=== PATIENT | female | born 1960 | race African-American/Black ===

== ENCOUNTER 2017-12-07 13:21 | Inpatient (IN) | payer MEDICARE, MEDICAID ==
[~2017-12-07] VITALS: Ht 165.1 cm; Wt 113.5 kg
--- NOTE | 2017-12-07 13:41 | PHYS DOC ---
Past History Past Medical History: CVA, Dementia, Hypertension, Schizophrenia Additional Past Medical Histor: dysphagia and aphasia Smoking: Non-smoker Alcohol Use: None Drug Use: None Adult General Chief Complaint Chief Complaint: PSYCH EVALUATION HPI HPI Patient is a pleasant 57-year-old female with known history of hypertension prior CVA with dysphagia and aphasia, advance dementia, diabetes and schizophrenia who presents with increased agitation and aggressive behavior while at the intermediate. She's been prescreened by psychiatric roaster supervisor's who sent her here for medical clearance before being admitted to the senior behavioral psych floor here at the hospital here patient on initial evaluation has no complaints although she is very difficult to understand she speaks in nonsensical words and only complains of tooth pain where her teeth are loose. She denies any chest pain, abdominal pain as far as I can understand patient is no complaint of fever or shortness of breath Review of Systems Review of Systems Patient is not a provide history other than basic this or no answers although she was very difficult to understand with her aphasia and dysphagia Most was provided as provided by intermediate notes and an oral history from nursing staff All other systems were reviewed and found to be within normal limits, except as documented in this note. Physical Exam Physical Exam Of the vital signs on the chart they are unremarkable and normal looking no evidence of hypoxia or fever Constitutional: Well developed, well nourished, she is obese no acute distress patient is somewhat dirty with grease in hair and considerable debris in her hair HENT: Normocephalic, atraumatic, bilateral external ears normal, oropharynx moist no erythema she has to teeth numbers 10 and 11 that are loose somewhat discolored although in place, no oral exudates, nose normal. [] Eyes: PERRLA, EOMI, conjunctiva normal, no discharge. [] Neck: Normal range of motion, no tenderness, supple, no stridor. No anterior lymphadenopathy [] Cardiovascular:Heart rate regular rhythm, no murmur [] Lungs & Thorax: Bilateral breath sounds clear to auscultation [] Abdomen: Bowel sounds normal, soft, no tenderness, Skin: Warm, dry, no erythema, no rash. [] Extremities: No tenderness, no clubbing or cyanosis noted no edema lower extremities noted Neurologic: Alert and oriented X 0, patient moves all limbs spontaneously she has nonsensical speech but is able to utter words that are understandable Psychologic: She is confused somewhat resistant being helped move she is not violent or aggressive at this time Current Patient Data Lab Results Laboratory Tests Test 12/07/17 13:56 12/07/17 15:00 White Blood Count 8.9 x10^3/uL (4.0-11.0) Red Blood Count 3.86 x10^6/uL (3.50-5.40) Hemoglobin 11.3 g/dL (12.0-15.5) L Hematocrit 33.3 % (36.0-47.0) L Mean Corpuscular Volume 86 fL (79-100) Mean Corpuscular Hemoglobin 29 pg (25-35) Mean Corpuscular Hemoglobin Concent 34 g/dL (31-37) Red Cell Distribution Width 13.2 % (11.5-14.5) Platelet Count 252 x10^3/uL (140-400) Neutrophils (%) (Auto) 65 % (31-73) Lymphocytes (%) (Auto) 23 % (24-48) L Monocytes (%) (Auto) 7 % (0-9) Eosinophils (%) (Auto) 5 % (0-3) H Basophils (%) (Auto) 0 % (0-3) Neutrophils # (Auto) 5.8 x10^3uL (1.8-7.7) Lymphocytes # (Auto) 2.0 x10^3/uL (1.0-4.8) Monocytes # (Auto) 0.6 x10^3/uL (0.0-1.1) Eosinophils # (Auto) 0.4 x10^3/uL (0.0-0.7) Basophils # (Auto) 0.0 x10^3/uL (0.0-0.2) Sodium Level 136 mmol/L (136-145) Potassium Level 4.1 mmol/L (3.5-5.1) Chloride Level 100 mmol/L (98-107) Carbon Dioxide Level 27 mmol/L (21-32) Anion Gap 9 (6-14) Blood Urea Nitrogen 22 mg/dL (7-20) H Creatinine 0.8 mg/dL (0.6-1.0) Estimated GFR (Cockcroft-Gault) 90.1 BUN/Creatinine Ratio 28 (6-20) H Glucose Level 110 mg/dL (70-99) H Calcium Level 9.0 mg/dL (8.5-10.1) Magnesium Level 1.7 mg/dL (1.8-2.4) L Total Bilirubin 0.1 mg/dL (0.2-1.0) L Aspartate Amino Transferase (AST) 13 U/L (15-37) L Alanine Aminotransferase (ALT) 19 U/L (14-59) Alkaline Phosphatase 75 U/L (46-116) Troponin I Quantitative < 0.017 ng/mL (0-0.055) Total Protein 7.8 g/dL (6.4-8.2) Albumin 3.4 g/dL (3.4-5.0) Albumin/Globulin Ratio 0.8 (1.0-1.7) L Salicylates Level 1.3 mg/dL (2.8-20.0) L Salicylate Last Dose Date Unk Salicylate Last Dose Time Unk Acetaminophen Level < 2.0 mcg/mL (10-30) L Acetaminophen Last Dose Date Unk Acetaminophen Last Dose Time Unk Ethyl Alcohol Level < 10 mg/dL (0-10) Urine Collection Type U cath Urine Color Straw Urine Clarity Clear Urine pH 6.0 Urine Specific [place] 1.015 Urine Protein Neg (NEG-TRACE) Urine Glucose (UA) Neg mg/dL (NEG) Urine Ketones (Stick) Neg mg/dL (NEG) Urine Blood Neg (NEG) Urine Nitrite Neg (NEG) Urine Bilirubin Neg (NEG) Urine Urobilinogen Dipstick 0.2 mg/dL (0.2 mg/dL) Urine Leukocyte Esterase Neg (NEG) Urine RBC 1-2 /HPF (0-2) Urine WBC 1-4 /HPF (0-4) Urine Squamous Epithelial Cells Mod /LPF Urine Bacteria 0 /HPF (0-FEW) Urine Mucus Slight /LPF Urine Opiates Screen Neg (NEG) Urine Methadone Screen Neg (NEG) Urine Barbiturates Neg (NEG) Urine Phencyclidine Screen Neg (NEG) Urine Amphetamine/Methamphetamine Neg (NEG) Urine Benzodiazepines Screen Neg (NEG) Urine Cocaine Screen Neg (NEG) Urine Cannabinoids Screen Neg (NEG) Urine Ethyl Alcohol Neg (NEG) EKG EKG [] Radiology/Procedures Radiology/Procedures [] Course & Med Decision Making Course & Med Decision Making Pertinent Labs and Imaging studies reviewed. (See chart for details) []She presents with worsening dementia and confusion as well as agitation intermediate. She is got a history of aphasia and dysphagia although she has no new signs or symptoms of a stroke today patient's urinalysis is unremarkable, CBC is unremarkable, CMP is unremarkable, her troponin and EKG unremarkable. Her urine drug screen is negative, alcohol, Tylenol, and salicylate levels are unremarkable she's been clear for the [facility] psych for Jorge Disclaimer Jorge Disclaimer This electronic medical record was generated, in whole or in part, using a voice recognition dictation system. Departure Departure: Impression: Primary Impression: Dementia Additional Impression: Confusion state Disposition: ADMITTED INPATIENT Admitting Physician: Other Condition: GUARDED Problem Qualifiers BLESSING GOLDEN MD Dec 07, 2017 13:41
[2017-12-07 14:13] LABS: BASO % 0 % (0-3); EOS # 0.4 x10^3/uL (0.0-0.7); EOS % 5 % (0-3); HEMATOCRIT 33.3 % (36.0-47.0); HEMOGLOBIN 11.3 g/dL (12.0-15.5); LYMPH % 23 % (24-48); MEAN CORPUSCULAR HEMOGLOBIN 29 pg (25-35); MEAN CORPUSCULAR HGB CONC 34 g/dL (31-37); MEAN CORPUSCULAR VOLUME 86 fL (79-100); MONO # 0.6 x10^3/uL (0.0-1.1); MONO % 7 % (0-9); NEUT # 5.8 x10^3uL (1.8-7.7); NEUT % 65 % (31-73); PLATELET COUNT 252 x10^3/uL (140-400); RED BLOOD COUNT 3.86 x10^6/uL (3.50-5.40); RED CELL DISTRIBUTION WIDTH 13.2 % (11.5-14.5); WHITE BLOOD COUNT 8.9 x10^3/uL (4.0-11.0)
[2017-12-07 14:26] LABS: ALBUMIN 3.4 g/dL (3.4-5.0); ALBUMIN/GLOBULIN RATIO 0.8 (1.0-1.7); CREATININE 0.8 mg/dL (0.6-1.0); GFR 90.1; MAGNESIUM 1.7 mg/dL (1.8-2.4); POTASSIUM 4.1 mmol/L (3.5-5.1); TOTAL BILIRUBIN 0.1 mg/dL (0.2-1.0); TOTAL PROTEIN 7.8 g/dL (6.4-8.2)
[2017-12-07 14:27] LABS: ACETAMIN < 2.0 mcg/mL (10-30); SALIC 1.3 mg/dL (2.8-20.0)
--- NOTE | 2017-12-07 14:40 | EKG ---
[address] [address] Test Date: 2017-12-07 Test Time: 13:43:29 Pat Name: JESSI MENDOZA Department: Room: Gender: F Logger All Round: HENRIETTA : 1960 Requested By: BLESSING GOLDEN Order Number: [id number] Reading MD: Kelvin Chen MD Measurements Intervals [place] Rate: 74 P: 29 [place]: 160 QRS: -12 QRSD: 92 T: 24 QT: 372 QTc: 413 Interpretive Statements SINUS RHYTHM Electronically Signed On 12-15-2017 9:22:46 [employer] TEACHER by Kelvin Chen MD
[2017-12-07 15:29] LABS: BARBITURATES NEG (NEG); BENZODIAZEPINES NEG (NEG); CANNABINOIDS NEG (NEG); COCAINE NEG (NEG); METHADONE NEG (NEG); OPIATES NEG (NEG); PHENCYCLIDINE NEG (NEG)
[2017-12-07 15:30] LABS: AMPHETAMINE/METHAMPHETAMINE NEG (NEG)
[2017-12-07 16:01] LABS: BACTERIA,URINE 0 /HPF (0-FEW); BILIRUBIN,URINE NEG (NEG); CLARITY,URINE CLEAR; COLOR,URINE STRAW; GLUCOSE,URINE NEG (NEG); NITRITE,URINE NEG (NEG); SQUAMOUS EPITHELIAL CELL,UR MOD /LPF; UROBILINOGEN,URINE 0.2 mg/dL (0.2 mg/dL)
[2017-12-07] MEDS ORDERED: MAG HYDROX/AL HYDROX/SIMETH 30 ML ORAL.SUSP PO PRN (17:00)
[2017-12-07] MEDS ORDERED: MAGNESIUM HYDROXIDE 2,400 MG/30 ML ORAL.SUSP. PO PRN (17:00)
[2017-12-07] MEDS ORDERED: METHYL SALICYLATE/MENTHOL TOPICAL OINTMENT 29GM TUBE. TP PRN (17:00)
[2017-12-07 17:36] VITALS: BP 121/71
[2017-12-07] MEDS ORDERED: MULT1TAB52 PO (18:05)
[2017-12-07] MEDS ORDERED: SENN-79 PO (18:05)
[2017-12-07] MEDS ORDERED: SPIR50TA2 PO (18:05)
[2017-12-07] MEDS ORDERED: LEVO75TA5 PO (18:05)
[2017-12-07] MEDS ORDERED: METF500T4 PO (18:05)
[2017-12-07] MEDS ORDERED: FURO-68 PO (18:05)
[2017-12-07] MEDS ORDERED: SIMV10TA3 PO (18:05)
[2017-12-07] MEDS ORDERED: LISI10TA2 PO (18:05)
[2017-12-07] MEDS ORDERED: ASPI-612 PO (18:05)
[2017-12-07] MEDS ORDERED: RISP0.5T3 PO (18:05)
[2017-12-07] MEDS ORDERED: MONT10TA9 PO (18:05)
[2017-12-07] MEDS ORDERED: ESCITALOPRAM OX10 MG PO (18:05)
[2017-12-07] MEDS ORDERED: LEVE100S18 PO (18:05)
[2017-12-07] MEDS: MULTIVITAMIN with MINERAL TABLET. PO SCH (20:11)
[2017-12-07] MEDS: SENNOSIDES 8.6 MG TABLET PO SCH (20:11)
[2017-12-07] MEDS: risperiDONE 0.5 MG TABLET. PO SCH (20:12)
[2017-12-07] MEDS: MONTELUKAST 10 MG TABLET. PO SCH (20:12)
[2017-12-08 06:03] VITALS: BP 128/79
[2017-12-08] MEDS: LISINOPRIL 10 MG TABLET PO SCH (08:25)
[2017-12-08] MEDS: risperiDONE 0.5 MG TABLET. PO SCH ×2 (08:25→20:52)
[2017-12-08] MEDS: SPIRONOLACTONE 25 MG TABLET PO SCH ×2 (08:26→17:33)
[2017-12-08] MEDS: metFORMIN 500 MG TABLET PO SCH ×2 (08:30→17:33)
[2017-12-08] MEDS: LEVOTHYROXINE 75 MCG TABLET PO SCH (08:30)
[2017-12-08] MEDS: ASPIRIN ENTERIC COATED 81 MG TABLET.DR. PO SCH (08:30)
[2017-12-08] MEDS: FUROSEMIDE 40 MG TABLET PO SCH (08:31)
[2017-12-08] MEDS ORDERED: CITALOPRAM 20 MG TABLET. PO SCH (09:00)
[2017-12-08 15:59] VITALS: BP 112/70
[2017-12-08] MEDS: SIMVASTATIN 10 MG TABLET PO SCH (17:35)
[2017-12-08 20:08] LABS: T3 TOTAL 90 ng/dL (71-180); THYROXINE 8.1 ug/dL (4.5-12.0)
[2017-12-08] MEDS: MONTELUKAST 10 MG TABLET. PO SCH (20:53)
[2017-12-08] MEDS: MULTIVITAMIN with MINERAL TABLET. PO SCH (20:53)
[2017-12-08] MEDS: SENNOSIDES 8.6 MG TABLET PO SCH (20:53)
[2017-12-08] MEDS: risperiDONE 2 MG TABLET. PO SCH (20:56)
[2017-12-08] MEDS: DIVALPROEX 125 MG CAP.SPRINK PO SCH (20:57)
[2017-12-09 03:20] LABS: HEMOGLOBIN A1C 5.7 % (4.8-5.6)
[2017-12-09 06:08] VITALS: BP 104/63
--- NOTE | 2017-12-09 06:09 | CONS ---
DATE OF CONSULTATION: 12/08/2017 REASON FOR CONSULTATION: Medical management. HISTORY OF PRESENT ILLNESS: The patient is a 57-year-old female patient, a resident at [facility], who was admitted to Senior Behavioral Unit on the account of refusing medication, combative with cares, agitated, hoarding behaviors, incontinent, uncooperative, resistive to care. All this in a background of bipolar disorder and schizophrenia. She is here for inpatient psychiatric stabilization. PAST MEDICAL HISTORY: Significant for type 2 diabetes mellitus, hypertension, hyperlipidemia, seizure disorder. She has left middle cerebral artery territory infarct with right-sided hemiplegia, aphasia. She is also known to have hypothyroidism and marked obesity. She has also marked lymphedema of her right lower extremity. PAST SURGICAL HISTORY: Significant for left foot surgery. FAMILY HISTORY: Unremarkable. SOCIAL HISTORY: She is a resident at a [facility] facility. She is a former smoker, does not drink alcohol or does any origin recreational drugs. ALLERGIES: She has no known drug allergies. MEDICATIONS: She is currently on following medications: Aspirin 81 mg once a day, escitalopram oxalate 10 mg once a day, furosemide 40 mg once a day, Keppra 800 mg twice a day, levothyroxine sodium 75 mcg once a day, lisinopril 10 mg once a day, metformin 500 mg twice a day with meals, Singulair 10 mg at bedtime, multivitamin 1 tablet once a day, risperidone 0.25 mg twice a day, senna 1 tablet at bedtime as needed for constipation, simvastatin 10 mg at bedtime and spironolactone 50 mg twice a day. REVIEW OF SYSTEMS: Difficult to obtain as the patient has aphasia, has difficulty finding words. PHYSICAL EXAMINATION: GENERAL: When I examined her, she was sitting comfortably in her wheelchair, in no apparent respiratory distress, slightly pale, but no jaundice, cyanosis, or thyromegaly. No jugular venous distension. No lower limb edema. VITAL SIGNS: Her heart rate was 71, blood pressure was 112/70, temperature was 97.6, respiratory rate was 18, and oxygen saturation 100% on room air. HEAD, EYES, EARS, NOSE, AND THROAT: Showed normocephalic, atraumatic. NECK: Supple. HEART: Showed normal first and second sounds. No gallop, rub or murmur. CHEST: Clear to auscultation. No crepitation or rhonchi. ABDOMEN: Distended, soft, nontender. No guarding or rigidity. No organomegaly. Hernial orifice intact. Bowel sounds normal. NEUROLOGIC: She was awake, alert. All her cranial nerves intact. She has right-sided hemiplegia and she has definitely nominal aphasia. She is very high fall risk and she is mostly wheelchair bound. LABORATORY DATA: Showed a white cell count of 8900, hemoglobin 11, hematocrit 33, MCV 86 and platelet count 252,000. Her chemistry showed a serum sodium 136, potassium 4.1, chloride 100, bicarbonate 27, anion gap of 9, BUN 22, creatinine 0.8, estimated GFR was 90 mL per minute. Her glucose was 110, calcium was 9, magnesium was 1.7. Total bilirubin, AST, ALT, alkaline phosphatase were normal. Her total protein was 7.8, albumin 3.4. Urinalysis showed the urine was straw colored, clear with a pH of 6, specific gravity of 1.015. The urine was negative for protein, glucose, ketones, blood, nitrite and leukocyte esterase. She has 1-2 rbc's, 1-4 wbc's, no bacteria and urine toxicology was essentially unremarkable. IMPRESSION: In summary, this is a 57-year-old female patient with a past medical history significant for schizophrenia and bipolar disorder, who was admitted to [facility] Unit as she has been refusing medication, combative with care, agitated, hoarding behavior, incontinent, uncooperative, resistive to care. She was started on risperidone and ineffective, was increased but still ineffective, had to increase her Lexapro without really much improvement and therefore she was admitted to this facility for inpatient psychiatric stabilization. The patient herself does not really offer any information. She was aphasic, for some reason extremely disinhibited. She has multiple medical problems including type 2 diabetes for which she is on metformin. She has hypertension. She has a seizure disorder for which she is on Keppra and hypothyroidism for which she is on levothyroxine. So far, all her vital signs seem to be stable. Her lab works generally seem to be within acceptable range. I will follow her closely and make any recommendation. Thank you, Dr. Beatty for allowing me to participate in the care of this patient. SARAH MARSHALL MD DR: AL/aggie JOB#: [id number] / [id number]
--- NOTE | 2017-12-09 07:27 | PSYEV ---
DATE OF SERVICE: 12/08/2017 REASON FOR ADMISSION: This 57-year-old single -[place] female who was admitted from [facility] where she has been a resident at least for the past 5 years. The patient also has a public zoning administrator as her guardian. The patient thinks she is still in [place]. The patient said "I am close to [place]. I am happy," and she is constantly talking about God, angels. Grandiose, laughing at times uncontrollably. HISTORY OF PRESENT ILLNESS: The patient apparently has seen by the primary care doctor and also a psychiatrist at the intermediate and lately, she has been exhibiting significant behavior problems, refusing meds, combative with care, increased agitation, holding behaviors. She is also incontinent. The patient also has history of CVA. The patient apparently has some problems with aphasia. The patient constantly laughing, somewhat intrusive and also she is grandiose, thinks Brody is with her. The patient also states she is a good rodriguez. She has been to a college and states the name of the college was [employer]. The patient was unable to give much information. She is disorganized with thinking, not able to concentrate. The patient did not show any evidence of poor impulse control, or low frustration tolerance. The patient is constantly talking. The patient was apparently unmanageable in that place. The patient also not responding to medications. PAST PSYCHIATRIC HISTORY: The patient has a diagnosis of bipolar disorder, but there is no information available. The patient is not able to give much information, but the patient apparently also has a diagnosis of schizophrenia and also patient has a court-appointed guardian, a public zoning administrator. Apparently, she must have been in treatment before. CURRENT MEDICATIONS: Include Celexa 20 mg daily, Risperdal 0.25 mg b.i.d., Keppra 800 mg b.i.d. The patient is also on Zocor 10 mg daily, Aldactone 50 mg b.i.d., lisinopril 10 mg daily, Lasix 40 mg daily, aspirin 81 mg daily, metformin 500 mg b.i.d., levothyroxine 75 mcg daily. She is on Singulair 10 mg daily. PAST MEDICAL HISTORY: History of respiratory failure, status post CVA, aphasia, asthma, diabetes insipidus, obesity, hypertension, hypothyroidism, hemiplegia, gait impairment, on wheelchair. ALLERGIES: None. PSYCHOSOCIAL HISTORY: The patient is not able to give any information. The patient denies of any alcohol or drug abuse. The patient claims she has been to college. The patient has considerable difficulty to respond to questions. The patient is talking continuously, but she is not able to answer to the questions, but her speech is clear, spontaneous with increased rate and rhythm. The patient states she had about 5 siblings. The patient apparently also has problems with swallowing. She is on mechanical soft diet. She is also on a special walker. MENTAL STATUS EXAMINATION: The patient appeared to be of her stated age, casually dressed, on wheelchair. She is able to make eye contact, increased psychomotor activity. The patient is constantly laughing, also intrusive, not able to respond to questions. She keeps talking continuously. The patient is delusional, grandiose, flight of ideas. The patient admits to auditory hallucinations, Brody talking to her. The patient also claims she is a rodriguez and she makes people happy. The patient is not able to identify her feelings and problems. The patient also has no awareness of her surroundings. She thinks she is still in [place]. The patient is oriented to surroundings, but not to date, time or year. Memory is impaired. The patient is able to name objects, but not able to recall, this mainly because of the patient's grandiosity, racing thoughts and delusional thinking and also from the CVA. The patient has not exhibited any combative behavior here. The patient's judgment is impaired. Insight limited. STRENGTHS: Fairly in good health. The patient is pleasant, able to hold a conversation but incoherent. DIAGNOSTIC IMPRESSION: AXIS I: 1. Disorganized schizophrenia. 2. Mood disorder, unspecified. AXIS II: None. AXIS III: Status post cerebrovascular accident, aphasia, asthma, diabetes insipidus, obesity, hypertension, hypothyroidism, hemiplegic, gait impairment. INITIAL TREATMENT PLAN: The patient will have a physical exam. The patient will have routine lab work including CBC, chem profile, urinalysis. The patient will be under close observation. The patient will continue on her home medications with the following changes, her Celexa to be decreased to 10 mg daily because the patient is exhibiting manic behaviors. The patient's Risperdal to be increased to 3 mg at night. The patient will be also started on Depakote 250 mg in the morning and 500 mg at night. The patient will be encouraged to attend activities. Length of stay, 7-10 days. GRANT DIETZ MD DR: DEB/aggie JOB#: [id number] / [id number]
[2017-12-09] MEDS: SPIRONOLACTONE 25 MG TABLET PO SCH ×2 (07:42→12:36)
[2017-12-09] MEDS: LISINOPRIL 10 MG TABLET PO SCH (07:42)
[2017-12-09] MEDS: risperiDONE 0.5 MG TABLET. PO SCH ×2 (07:43→19:25)
[2017-12-09] MEDS: metFORMIN 500 MG TABLET PO SCH ×2 (07:43→17:02)
[2017-12-09] MEDS: FUROSEMIDE 40 MG TABLET PO SCH (07:43)
[2017-12-09] MEDS: ASPIRIN ENTERIC COATED 81 MG TABLET.DR. PO SCH (07:43)
[2017-12-09] MEDS: LEVOTHYROXINE 75 MCG TABLET PO SCH (07:43)
[2017-12-09] MEDS: DIVALPROEX 125 MG CAP.SPRINK PO SCH ×2 (07:45→19:24)
[2017-12-09] MEDS: CITALOPRAM 10 MG TABLET. PO SCH (07:45)
[2017-12-09] MEDS: ACETAMINOPHEN 325 MG TABLET PO PRN (08:55)
[2017-12-09 15:24] VITALS: BP 103/66
[2017-12-09] MEDS: SIMVASTATIN 10 MG TABLET PO SCH (17:02)
[2017-12-09] MEDS: MULTIVITAMIN with MINERAL TABLET. PO SCH (19:24)
[2017-12-09] MEDS: MONTELUKAST 10 MG TABLET. PO SCH (19:25)
[2017-12-09] MEDS: risperiDONE 2 MG TABLET. PO SCH (19:26)
[2017-12-09] MEDS: SENNOSIDES 8.6 MG TABLET PO SCH (19:29)
[2017-12-09] MEDS: ENOXAPARIN 40 MG/0.4 ML DISP.SYRIN. SQ SCH (22:40)
[2017-12-10] MEDS: LEVOTHYROXINE 75 MCG TABLET PO SCH (06:00)
[2017-12-10 06:11] VITALS: BP 114/66
[2017-12-10] MEDS: ASPIRIN ENTERIC COATED 81 MG TABLET.DR. PO SCH (07:57)
[2017-12-10] MEDS: CITALOPRAM 10 MG TABLET. PO SCH (07:57)
[2017-12-10] MEDS: SPIRONOLACTONE 25 MG TABLET PO SCH ×2 (07:58→15:00)
[2017-12-10] MEDS: risperiDONE 0.5 MG TABLET. PO SCH ×2 (07:58→20:23)
[2017-12-10] MEDS: FUROSEMIDE 40 MG TABLET PO SCH (07:58)
[2017-12-10] MEDS: metFORMIN 500 MG TABLET PO SCH ×2 (07:58→18:26)
[2017-12-10] MEDS: LISINOPRIL 10 MG TABLET PO SCH (07:58)
[2017-12-10] MEDS: DIVALPROEX 125 MG CAP.SPRINK PO SCH ×2 (07:58→20:20)
[2017-12-10 11:14] LABS: VAL ACID 42 mcg/mL (50-100)
--- NOTE | 2017-12-10 12:22 | RAD ---
Ultrasound venous Doppler Indication:Edema to right leg Technique: Grayscale, color Doppler and spectral waveform ultrasound images of the right lower extremity deep veins. Comparison: None Findings: The interrogated lower extremity veins are compressible and demonstrate evidence of blood flow with normal respiratory variation and response to augmentation. Impression: Slight suboptimal exam due to soft tissue edema and patient demonstrating agitation. No apparent sonographic evidence of acute DVT of the interrogated right lower extremity deep veins.
--- NOTE | 2017-12-10 14:24 | PN ---
DATE: 12/09/2017 SUBJECTIVE: The patient was seen today. The patient apparently is resting. Staff did not see any major problems. Apparently, increase of medication helped her. She was less anxious, less agitated. The patient continues to have the delusional thinking, racing thoughts and hyperverbal. OBSERVATION: VITAL SIGNS: Temperature 97.2, blood pressure 104/63, pulse 79, respiration 18, O2 sat 99%. Slept about 7-1/2 hours last night. CURRENT MEDICATIONS: The patient's lab reviewed. Hemoglobin was 11.3, HCT 33.3, hemoglobin A1c was 5.7, BUN 22, glucose 110. The patient is not presenting with any side effects to the medications. The patient currently on Depakote 250 mg daily, citalopram 10 mg daily, Depakote 500 mg at night, Risperdal 3 mg at night, also 0.25 mg b.i.d. The patient will be encouraged to attend all the activities. ASSESSMENT: AXIS I: 1. Disorganized schizophrenia. 2. Mood disorder, unspecified. AXIS II: None. AXIS III: Status post cerebrovascular accident, aphasia, asthma, diabetes insipidus, obesity, hypertension, hypothyroidism, gait impairment. PLAN: To continue with the treatment. GRANT DIETZ MD DR: DEB/aggie JOB#: [id number] / [id number]
[2017-12-10 15:59] VITALS: BP 121/72
[2017-12-10] MEDS: MONTELUKAST 10 MG TABLET. PO SCH (20:20)
[2017-12-10] MEDS: SENNOSIDES 8.6 MG TABLET PO SCH (20:23)
[2017-12-10] MEDS: risperiDONE 2 MG TABLET. PO SCH (20:23)
[2017-12-10] MEDS: MULTIVITAMIN with MINERAL TABLET. PO SCH (20:23)
[2017-12-10] MEDS: SIMVASTATIN 10 MG TABLET PO SCH (20:27)
[2017-12-10] MEDS: ENOXAPARIN 40 MG/0.4 ML DISP.SYRIN. SQ SCH (20:28)
[2017-12-11] MEDS: LEVOTHYROXINE 75 MCG TABLET PO SCH (05:55)
[2017-12-11 06:09] VITALS: BP 93/50
[2017-12-11] MEDS: metFORMIN 500 MG TABLET PO SCH ×2 (07:44→18:03)
[2017-12-11] MEDS: SPIRONOLACTONE 25 MG TABLET PO SCH ×2 (07:44→13:44)
[2017-12-11] MEDS: CITALOPRAM 10 MG TABLET. PO SCH (07:44)
[2017-12-11] MEDS: ASPIRIN ENTERIC COATED 81 MG TABLET.DR. PO SCH (07:45)
[2017-12-11] MEDS: LISINOPRIL 10 MG TABLET PO SCH (07:46)
[2017-12-11] MEDS: risperiDONE 0.5 MG TABLET. PO SCH ×2 (07:46→20:28)
[2017-12-11] MEDS: DIVALPROEX 125 MG CAP.SPRINK PO SCH ×2 (07:46→20:26)
[2017-12-11] MEDS: FUROSEMIDE 40 MG TABLET PO SCH (07:46)
[2017-12-11] MEDS: ACETAMINOPHEN 325 MG TABLET PO PRN (13:45)
[2017-12-11 16:19] VITALS: BP 148/82
[2017-12-11] MEDS: CHOLECALCIFEROL (VITAMIN D3) 1,000 UNIT TABLET PO SCH (18:03)
--- NOTE | 2017-12-11 19:58 | PDOC ---
Exam Note: Alexey Note: Please also refer to the separate dictated note~for this date of service dictated separately.~Patient seen individually. Discussed the patient with Nursing staff reviewed the chart.~Reviewed interim history and current functioning. Reviewed vital signs,~Labs/ Radiology~and current medications noted below. Continue current treatment with the changes noted in the dictated addendum note Assessment: Vital Signs: Vital Signs Date Time Temp Pulse Resp B/P (MAP) Pulse Ox O2 Delivery O2 Flow Rate FiO2 12/11/17 16:19 97.9 79 20 148/82 (104) 98 12/11/17 06:09 Room Air I&O Intake and Output 12/11/17 07:00 Intake Total 980 ml Balance 980 ml Intake Oral 980 ml Current Medications: Meds: Current Medications Acetaminophen (Tylenol) 650 mg PRN Q6HRS PRN PO PAIN / TEMP Last administered on 12/11/17 13:45; Start 12/07/17 at 17:00 Multi-Ingredient Ointment (Analgesic [place]) 1 jevon PRN QID PRN TP MUSCLE PAIN; Start 12/07/17 at 17:00 Al Hydroxide/Mg Hydroxide (Mylanta Plus Xs) 15 ml PRN AFTMEALHC PRN PO DYSPEPSIA; Start 12/07/17 at 17:00 Magnesium Hydroxide (Milk Of Magnesia) 2,400 mg PRN QHS PRN PO CONSTIPATION; Start 12/07/17 at 17:00 Aspirin (Aspirin Enteric Coated) 81 mg DAILY PO Last administered on 12/11/17at 07:45; Start 12/08/17 at 09:00 Furosemide (Lasix) 40 mg DAILY PO Last administered on 12/11/17at 07:46; Start at 09:00 Levetiracetam (Keppra) 800 mg BID PO Last administered on 12/11/17 07:44; Start 12/07/17 at 21:00 Levothyroxine Sodium (Synthroid) 75 mcg DAILYAC PO Last administered on 07:43; Start 12/08/17 at 07:30; Stop 12/09/17 at 07:46; Status DC Lisinopril (Prinivil) 10 mg DAILY PO Last administered on 12/10/17at 07:58; Start 12/08/17 at 09:00 Metformin HCl (Glucophage) 500 mg BIDWMEALS PO Last administered on 12/11/17 18 :03; Start 12/08/17 at 08:00 Montelukast Sodium (Singulair) 10 mg HS PO Last administered on 12/10/17 20:20 ; Start 12/07/17 at 21:00 Risperidone (RisperDAL) 0.25 mg BID PO Last administered on 12/11/17 07:46; Start 12/07/17 at 21:00 Sennosides (Senna) 8.6 mg HS PO Last administered on 12/10/17 20:23; Start at 21:00 Simvastatin (Zocor) 10 mg DAILYWSUP PO Last administered on 12/09/17 17:02; Start 12/08/17 at 17:00; Stop 12/10/17 at 16:11; Status DC Citalopram Hydrobromide (CeleXA) 20 mg DAILY PO Last administered on 12/08/17 08:30; Start 12/08/17 at 09:00; Stop 12/08/17 at 18:24; Status DC Multivitamins/ Calcium (Thera-M Plus) 1 tab QHS PO Last administered on 20:23; Start 12/07/17 at 21:00 Spironolactone (Aldactone) 50 mg BID@0900,1500 PO Last administered on 13:44; Start 12/08/17 at 09:00 Citalopram Hydrobromide (CeleXA) 10 mg DAILY PO Last administered on 12/11/17 07:44; Start 12/09/17 at 09:00 Risperidone (RisperDAL) 3 mg HS PO Last administered on 12/10/17 20:23; Start 12/08/17 at 21:00 Divalproex Sodium (Depakote Sprinkles) 250 mg DAILY PO Last administered on 12/11 07:46; Start 12/09/17 at 09:00 Divalproex Sodium (Depakote Sprinkles) 500 mg HS PO Last administered on 20:20; Start 12/08/17 at 21:00 Levothyroxine Sodium (Synthroid) 75 mcg DAILY06 PO Last administered on 2/4/ 18at 05:55; Start 12/10/17 at 06:00 Enoxaparin Sodium (Lovenox) 40 mg Q24H SQ Last administered on 12/10/17at 20:28; Start 12/09/17 at 22:00 Simvastatin (Zocor) 10 mg HS PO Last administered on 12/10/17at 20:27; Start 12/10 at 21:00 Vitamin D (Vitamin D3) 2,000 unit DAILYBFRSUP PO Last administered on 12/11/17at 18:03; Start 12/11/17 at 17:00 Active Scripts Active Reported Levetiracetam 100 Mg/1 Ml Solution 8 Ml PO BID Spironolactone 50 Mg Tablet 50 Mg PO BID@0900,1500 Risperidone 0.5 Mg Tablet 0.25 Mg PO BID Escitalopram Oxalate 10 Mg Tablet 10 Mg PO QHS Senna (Sennosides) 8.6 Mg Tablet 8.6 Mg PO HS Multivitamins (Multivitamin) 1 Each Tablet 1 Tab PO QHS Metformin Hcl 500 Mg Tablet 500 Mg PO BIDWMEALS Montelukast Sodium Tablet (Montelukast Sodium) 10 Mg Tablet 10 Mg PO HS Levothyroxine Sodium 75 Mcg Tablet 75 Mcg PO DAILYAC Lasix (Furosemide) 40 Mg Tablet 40 Mg PO DAILY Lisinopril 10 Mg Tablet 10 Mg PO DAILY Aspirin Ec (Aspirin) 81 Mg Tablet. 81 Mg PO DAILY Simvastatin 10 Mg Tablet 10 Mg PO DAILYWSUP I have reviewed the current psychotropics carefully including drug interactions. Risk benefit ratio favors no change other than as noted in my dictated progress note. Diagnosis: Problems: (1) Confusion state (2) Dementia (3) DISORGANIZED SCHIZOPHRENIA (4) Schizophrenia, disorganized, subchronic with acute exacerbation (5) Mood disorder as late effect of cerebrovascular accident (CVA) MOE CLARK MD Dec 11, 2017 19:58
[2017-12-11] MEDS: MONTELUKAST 10 MG TABLET. PO SCH (20:26)
[2017-12-11] MEDS: MULTIVITAMIN with MINERAL TABLET. PO SCH (20:26)
[2017-12-11] MEDS: SIMVASTATIN 10 MG TABLET PO SCH (20:27)
[2017-12-11] MEDS: risperiDONE 2 MG TABLET. PO SCH (20:28)
[2017-12-11] MEDS: ENOXAPARIN 40 MG/0.4 ML DISP.SYRIN. SQ SCH (20:29)
[2017-12-11] MEDS: SENNOSIDES 8.6 MG TABLET PO SCH (20:29)
--- NOTE | 2017-12-11 23:57 | PN ---
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 She has been confined to a wheelchair because she has had right hemiparesis. Lower extremity ultrasound was performed today and revealed no evidence of acute deep venous thrombosis of the right lower extremity; however, Dr. Villagran has seen her and placed her on prophylactic of Lovenox. She denies any new medical complaints. OBJECTIVE: GENERAL: Obese female, not in acute distress. She is confined to a wheelchair, not in acute distress. VITAL SIGNS: Blood pressure 140/56, respiratory rate 18, pulse is 70, temperature 97.6, oxygen saturation 99% on room air. HEENT: Normocephalic, atraumatic, otherwise, unremarkable. NECK: Supple, negative for carotid bruit, lymphadenopathy or thyromegaly. LUNGS: Clear to A and P. CARDIOVASCULAR: Regular rate and rhythm, normal S1, S2. ABDOMEN: Soft. Bowel sounds positive. EXTREMITIES: Negative for cyanosis, clubbing or pitting edema. NEUROLOGIC: The patient is alert and oriented to herself. She is aphasic, affecting mainly comprehension, repetition, writing. She has right hemiparesis. Deep tendon reflexes were symmetric and hypoactive without pathologic responses. Gait not tested as the patient had right hemiparesis. IMPRESSION: 1. Multiple psychiatric problems include schizophrenia and bipolar disorder. There is severe depression. 2. Multiple medical problems include status post stroke with right hemiparesis, obesity, aphasia, hypertension, hypothyroidism and diabetes mellitus. RECOMMENDATIONS: Continue with current management initiated by Dr. Beatty. M Jenae GONZALEZ MD DR: SAMANTHA/aggie JOB#: [id number] / [id number]
[2017-12-12] MEDS: LEVOTHYROXINE 75 MCG TABLET PO SCH (05:56)
[2017-12-12 06:04] VITALS: BP 132/63
[2017-12-12] MEDS: FUROSEMIDE 40 MG TABLET PO SCH (08:08)
[2017-12-12] MEDS: risperiDONE 0.5 MG TABLET. PO SCH ×2 (08:08→20:17)
[2017-12-12] MEDS: ASPIRIN ENTERIC COATED 81 MG TABLET.DR. PO SCH (08:09)
[2017-12-12] MEDS: DIVALPROEX 125 MG CAP.SPRINK PO SCH ×2 (08:09→20:15)
[2017-12-12] MEDS: SPIRONOLACTONE 25 MG TABLET PO SCH ×2 (08:09→15:40)
[2017-12-12] MEDS: LISINOPRIL 10 MG TABLET PO SCH (08:09)
[2017-12-12] MEDS: metFORMIN 500 MG TABLET PO SCH ×2 (08:09→17:09)
[2017-12-12] MEDS: CITALOPRAM 10 MG TABLET. PO SCH (08:09)
[2017-12-12 09:38] LABS: BASO % 0 % (0-3); EOS # 0.3 x10^3/uL (0.0-0.7); EOS % 4 % (0-3); HEMATOCRIT 39.8 % (36.0-47.0); HEMOGLOBIN 12.6 g/dL (12.0-15.5); LYMPH # 1.9 x10^3/uL (1.0-4.8); LYMPH % 27 % (24-48); MEAN CORPUSCULAR HEMOGLOBIN 29 pg (25-35); MEAN CORPUSCULAR HGB CONC 32 g/dL (31-37); MEAN CORPUSCULAR VOLUME 93 fL (79-100); MONO # 0.4 x10^3/uL (0.0-1.1); MONO % 6 % (0-9); NEUT # 4.4 x10^3uL (1.8-7.7); NEUT % 63 % (31-73); PLATELET COUNT 254 x10^3/uL (140-400); RED BLOOD COUNT 4.29 x10^6/uL (3.50-5.40); RED CELL DISTRIBUTION WIDTH 14.3 % (11.5-14.5)
[2017-12-12 09:41] LABS: ALBUMIN 3.6 g/dL (3.4-5.0); ALBUMIN/GLOBULIN RATIO 0.7 (1.0-1.7); CALCIUM 9.5 mg/dL (8.5-10.1); CREATININE 0.9 mg/dL (0.6-1.0); GFR 78.7; MAGNESIUM 1.8 mg/dL (1.8-2.4); POTASSIUM 4.2 mmol/L (3.5-5.1); TOTAL BILIRUBIN 0.2 mg/dL (0.2-1.0); TOTAL PROTEIN 8.5 g/dL (6.4-8.2)
[2017-12-12 16:22] VITALS: BP 99/64
[2017-12-12] MEDS: CHOLECALCIFEROL (VITAMIN D3) 1,000 UNIT TABLET PO SCH (17:09)
[2017-12-12] MEDS: MONTELUKAST 10 MG TABLET. PO SCH (20:15)
[2017-12-12] MEDS: SIMVASTATIN 10 MG TABLET PO SCH (20:16)
[2017-12-12] MEDS: SENNOSIDES 8.6 MG TABLET PO SCH (20:16)
[2017-12-12] MEDS: MULTIVITAMIN with MINERAL TABLET. PO SCH (20:16)
[2017-12-12] MEDS: risperiDONE 2 MG TABLET. PO SCH (20:17)
[2017-12-12] MEDS: ENOXAPARIN 40 MG/0.4 ML DISP.SYRIN. SQ SCH (20:18)
--- NOTE | 2017-12-12 21:16 | PDOC ---
Exam Note: Alexey Note: Please also refer to the separate dictated note~for this date of service dictated separately.~Patient seen individually. Discussed the patient with Nursing staff reviewed the chart.~Reviewed interim history and current functioning. Reviewed vital signs,~Labs/ Radiology~and current medications noted below. Continue current treatment with the changes noted in the dictated addendum note Assessment: Vital Signs: Vital Signs Date Time Temp Pulse Resp B/P (MAP) Pulse Ox O2 Delivery O2 Flow Rate FiO2 12/12/17 16:22 97.4 85 16 99/64 (76) 100 12/11/17 06:09 Room Air I&O Intake and Output 12/12/17 07:00 Intake Total 1180 ml Balance 1180 ml Intake Oral 1180 ml # Voids 1 Labs: Laboratory Tests Test 12/12/17 09:15 White Blood Count 7.0 x10^3/uL (4.0-11.0) Red Blood Count 4.29 x10^6/uL (3.50-5.40) Hemoglobin 12.6 g/dL (12.0-15.5) Hematocrit 39.8 % (36.0-47.0) Mean Corpuscular Volume 93 fL (79-100) # Mean Corpuscular Hemoglobin 29 pg (25-35) Mean Corpuscular Hemoglobin Concent 32 g/dL (31-37) Red Cell Distribution Width 14.3 % (11.5-14.5) Platelet Count 254 x10^3/uL (140-400) Neutrophils (%) (Auto) 63 % (31-73) Lymphocytes (%) (Auto) 27 % (24-48) Monocytes (%) (Auto) 6 % (0-9) Eosinophils (%) (Auto) 4 % (0-3) H Basophils (%) (Auto) 0 % (0-3) Neutrophils # (Auto) 4.4 x10^3uL (1.8-7.7) Lymphocytes # (Auto) 1.9 x10^3/uL (1.0-4.8) Monocytes # (Auto) 0.4 x10^3/uL (0.0-1.1) Eosinophils # (Auto) 0.3 x10^3/uL (0.0-0.7) Basophils # (Auto) 0.0 x10^3/uL (0.0-0.2) Sodium Level 136 mmol/L (136-145) Potassium Level 4.2 mmol/L (3.5-5.1) Chloride Level 97 mmol/L (98-107) L Carbon Dioxide Level 29 mmol/L (21-32) Anion Gap 10 (6-14) Blood Urea Nitrogen 25 mg/dL (7-20) H Creatinine 0.9 mg/dL (0.6-1.0) Estimated GFR (Cockcroft-Gault) 78.7 BUN/Creatinine Ratio 28 (6-20) H Glucose Level 145 mg/dL (70-99) H Calcium Level 9.5 mg/dL (8.5-10.1) Magnesium Level 1.8 mg/dL (1.8-2.4) Total Bilirubin 0.2 mg/dL (0.2-1.0) Aspartate Amino Transferase (AST) 12 U/L (15-37) L Alanine Aminotransferase (ALT) 18 U/L (14-59) Alkaline Phosphatase 79 U/L (46-116) Total Protein 8.5 g/dL (6.4-8.2) H Albumin 3.6 g/dL (3.4-5.0) Albumin/Globulin Ratio 0.7 (1.0-1.7) L Current Medications: Meds: Current Medications Acetaminophen (Tylenol) 650 mg PRN Q6HRS PRN PO PAIN / TEMP Last administered on 12/11/17at 13:45; Start 12/07/17 at 17:00 Multi-Ingredient Ointment (Analgesic [place]) 1 jevon PRN QID PRN TP MUSCLE PAIN; Start 12/07/17 at 17:00 Al Hydroxide/Mg Hydroxide (Mylanta Plus Xs) 15 ml PRN AFTMEALHC PRN PO DYSPEPSIA; Start 12/07/17 at 17:00 Magnesium Hydroxide (Milk Of Magnesia) 2,400 mg PRN QHS PRN PO CONSTIPATION; Start 12/07/17 at 17:00 Aspirin (Aspirin Enteric Coated) 81 mg DAILY PO Last administered on 12/12/17at 08:09; Start 12/08/17 at 09:00 Furosemide (Lasix) 40 mg DAILY PO Last administered on 12/12/17at 08:08; Start at 09:00 Levetiracetam (Keppra) 800 mg BID PO Last administered on 12/12/17 20:23; Start 12/07/17 at 21:00 Levothyroxine Sodium (Synthroid) 75 mcg DAILYAC PO Last administered on 07:43; Start 12/08/17 at 07:30; Stop 12/09/17 at 07:46; Status DC Lisinopril (Prinivil) 10 mg DAILY PO Last administered on 12/12/17 08:09; Start 12/08/17 at 09:00 Metformin HCl (Glucophage) 500 mg BIDWMEALS PO Last administered on 12/12/17 17 :09; Start 12/08/17 at 08:00 Montelukast Sodium (Singulair) 10 mg HS PO Last administered on 12/12/17 20:15 ; Start 12/07/17 at 21:00 Risperidone (RisperDAL) 0.25 mg BID PO Last administered on 12/12/17 20:17; Start 12/07/17 at 21:00 Sennosides (Senna) 8.6 mg HS PO Last administered on 12/12/17 20:16; Start at 21:00 Simvastatin (Zocor) 10 mg DAILYWSUP PO Last administered on 12/09/17 17:02; Start 12/08/17 at 17:00; Stop 12/10/17 at 16:11; Status DC Citalopram Hydrobromide (CeleXA) 20 mg DAILY PO Last administered on 12/08/17at 08:30; Start 12/08/17 at 09:00; Stop 12/08/17 at 18:24; Status DC Multivitamins/ Calcium (Thera-M Plus) 1 tab QHS PO Last administered on 20:16; Start 12/07/17 at 21:00 Spironolactone (Aldactone) 50 mg BID@0900,1500 PO Last administered on at 15:40; Start 12/08/17 at 09:00 Citalopram Hydrobromide (CeleXA) 10 mg DAILY PO Last administered on 12/12/17 08:09; Start 12/09/17 at 09:00 Risperidone (RisperDAL) 3 mg HS PO Last administered on 12/12/17 20:17; Start 12/08/17 at 21:00 Divalproex Sodium (Depakote Sprinkles) 250 mg DAILY PO Last administered on 12/12 08:09; Start 12/09/17 at 09:00; Stop 12/12/17 at 18:41; Status DC Divalproex Sodium (Depakote Sprinkles) 500 mg HS PO Last administered on 20:26; Start 12/08/17 at 21:00; Stop 12/12/17 at 18:41; Status DC Levothyroxine Sodium (Synthroid) 75 mcg DAILY06 PO Last administered on 05:56; Start 12/10/17 at 06:00 Enoxaparin Sodium (Lovenox) 40 mg Q24H SQ Last administered on 12/12/17 20:18; Start 12/09/17 at 22:00 Simvastatin (Zocor) 10 mg HS PO Last administered on 12/12/17 20:16; Start 12/10 at 21:00 Vitamin D (Vitamin D3) 2,000 unit DAILYBFRSUP PO Last administered on 12/12/17 17:09; Start 12/11/17 at 17:00 Divalproex Sodium (Depakote Sprinkles) 500 mg BID PO Last administered on 20:15; Start 12/12/17 at 21:00 Active Scripts Active Reported Levetiracetam 100 Mg/1 Ml Solution 8 Ml PO BID Spironolactone 50 Mg Tablet 50 Mg PO BID@0900,1500 Risperidone 0.5 Mg Tablet 0.25 Mg PO BID Escitalopram Oxalate 10 Mg Tablet 10 Mg PO QHS Senna (Sennosides) 8.6 Mg Tablet 8.6 Mg PO HS Multivitamins (Multivitamin) 1 Each Tablet 1 Tab PO QHS Metformin Hcl 500 Mg Tablet 500 Mg PO BIDWMEALS Montelukast Sodium Tablet (Montelukast Sodium) 10 Mg Tablet 10 Mg PO HS Levothyroxine Sodium 75 Mcg Tablet 75 Mcg PO DAILYAC Lasix (Furosemide) 40 Mg Tablet 40 Mg PO DAILY Lisinopril 10 Mg Tablet 10 Mg PO DAILY Aspirin Ec (Aspirin) 81 Mg Tablet.dr 81 Mg PO DAILY Simvastatin 10 Mg Tablet 10 Mg PO DAILYWSUP I have reviewed the current psychotropics carefully including drug interactions. Risk benefit ratio favors no change other than as noted in my dictated progress note. 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
--- NOTE | 2017-12-12 23:37 | PN ---
DATE: 12/11/2017 This is a late entry for 12/11/2017 and covers elements not covered in my initial note of 12/11/2017. I met with the patient the evening of 12/11/2017. Reviewed records from Dr. Santiago. This is my first visit with the patient. Reviewed the admission history and admission by the [facility] legal guardian from [facility] on account of her worsening schizoaffective disorder symptoms, increasing agitation, hoarding behavior, combative with cares, refusing medications. Additionally, she appears to have some borderline intellectual functioning. She gets angry, aggressive when she does not get her way, urinates in the hallways and screams. REVIEW OF SYSTEMS: Ambulation impaired, in wheelchair. No CV, , pulmonary, eye system symptoms on review. MENTAL STATUS EXAM: Oriented to herself, situation at times. Speech rambling. Abstraction fair, computation impaired, language function intact, attention span short. Mood and affect remain somewhat labile. LABORATORY DATA: Reviewed. IMPRESSION: Schizoaffective disorder, bipolar type, mixed with psychotic features, borderline intellectual functioning. Rest unchanged. PLAN: Continue current psychotropics together with Risperdal, Depakote, Keppra, and Celexa. Adjust further as clinically indicated. MAN Alex CLARK MD DR: CADY/aggie JOB#: [id number] / [id number]
[2017-12-13] MEDS: LEVOTHYROXINE 75 MCG TABLET PO SCH (05:42)
[2017-12-13 05:50] VITALS: BP 111/61
[2017-12-13] MEDS: SPIRONOLACTONE 25 MG TABLET PO SCH ×2 (07:53→13:37)
[2017-12-13] MEDS: CITALOPRAM 10 MG TABLET. PO SCH ×2 (07:53→13:37)
[2017-12-13] MEDS: ASPIRIN ENTERIC COATED 81 MG TABLET.DR. PO SCH ×2 (07:53→09:00)
[2017-12-13] MEDS: CHOLECALCIFEROL (VITAMIN D3) 1,000 UNIT TABLET PO SCH ×2 (07:53→17:01)
[2017-12-13] MEDS: LISINOPRIL 10 MG TABLET PO SCH ×2 (07:53→09:00)
[2017-12-13] MEDS: FUROSEMIDE 40 MG TABLET PO SCH ×2 (07:54→09:00)
[2017-12-13] MEDS: risperiDONE 0.5 MG TABLET. PO SCH ×3 (07:54→19:40)
[2017-12-13] MEDS: DIVALPROEX 125 MG CAP.SPRINK PO SCH ×3 (07:54→19:38)
[2017-12-13] MEDS: metFORMIN 500 MG TABLET PO SCH ×3 (07:54→17:01)
[2017-12-13 15:50] VITALS: BP 116/68
[2017-12-13] MEDS: MONTELUKAST 10 MG TABLET. PO SCH (19:38)
[2017-12-13] MEDS: MULTIVITAMIN with MINERAL TABLET. PO SCH (19:38)
[2017-12-13] MEDS: SENNOSIDES 8.6 MG TABLET PO SCH (19:38)
[2017-12-13] MEDS: SIMVASTATIN 10 MG TABLET PO SCH (19:40)
[2017-12-13] MEDS: risperiDONE 2 MG TABLET. PO SCH (19:40)
[2017-12-13] MEDS: ENOXAPARIN 40 MG/0.4 ML DISP.SYRIN. SQ SCH (19:42)
--- NOTE | 2017-12-13 20:13 | PDOC ---
Exam Note: Alexey Note: Please also refer to the separate dictated note~for this date of service dictated separately.~Patient seen individually. Discussed the patient with Nursing staff reviewed the chart.~Reviewed interim history and current functioning. Reviewed vital signs,~Labs/ Radiology~and current medications noted below. Continue current treatment with the changes noted in the dictated addendum note Assessment: Vital Signs: Vital Signs Date Time Temp Pulse Resp B/P (MAP) Pulse Ox O2 Delivery O2 Flow Rate FiO2 12/13/17 15:50 97.6 72 18 116/68 (84) 100 12/11/17 06:09 Room Air I&O Intake and Output 12/13/17 07:00 Intake Total 1200 ml Balance 1200 ml Intake Oral 1200 ml # Voids 1 Current Medications: Meds: Current Medications Acetaminophen (Tylenol) 650 mg PRN Q6HRS PRN PO PAIN / TEMP Last administered on 12/11/17at 13:45; Start 12/07/17 at 17:00 Multi-Ingredient Ointment (Analgesic [place]) 1 jevon PRN QID PRN TP MUSCLE PAIN; Start 12/07/17 at 17:00 Al Hydroxide/Mg Hydroxide (Mylanta Plus Xs) 15 ml PRN AFTMEALHC PRN PO DYSPEPSIA; Start 12/07/17 at 17:00 Magnesium Hydroxide (Milk Of Magnesia) 2,400 mg PRN QHS PRN PO CONSTIPATION; Start 12/07/17 at 17:00 Aspirin (Aspirin Enteric Coated) 81 mg DAILY PO Last administered on 12/12/17at 08:09; Start 12/08/17 at 09:00 Furosemide (Lasix) 40 mg DAILY PO Last administered on 12/12/17at 08:08; Start at 09:00 Levetiracetam (Keppra) 800 mg BID PO Last administered on 12/13/17 13:36; Start 12/07/17 at 21:00 Levothyroxine Sodium (Synthroid) 75 mcg DAILYAC PO Last administered on 07:43; Start 12/08/17 at 07:30; Stop 12/09/17 at 07:46; Status DC Lisinopril (Prinivil) 10 mg DAILY PO Last administered on 12/12/17at 08:09; Start 12/08/17 at 09:00 Metformin HCl (Glucophage) 500 mg BIDWMEALS PO Last administered on 12/13/17 17 :01; Start 12/08/17 at 08:00 Montelukast Sodium (Singulair) 10 mg HS PO Last administered on 12/13/17 19:38 ; Start 12/07/17 at 21:00 Risperidone (RisperDAL) 0.25 mg BID PO Last administered on 12/13/17 19:40; Start 12/07/17 at 21:00 Sennosides (Senna) 8.6 mg HS PO Last administered on 12/13/17 19:38; Start at 21:00 Simvastatin (Zocor) 10 mg DAILYWSUP PO Last administered on 12/09/17 17:02; Start 12/08/17 at 17:00; Stop 12/10/17 at 16:11; Status DC Citalopram Hydrobromide (CeleXA) 20 mg DAILY PO Last administered on 12/08/17 08:30; Start 12/08/17 at 09:00; Stop 12/08/17 at 18:24; Status DC Multivitamins/ Calcium (Thera-M Plus) 1 tab QHS PO Last administered on 19:38; Start 12/07/17 at 21:00 Spironolactone (Aldactone) 50 mg BID@0900,1500 PO Last administered on 13:37; Start 12/08/17 at 09:00 Citalopram Hydrobromide (CeleXA) 10 mg DAILY PO Last administered on 12/13/17 13:37; Start 12/09/17 at 09:00 Risperidone (RisperDAL) 3 mg HS PO Last administered on 12/13/17 19:40; Start 12/08/17 at 21:00 Divalproex Sodium (Depakote Sprinkles) 250 mg DAILY PO Last administered on 12/12 08:09; Start 12/09/17 at 09:00; Stop 12/12/17 at 18:41; Status DC Divalproex Sodium (Depakote Sprinkles) 500 mg HS PO Last administered on 20:26; Start 12/08/17 at 21:00; Stop 12/12/17 at 18:41; Status DC Levothyroxine Sodium (Synthroid) 75 mcg DAILY06 PO Last administered on 05:42; Start 12/10/17 at 06:00 Enoxaparin Sodium (Lovenox) 40 mg Q24H SQ Last administered on 12/13/17 19:42; Start 12/09/17 at 22:00 Simvastatin (Zocor) 10 mg HS PO Last administered on 12/13/17 19:40; Start 12/10 at 21:00 Vitamin D (Vitamin D3) 2,000 unit DAILYBFRSUP PO Last administered on 12/13/17 17:01; Start 12/11/17 at 17:00 Divalproex Sodium (Depakote Sprinkles) 500 mg BID PO Last administered on 19:38; Start 12/12/17 at 21:00 Buspirone HCl (Buspar) 5 mg BID92 PO ; Start 12/14/17 at 09:00 Active Scripts Active Reported Levetiracetam 100 Mg/1 Ml Solution 8 Ml PO BID Spironolactone 50 Mg Tablet 50 Mg PO BID@0900,1500 Risperidone 0.5 Mg Tablet 0.25 Mg PO BID Escitalopram Oxalate 10 Mg Tablet 10 Mg PO QHS Senna (Sennosides) 8.6 Mg Tablet 8.6 Mg PO HS Multivitamins (Multivitamin) 1 Each Tablet 1 Tab PO QHS Metformin Hcl 500 Mg Tablet 500 Mg PO BIDWMEALS Montelukast Sodium Tablet (Montelukast Sodium) 10 Mg Tablet 10 Mg PO HS Levothyroxine Sodium 75 Mcg Tablet 75 Mcg PO DAILYAC Lasix (Furosemide) 40 Mg Tablet 40 Mg PO DAILY Lisinopril 10 Mg Tablet 10 Mg PO DAILY Aspirin Ec (Aspirin) 81 Mg Tablet. 81 Mg PO DAILY Simvastatin 10 Mg Tablet 10 Mg PO DAILYWSUP I have reviewed the current psychotropics carefully including drug interactions. Risk benefit ratio favors no change other than as noted in my dictated progress note. Diagnosis: Problems: (1) Confusion state (2) Dementia (3) DISORGANIZED SCHIZOPHRENIA (4) Schizophrenia, disorganized, subchronic with acute exacerbation (5) Mood disorder as late effect of cerebrovascular accident (CVA) MOE CLARK MD Dec 13, 2017 20:13
--- NOTE | 2017-12-13 22:23 | PN ---
DATE: 12/12/2017 This is a late entry for 12/12/2017 covers elements not covered in my initial note of 12/12/2017. SUBJECTIVE: I met with the patient in the evening of 12/12/2017. Per nursing report, the patient gets quite upset, angry, labile when she does not get her way. Speech is mumbling, difficult to understand. Facility reportedly wants her to use her walker, which she resists at times. REVIEW OF SYSTEMS: Ambulation impaired. No CV, , pulmonary, eye system symptoms on review. Reliability poor. MENTAL STATUS EXAM: Oriented to herself and situation. Speech is noted as mumbling. Abstraction fair, computation impaired, language function intact, attention span short. Mood and affect remains somewhat labile, anxious. LABORATORY DATA: Reviewed. Valproic acid level is 42. IMPRESSION: Schizoaffective disorder, bipolar type, mixed with psychotic features. PLAN: Increase Depakote from 250 mg a.m. and 500 mg at bedtime to 500 mg twice a day. Check CBC, CMP, valproic acid level in 3 days. Continue Keppra, Risperdal, Celexa at current dosage. MAN Alex CLARK MD DR: CADY/aggie JOB#: [id number] / [id number]
[2017-12-14] MEDS: LEVOTHYROXINE 75 MCG TABLET PO SCH (05:44)
[2017-12-14 06:10] VITALS: BP 106/69
[2017-12-14] MEDS: DIVALPROEX 125 MG CAP.SPRINK PO SCH ×2 (09:00→19:49)
[2017-12-14] MEDS: FUROSEMIDE 40 MG TABLET PO SCH (09:00)
[2017-12-14] MEDS: CITALOPRAM 10 MG TABLET. PO SCH (09:01)
[2017-12-14] MEDS: LISINOPRIL 10 MG TABLET PO SCH (09:01)
[2017-12-14] MEDS: SPIRONOLACTONE 25 MG TABLET PO SCH ×2 (09:01→14:34)
[2017-12-14] MEDS: ASPIRIN ENTERIC COATED 81 MG TABLET.DR. PO SCH (09:01)
[2017-12-14] MEDS: metFORMIN 500 MG TABLET PO SCH ×2 (09:01→17:51)
[2017-12-14] MEDS: risperiDONE 0.5 MG TABLET. PO SCH ×2 (09:01→19:49)
[2017-12-14] MEDS: busPIRone 5 MG TABLET. PO SCH ×2 (09:04→14:34)
[2017-12-14 16:10] VITALS: BP 103/67
[2017-12-14] MEDS: CHOLECALCIFEROL (VITAMIN D3) 1,000 UNIT TABLET PO SCH (17:51)
--- NOTE | 2017-12-14 19:12 | PDOC ---
Exam Note: Alexey Note: Please also refer to the separate dictated note~for this date of service dictated separately.~Patient seen individually. Discussed the patient with Nursing staff reviewed the chart.~Reviewed interim history and current functioning. Reviewed vital signs,~Labs/ Radiology~and current medications noted below. Continue current treatment with the changes noted in the dictated addendum note Assessment: Vital Signs: Vital Signs Date Time Temp Pulse Resp B/P (MAP) Pulse Ox O2 Delivery O2 Flow Rate FiO2 12/14/17 16:10 97.6 84 20 103/67 (79) 98 12/11/17 06:09 Room Air I&O Intake and Output 12/14/17 07:00 Intake Total 1680 ml Balance 1680 ml Intake Oral 1680 ml # Voids 1 Current Medications: Meds: Current Medications Acetaminophen (Tylenol) 650 mg PRN Q6HRS PRN PO PAIN / TEMP Last administered on 12/11/17at 13:45; Start 12/07/17 at 17:00 Multi-Ingredient Ointment (Analgesic [place]) 1 jevon PRN QID PRN TP MUSCLE PAIN; Start 12/07/17 at 17:00 Al Hydroxide/Mg Hydroxide (Mylanta Plus Xs) 15 ml PRN AFTMEALHC PRN PO DYSPEPSIA; Start 12/07/17 at 17:00 Magnesium Hydroxide (Milk Of Magnesia) 2,400 mg PRN QHS PRN PO CONSTIPATION; Start 12/07/17 at 17:00 Aspirin (Aspirin Enteric Coated) 81 mg DAILY PO Last administered on 12/14/17at 09:01; Start 12/08/17 at 09:00 Furosemide (Lasix) 40 mg DAILY PO Last administered on 12/14/17at 09:00; Start at 09:00 Levetiracetam (Keppra) 800 mg BID PO Last administered on 12/14/17 09:02; Start 12/07/17 at 21:00 Levothyroxine Sodium (Synthroid) 75 mcg DAILYAC PO Last administered on 07:43; Start 12/08/17 at 07:30; Stop 12/09/17 at 07:46; Status DC Lisinopril (Prinivil) 10 mg DAILY PO Last administered on 12/14/17at 09:01; Start 12/08/17 at 09:00 Metformin HCl (Glucophage) 500 mg BIDWMEALS PO Last administered on 12/14/17 17 :51; Start 12/08/17 at 08:00 Montelukast Sodium (Singulair) 10 mg HS PO Last administered on 12/13/17 19:38 ; Start 12/07/17 at 21:00 Risperidone (RisperDAL) 0.25 mg BID PO Last administered on 12/14/17 09:01; Start 12/07/17 at 21:00 Sennosides (Senna) 8.6 mg HS PO Last administered on 12/13/17 19:38; Start at 21:00 Simvastatin (Zocor) 10 mg DAILYWSUP PO Last administered on 12/09/17 17:02; Start 12/08/17 at 17:00; Stop 12/10/17 at 16:11; Status DC Citalopram Hydrobromide (CeleXA) 20 mg DAILY PO Last administered on 12/08/17 08:30; Start 12/08/17 at 09:00; Stop 12/08/17 at 18:24; Status DC Multivitamins/ Calcium (Thera-M Plus) 1 tab QHS PO Last administered on 19:38; Start 12/07/17 at 21:00 Spironolactone (Aldactone) 50 mg BID@0900,1500 PO Last administered on 14:34; Start 12/08/17 at 09:00 Citalopram Hydrobromide (CeleXA) 10 mg DAILY PO Last administered on 12/14/17 09:01; Start 12/09/17 at 09:00 Risperidone (RisperDAL) 3 mg HS PO Last administered on 12/13/17 19:40; Start 12/08/17 at 21:00 Divalproex Sodium (Depakote Sprinkles) 250 mg DAILY PO Last administered on 12/12 08:09; Start 12/09/17 at 09:00; Stop 12/12/17 at 18:41; Status DC Divalproex Sodium (Depakote Sprinkles) 500 mg HS PO Last administered on 20:26; Start 12/08/17 at 21:00; Stop 12/12/17 at 18:41; Status DC Levothyroxine Sodium (Synthroid) 75 mcg DAILY06 PO Last administered on at 05:44; Start 12/10/17 at 06:00 Enoxaparin Sodium (Lovenox) 40 mg Q24H SQ Last administered on 12/13/17at 19:42; Start 12/09/17 at 22:00 Simvastatin (Zocor) 10 mg HS PO Last administered on 12/13/17at 19:40; Start 12/10 at 21:00 Vitamin D (Vitamin D3) 2,000 unit DAILYBFRSUP PO Last administered on 12/14/17at 17:51; Start 12/11/17 at 17:00 Divalproex Sodium (Depakote Sprinkles) 500 mg BID PO Last administered on at 09:00; Start 12/12/17 at 21:00 Buspirone HCl (Buspar) 5 mg BID92 PO Last administered on 12/14/17at 14:34; Start 12/14/17 at 09:00 Active Scripts Active Reported Levetiracetam 100 Mg/1 Ml Solution 8 Ml PO BID Spironolactone 50 Mg Tablet 50 Mg PO BID@0900,1500 Risperidone 0.5 Mg Tablet 0.25 Mg PO BID Escitalopram Oxalate 10 Mg Tablet 10 Mg PO QHS Senna (Sennosides) 8.6 Mg Tablet 8.6 Mg PO HS Multivitamins (Multivitamin) 1 Each Tablet 1 Tab PO QHS Metformin Hcl 500 Mg Tablet 500 Mg PO BIDWMEALS Montelukast Sodium Tablet (Montelukast Sodium) 10 Mg Tablet 10 Mg PO HS Levothyroxine Sodium 75 Mcg Tablet 75 Mcg PO DAILYAC Lasix (Furosemide) 40 Mg Tablet 40 Mg PO DAILY Lisinopril 10 Mg Tablet 10 Mg PO DAILY Aspirin Ec (Aspirin) 81 Mg Tablet. 81 Mg PO DAILY Simvastatin 10 Mg Tablet 10 Mg PO DAILYWSUP I have reviewed the current psychotropics carefully including drug interactions. Risk benefit ratio favors no change other than as noted in my dictated progress note. Diagnosis: Problems: (1) Confusion state (2) Dementia (3) DISORGANIZED SCHIZOPHRENIA (4) Schizophrenia, disorganized, subchronic with acute exacerbation (5) Mood disorder as late effect of cerebrovascular accident (CVA) MOE CLARK MD Dec 14, 2017 19:12
[2017-12-14] MEDS: MULTIVITAMIN with MINERAL TABLET. PO SCH (19:48)
[2017-12-14] MEDS: risperiDONE 2 MG TABLET. PO SCH (19:48)
[2017-12-14] MEDS: SENNOSIDES 8.6 MG TABLET PO SCH (19:48)
[2017-12-14] MEDS: MONTELUKAST 10 MG TABLET. PO SCH (19:49)
[2017-12-14] MEDS: SIMVASTATIN 10 MG TABLET PO SCH (19:50)
[2017-12-14] MEDS: ENOXAPARIN 40 MG/0.4 ML DISP.SYRIN. SQ SCH (19:52)
--- NOTE | 2017-12-14 22:09 | PN ---
DATE: 12/13/2017 This is a late entry for 12/13/2017 and covers elements not covered in my initial note of 12/13/2017. I met with the patient the evening of 12/13/2017. The patient slept 8-1/2 hours previous evening, resistive to treatment, refused a.m. medications, took them later, remains anxious. REVIEW OF SYSTEMS: Ambulation impaired, in wheelchair, difficult to understand her. MENTAL STATUS EXAM: Speech low in rate and rhythm, low in volume. Abstraction fair, computation impaired, language function intact. Intellectual functioning borderline. No active suicidal or homicidal ideation. Somewhat paranoid. LABORATORY DATA: Reviewed. IMPRESSION: Schizoaffective disorder, bipolar type, mixed with psychotic features, in partial remission. PLAN: Repeat valproic acid level Tuesday morning. Start BuSpar 5 mg twice a day. Maintain rest of the psychotropics unchanged including Risperdal. MAN Alex CLARK MD DR: CADY/aggie JOB#: [id number] / [id number]
[2017-12-15 05:54] VITALS: BP 105/66
[2017-12-15] MEDS: LEVOTHYROXINE 75 MCG TABLET PO SCH (05:58)
[2017-12-15] MEDS: metFORMIN 500 MG TABLET PO SCH ×2 (08:00→17:30)
[2017-12-15] MEDS: ASPIRIN ENTERIC COATED 81 MG TABLET.DR. PO SCH (08:00)
[2017-12-15] MEDS: busPIRone 5 MG TABLET. PO SCH ×2 (08:00→14:19)
[2017-12-15] MEDS: CITALOPRAM 10 MG TABLET. PO SCH (08:00)
[2017-12-15] MEDS: risperiDONE 0.5 MG TABLET. PO SCH (08:01)
[2017-12-15] MEDS: SPIRONOLACTONE 25 MG TABLET PO SCH ×2 (08:02→15:01)
[2017-12-15] MEDS: FUROSEMIDE 40 MG TABLET PO SCH (08:03)
[2017-12-15] MEDS: LISINOPRIL 10 MG TABLET PO SCH (08:03)
[2017-12-15] MEDS: DIVALPROEX 125 MG CAP.SPRINK PO SCH ×2 (08:03→19:24)
[2017-12-15 14:59] VITALS: BP 106/55
[2017-12-15 15:20] VITALS: BP 106/55
[2017-12-15] MEDS: CHOLECALCIFEROL (VITAMIN D3) 1,000 UNIT TABLET PO SCH (17:29)
[2017-12-15] MEDS: MULTIVITAMIN with MINERAL TABLET. PO SCH (19:24)
[2017-12-15] MEDS: ENOXAPARIN 40 MG/0.4 ML DISP.SYRIN. SQ SCH (19:24)
[2017-12-15] MEDS: MONTELUKAST 10 MG TABLET. PO SCH (19:25)
[2017-12-15] MEDS: risperiDONE 2 MG TABLET. PO SCH (19:25)
[2017-12-15] MEDS: SIMVASTATIN 10 MG TABLET PO SCH (19:25)
[2017-12-15] MEDS: SENNOSIDES 8.6 MG TABLET PO SCH (19:25)
--- NOTE | 2017-12-15 20:14 | PDOC ---
Exam Note: Alexey Note: Please also refer to the separate dictated note~for this date of service dictated separately.~Patient seen individually. Discussed the patient with Nursing staff reviewed the chart.~Reviewed interim history and current functioning. Reviewed vital signs,~Labs/ Radiology~and current medications noted below. Continue current treatment with the changes noted in the dictated addendum note Assessment: Vital Signs: Vital Signs Date Time Temp Pulse Resp B/P (MAP) Pulse Ox O2 Delivery O2 Flow Rate FiO2 12/15/17 15:20 97.2 73 18 106/55 (72) 100 12/11/17 06:09 Room Air I&O Intake and Output 12/15/17 07:00 Intake Total 1200 ml Balance 1200 ml Intake Oral 1200 ml # Bowel Movements 1 Current Medications: Meds: Current Medications Acetaminophen (Tylenol) 650 mg PRN Q6HRS PRN PO PAIN / TEMP Last administered on 12/11/17at 13:45; Start 12/07/17 at 17:00 Multi-Ingredient Ointment (Analgesic [place]) 1 jevon PRN QID PRN TP MUSCLE PAIN; Start 12/07/17 at 17:00 Al Hydroxide/Mg Hydroxide (Mylanta Plus Xs) 15 ml PRN AFTMEALHC PRN PO DYSPEPSIA; Start 12/07/17 at 17:00 Magnesium Hydroxide (Milk Of Magnesia) 2,400 mg PRN QHS PRN PO CONSTIPATION; Start 12/07/17 at 17:00 Aspirin (Aspirin Enteric Coated) 81 mg DAILY PO Last administered on 12/15/17at 08:00; Start 12/08/17 at 09:00 Furosemide (Lasix) 40 mg DAILY PO Last administered on 12/15/17at 08:03; Start at 09:00 Levetiracetam (Keppra) 800 mg BID PO Last administered on 12/15/17 19:26; Start 12/07/17 at 21:00 Levothyroxine Sodium (Synthroid) 75 mcg DAILYAC PO Last administered on 07:43; Start 12/08/17 at 07:30; Stop 12/09/17 at 07:46; Status DC Lisinopril (Prinivil) 10 mg DAILY PO Last administered on 12/15/17at 08:03; Start 12/08/17 at 09:00 Metformin HCl (Glucophage) 500 mg BIDWMEALS PO Last administered on 12/15/17 17 :30; Start 12/08/17 at 08:00 Montelukast Sodium (Singulair) 10 mg HS PO Last administered on 12/15/17 19:25 ; Start 12/07/17 at 21:00 Risperidone (RisperDAL) 0.25 mg BID PO Last administered on 12/15/17 08:01; Start 12/07/17 at 21:00; Stop 12/15/17 at 11:52; Status DC Sennosides (Senna) 8.6 mg HS PO Last administered on 12/15/17 19:25; Start at 21:00 Simvastatin (Zocor) 10 mg DAILYWSUP PO Last administered on 12/09/17 17:02; Start 12/08/17 at 17:00; Stop 12/10/17 at 16:11; Status DC Citalopram Hydrobromide (CeleXA) 20 mg DAILY PO Last administered on 12/08/17 08:30; Start 12/08/17 at 09:00; Stop 12/08/17 at 18:24; Status DC Multivitamins/ Calcium (Thera-M Plus) 1 tab QHS PO Last administered on 19:24; Start 12/07/17 at 21:00 Spironolactone (Aldactone) 50 mg BID@0900,1500 PO Last administered on 15:01; Start 12/08/17 at 09:00 Citalopram Hydrobromide (CeleXA) 10 mg DAILY PO Last administered on 12/15/17 08:00; Start 12/09/17 at 09:00 Risperidone (RisperDAL) 3 mg HS PO Last administered on 12/15/17 19:25; Start 12/08/17 at 21:00; Stop 12/17/17 at 21:00 Divalproex Sodium (Depakote Sprinkles) 250 mg DAILY PO Last administered on 12/12 08:09; Start 12/09/17 at 09:00; Stop 12/12/17 at 18:41; Status DC Divalproex Sodium (Depakote Sprinkles) 500 mg HS PO Last administered on 20:26; Start 12/08/17 at 21:00; Stop 12/12/17 at 18:41; Status DC Levothyroxine Sodium (Synthroid) 75 mcg DAILY06 PO Last administered on 05:58; Start 12/10/17 at 06:00 Enoxaparin Sodium (Lovenox) 40 mg Q24H SQ Last administered on 12/15/17 19:24; Start 12/09/17 at 22:00 Simvastatin (Zocor) 10 mg HS PO Last administered on 12/15/17 19:25; Start 12/10 at 21:00 Vitamin D (Vitamin D3) 2,000 unit DAILYBFRSUP PO Last administered on 12/15/17 17:29; Start 12/11/17 at 17:00 Divalproex Sodium (Depakote Sprinkles) 500 mg BID PO Last administered on 19:24; Start 12/12/17 at 21:00 Buspirone HCl (Buspar) 5 mg BID92 PO Last administered on 12/15/17 14:19; Start 12/14/17 at 09:00 Risperidone (RisperDAL) 0.25 mg DAILY PO ; Start 12/16/17 at 09:00 Risperidone (RisperDAL) 2.75 mg HS PO ; Start 12/18/17 at 21:00; Stop 12/20/17 at 20:59 Risperidone (RisperDAL) 2.5 mg QHS PO ; Start 12/21/17 at 21:00; Stop 12/23/17 at 20:59 Risperidone (RisperDAL) 2.25 mg QHS PO ; Start 12/24/17 at 21:00; Stop 12/26/17 at 20:59 Risperidone (RisperDAL) 2 mg HS PO ; Start 12/27/17 at 21:00; Stop 12/29/17 at 20:59 Risperidone (RisperDAL) 1.75 mg HS PO ; Start 12/30/17 at 21:00 Active Scripts Active Reported Levetiracetam 100 Mg/1 Ml Solution 8 Ml PO BID Spironolactone 50 Mg Tablet 50 Mg PO BID@0900,1500 Risperidone 0.5 Mg Tablet 0.25 Mg PO BID Escitalopram Oxalate 10 Mg Tablet 10 Mg PO QHS Senna (Sennosides) 8.6 Mg Tablet 8.6 Mg PO HS Multivitamins (Multivitamin) 1 Each Tablet 1 Tab PO QHS Metformin Hcl 500 Mg Tablet 500 Mg PO BIDWMEALS Montelukast Sodium Tablet (Montelukast Sodium) 10 Mg Tablet 10 Mg PO HS Levothyroxine Sodium 75 Mcg Tablet 75 Mcg PO DAILYAC Lasix (Furosemide) 40 Mg Tablet 40 Mg PO DAILY Lisinopril 10 Mg Tablet 10 Mg PO DAILY Aspirin Ec (Aspirin) 81 Mg Tablet.dr 81 Mg PO DAILY Simvastatin 10 Mg Tablet 10 Mg PO DAILYWSUP I have reviewed the current psychotropics carefully including drug interactions. Risk benefit ratio favors no change other than as noted in my dictated progress note. Diagnosis: Problems: (1) Confusion state (2) Dementia (3) DISORGANIZED SCHIZOPHRENIA (4) Schizophrenia, disorganized, subchronic with acute exacerbation (5) Mood disorder as late effect of cerebrovascular accident (CVA) MOE CLARK MD Dec 15, 2017 20:14
[2017-12-16 05:50] VITALS: BP 130/58
[2017-12-16] MEDS: LEVOTHYROXINE 75 MCG TABLET PO SCH (06:02)
[2017-12-16] MEDS: metFORMIN 500 MG TABLET PO SCH ×2 (08:00→17:09)
[2017-12-16] MEDS: CITALOPRAM 10 MG TABLET. PO SCH (08:00)
[2017-12-16] MEDS: DIVALPROEX 125 MG CAP.SPRINK PO SCH ×2 (08:00→19:18)
[2017-12-16] MEDS: busPIRone 5 MG TABLET. PO SCH ×2 (08:00→14:38)
[2017-12-16] MEDS: FUROSEMIDE 40 MG TABLET PO SCH (08:00)
[2017-12-16] MEDS: ASPIRIN ENTERIC COATED 81 MG TABLET.DR. PO SCH (08:00)
[2017-12-16] MEDS: SPIRONOLACTONE 25 MG TABLET PO SCH (08:01)
[2017-12-16] MEDS: LISINOPRIL 10 MG TABLET PO SCH (08:01)
[2017-12-16] MEDS: risperiDONE 0.25 MG TABLET. PO SCH (08:02)
[2017-12-16 09:21] LABS: BASO % 0 % (0-3); EOS # 0.3 x10^3/uL (0.0-0.7); EOS % 4 % (0-3); HEMATOCRIT 33.6 % (36.0-47.0); HEMOGLOBIN 11.5 g/dL (12.0-15.5); LYMPH # 1.6 x10^3/uL (1.0-4.8); LYMPH % 21 % (24-48); MEAN CORPUSCULAR HEMOGLOBIN 30 pg (25-35); MEAN CORPUSCULAR HGB CONC 34 g/dL (31-37); MEAN CORPUSCULAR VOLUME 87 fL (79-100); MONO # 0.6 x10^3/uL (0.0-1.1); MONO % 7 % (0-9); NEUT # 5.3 x10^3uL (1.8-7.7); NEUT % 68 % (31-73); PLATELET COUNT 225 x10^3/uL (140-400); RED BLOOD COUNT 3.88 x10^6/uL (3.50-5.40); RED CELL DISTRIBUTION WIDTH 13.3 % (11.5-14.5); WHITE BLOOD COUNT 7.9 x10^3/uL (4.0-11.0)
[2017-12-16 09:44] LABS: ALBUMIN 3.4 g/dL (3.4-5.0); ALBUMIN/GLOBULIN RATIO 0.8 (1.0-1.7); ALK PHOS 71 U/L (46-116); ALT (SGPT) 22 U/L (14-59); ANION GAP 8 (6-14); AST (SGOT) 11 U/L (15-37); BLOOD UREA NITROGEN 31 mg/dL (7-20); BUN/CREATININE RATIO 26 (6-20); CALCIUM 9.1 mg/dL (8.5-10.1); CARBON DIOXIDE 28 mmol/L (21-32); CHLORIDE 94 mmol/L (98-107); CREATININE 1.2 mg/dL (0.6-1.0); GFR 56.4; GLUCOSE 121 mg/dL (70-99); POTASSIUM 5.2 mmol/L (3.5-5.1); SODIUM 130 mmol/L (136-145); TOTAL BILIRUBIN 0.2 mg/dL (0.2-1.0); TOTAL PROTEIN 7.9 g/dL (6.4-8.2)
[2017-12-16 09:52] LABS: VAL ACID 66 mcg/mL (50-100)
[2017-12-16 15:51] VITALS: BP 96/50
[2017-12-16] MEDS: CHOLECALCIFEROL (VITAMIN D3) 1,000 UNIT TABLET PO SCH (17:09)
[2017-12-16] MEDS: ENOXAPARIN 40 MG/0.4 ML DISP.SYRIN. SQ SCH (19:18)
[2017-12-16] MEDS: MULTIVITAMIN with MINERAL TABLET. PO SCH (19:18)
[2017-12-16] MEDS: MONTELUKAST 10 MG TABLET. PO SCH (19:18)
[2017-12-16] MEDS: SIMVASTATIN 10 MG TABLET PO SCH (19:18)
[2017-12-16] MEDS: SENNOSIDES 8.6 MG TABLET PO SCH (19:18)
[2017-12-16] MEDS: risperiDONE 2 MG TABLET. PO SCH (19:18)
--- NOTE | 2017-12-16 19:33 | PDOC ---
Exam Note: Alexey Note: Please also refer to the separate dictated note~for this date of service dictated separately.~Patient seen individually. Discussed the patient with Nursing staff reviewed the chart.~Reviewed interim history and current functioning. Reviewed vital signs,~Labs/ Radiology~and current medications noted below. Continue current treatment with the changes noted in the dictated addendum note Assessment: Vital Signs: Vital Signs Date Time Temp Pulse Resp B/P (MAP) Pulse Ox O2 Delivery O2 Flow Rate FiO2 12/16/17 15:51 97.4 69 20 96/50 (65) 100 12/11/17 06:09 Room Air I&O Intake and Output 12/16/17 07:00 Intake Total 1440 ml Balance 1440 ml Intake Oral 1440 ml Labs: Laboratory Tests Test 12/16/17 09:02 White Blood Count 7.9 x10^3/uL (4.0-11.0) Red Blood Count 3.88 x10^6/uL (3.50-5.40) Hemoglobin 11.5 g/dL (12.0-15.5) L Hematocrit 33.6 % (36.0-47.0) L Mean Corpuscular Volume 87 fL (79-100) # Mean Corpuscular Hemoglobin 30 pg (25-35) Mean Corpuscular Hemoglobin Concent 34 g/dL (31-37) Red Cell Distribution Width 13.3 % (11.5-14.5) Platelet Count 225 x10^3/uL (140-400) Neutrophils (%) (Auto) 68 % (31-73) Lymphocytes (%) (Auto) 21 % (24-48) L Monocytes (%) (Auto) 7 % (0-9) Eosinophils (%) (Auto) 4 % (0-3) H Basophils (%) (Auto) 0 % (0-3) Neutrophils # (Auto) 5.3 x10^3uL (1.8-7.7) Lymphocytes # (Auto) 1.6 x10^3/uL (1.0-4.8) Monocytes # (Auto) 0.6 x10^3/uL (0.0-1.1) Eosinophils # (Auto) 0.3 x10^3/uL (0.0-0.7) Basophils # (Auto) 0.0 x10^3/uL (0.0-0.2) Sodium Level 130 mmol/L (136-145) L Potassium Level 5.2 mmol/L (3.5-5.1) H Chloride Level 94 mmol/L (98-107) L Carbon Dioxide Level 28 mmol/L (21-32) Anion Gap 8 (6-14) Blood Urea Nitrogen 31 mg/dL (7-20) H Creatinine 1.2 mg/dL (0.6-1.0) H Estimated GFR (Cockcroft-Gault) 56.4 BUN/Creatinine Ratio 26 (6-20) H Glucose Level 121 mg/dL (70-99) H Calcium Level 9.1 mg/dL (8.5-10.1) Magnesium Level 2.0 mg/dL (1.8-2.4) Total Bilirubin 0.2 mg/dL (0.2-1.0) Aspartate Amino Transferase (AST) 11 U/L (15-37) L Alanine Aminotransferase (ALT) 22 U/L (14-59) Alkaline Phosphatase 71 U/L (46-116) Total Protein 7.9 g/dL (6.4-8.2) Albumin 3.4 g/dL (3.4-5.0) Albumin/Globulin Ratio 0.8 (1.0-1.7) L Valproic Acid Level 66 mcg/mL (50-100) Valproic Acid Last Dose Date 12/15/17 Valproic Acid Last Dose Time 2100 Current Medications: Meds: Current Medications Acetaminophen (Tylenol) 650 mg PRN Q6HRS PRN PO PAIN / TEMP Last administered on 12/11/17at 13:45; Start 12/07/17 at 17:00 Multi-Ingredient Ointment (Analgesic [place]) 1 jevon PRN QID PRN TP MUSCLE PAIN; Start 12/07/17 at 17:00 Al Hydroxide/Mg Hydroxide (Mylanta Plus Xs) 15 ml PRN AFTMEALHC PRN PO DYSPEPSIA; Start 12/07/17 at 17:00 Magnesium Hydroxide (Milk Of Magnesia) 2,400 mg PRN QHS PRN PO CONSTIPATION; Start 12/07/17 at 17:00 Aspirin (Aspirin Enteric Coated) 81 mg DAILY PO Last administered on 12/16/17at 08:00; Start 12/08/17 at 09:00 Furosemide (Lasix) 40 mg DAILY PO Last administered on 12/16/17 08:00; Start at 09:00; Stop 12/16/17 at 14:00; Status DC Levetiracetam (Keppra) 800 mg BID PO Last administered on 12/16/17 19:19; Start 12/07/17 at 21:00 Levothyroxine Sodium (Synthroid) 75 mcg DAILYAC PO Last administered on at 07:43; Start 12/08/17 at 07:30; Stop 12/09/17 at 07:46; Status DC Lisinopril (Prinivil) 10 mg DAILY PO Last administered on 12/16/17 08:01; Start 12/08/17 at 09:00; Stop 12/16/17 at 14:00; Status DC Metformin HCl (Glucophage) 500 mg BIDWMEALS PO Last administered on 12/16/17at 17 :09; Start 12/08/17 at 08:00 Montelukast Sodium (Singulair) 10 mg HS PO Last administered on 12/16/17 19:18 ; Start 12/07/17 at 21:00 Risperidone (RisperDAL) 0.25 mg BID PO Last administered on 12/15/17 08:01; Start 12/07/17 at 21:00; Stop 12/15/17 at 11:52; Status DC Sennosides (Senna) 8.6 mg HS PO Last administered on 12/16/17 19:18; Start at 21:00 Simvastatin (Zocor) 10 mg DAILYWSUP PO Last administered on 12/09/17at 17:02; Start 12/08/17 at 17:00; Stop 12/10/17 at 16:11; Status DC Citalopram Hydrobromide (CeleXA) 20 mg DAILY PO Last administered on 12/08/17at 08:30; Start 12/08/17 at 09:00; Stop 12/08/17 at 18:24; Status DC Multivitamins/ Calcium (Thera-M Plus) 1 tab QHS PO Last administered on 19:18; Start 12/07/17 at 21:00 Spironolactone (Aldactone) 50 mg BID@0900,1500 PO Last administered on 08:01; Start 12/08/17 at 09:00; Stop 12/16/17 at 14:00; Status DC Citalopram Hydrobromide (CeleXA) 10 mg DAILY PO Last administered on 12/16/17 08:00; Start 12/09/17 at 09:00 Risperidone (RisperDAL) 3 mg HS PO Last administered on 12/16/17 19:18; Start 12/08/17 at 21:00; Stop 12/17/17 at 21:00 Divalproex Sodium (Depakote Sprinkles) 250 mg DAILY PO Last administered on 12/12 08:09; Start 12/09/17 at 09:00; Stop 12/12/17 at 18:41; Status DC Divalproex Sodium (Depakote Sprinkles) 500 mg HS PO Last administered on 20:26; Start 12/08/17 at 21:00; Stop 12/12/17 at 18:41; Status DC Levothyroxine Sodium (Synthroid) 75 mcg DAILY06 PO Last administered on 06:02; Start 12/10/17 at 06:00 Enoxaparin Sodium (Lovenox) 40 mg Q24H SQ Last administered on 12/16/17 19:18; Start 12/09/17 at 22:00 Simvastatin (Zocor) 10 mg HS PO Last administered on 12/16/17 19:18; Start 12/10 at 21:00 Vitamin D (Vitamin D3) 2,000 unit DAILYBFRSUP PO Last administered on 12/16/17 17:09; Start 12/11/17 at 17:00 Divalproex Sodium (Depakote Sprinkles) 500 mg BID PO Last administered on 19:18; Start 12/12/17 at 21:00 Buspirone HCl (Buspar) 5 mg BID92 PO Last administered on 12/16/17 14:38; Start 12/14/17 at 09:00 Risperidone (RisperDAL) 0.25 mg DAILY PO Last administered on 12/16/17 08:02; Start 12/16/17 at 09:00 Risperidone (RisperDAL) 2.75 mg HS PO ; Start 12/18/17 at 21:00; Stop 12/20/17 at 20:59 Risperidone (RisperDAL) 2.5 mg QHS PO ; Start 12/21/17 at 21:00; Stop 12/23/17 at 20:59 Risperidone (RisperDAL) 2.25 mg QHS PO ; Start 12/24/17 at 21:00; Stop 12/26/17 at 20:59 Risperidone (RisperDAL) 2 mg HS PO ; Start 12/27/17 at 21:00; Stop 12/29/17 at 20:59 Risperidone (RisperDAL) 1.75 mg HS PO ; Start 12/30/17 at 21:00 Furosemide (Lasix) 20 mg DAILY PO ; Start 12/17/17 at 09:00 Lisinopril (Prinivil) 5 mg DAILY PO ; Start 12/17/17 at 09:00 Spironolactone (Aldactone) 50 mg DAILY08 PO ; Start 12/17/17 at 08:00 Active Scripts Active Reported Levetiracetam 100 Mg/1 Ml Solution 8 Ml PO BID Spironolactone 50 Mg Tablet 50 Mg PO BID@0900,1500 Risperidone 0.5 Mg Tablet 0.25 Mg PO BID Escitalopram Oxalate 10 Mg Tablet 10 Mg PO QHS Senna (Sennosides) 8.6 Mg Tablet 8.6 Mg PO HS Multivitamins (Multivitamin) 1 Each Tablet 1 Tab PO QHS Metformin Hcl 500 Mg Tablet 500 Mg PO BIDWMEALS Montelukast Sodium Tablet (Montelukast Sodium) 10 Mg Tablet 10 Mg PO HS Levothyroxine Sodium 75 Mcg Tablet 75 Mcg PO DAILYAC Lasix (Furosemide) 40 Mg Tablet 40 Mg PO DAILY Lisinopril 10 Mg Tablet 10 Mg PO DAILY Aspirin Ec (Aspirin) 81 Mg Tablet. 81 Mg PO DAILY Simvastatin 10 Mg Tablet 10 Mg PO DAILYWSUP I have reviewed the current psychotropics carefully including drug interactions. Risk benefit ratio favors no change other than as noted in my dictated progress note. Diagnosis: Problems: (1) Confusion state (2) Dementia (3) DISORGANIZED SCHIZOPHRENIA (4) Schizophrenia, disorganized, subchronic with acute exacerbation (5) Mood disorder as late effect of cerebrovascular accident (CVA) MOE CLARK MD Dec 16, 2017 19:33
--- NOTE | 2017-12-17 00:24 | PN ---
DATE: 12/14/2017 This is a late entry for 12/14/2017 covers elements not covered in my initial note of 12/14/2017. SUBJECTIVE: I met with the patient in the evening of 12/14/2017. Overall, behaviorally, the patient is doing better, incontinent at times. meds have to be crushed. She was started on BuSpar, labs due on Tuesday. REVIEW OF SYSTEMS: Ambulation impaired. No CV, , pulmonary, eye system symptoms on review. Ambulates with a walker. MENTAL STATUS EXAM: Oriented to herself and situation. Speech, often responses monosyllabic. Abstraction fair, computation impaired, language function intact, attention span short. Mood and affect somewhat withdrawn, less labile. LABORATORY DATA: Reviewed. IMPRESSION: Schizoaffective disorder, bipolar type, mixed with psychotic features, in partial remission. PLAN: Continue current psychotropics. Adjust further as clinically indicated. We may consider reducing the Risperdal given history of CVA. MAN Alex CLARK MD DR: CADY/aggie JOB#: [id number] / [id number]
--- NOTE | 2017-12-17 04:03 | PN ---
DATE: 12/15/2017 This is a late entry of 12/15/2017 covers elements not covered in my initial note of 12/15/2017. I met with the patient in the evening of 12/15/2017 and staffed at a treatment team meeting with the entire team morning of 12/15/2017. The patient slept 8-3/4 hours previous evening, has been holding things incontinent at times, uses the walker to ambulate. Refused her medications x 1. Reviewed her history at length. She was functioning very well, both in her marriage and educationally and with her jobs and then she got involved with the [employer] and then got into abusing alcohol, was psychotic. Her then suddenly secondary to an RI. She seemed to decompensate from then on. She gained a significant amount of weight and was psychotic. One of her sons joined the and then she ultimately suffered a CVA. REVIEW OF SYSTEMS: Ambulation impaired with walker. No CV, , pulmonary, eye system symptoms on review. MENTAL STATUS EXAM: Oriented to herself and situation. Speech, low in volume, coherent, abstraction fair, computation impaired, language function intact, attention span short. Mood and affect somewhat labile at times. LABORATORY DATA: Reviewed. IMPRESSION: Schizoaffective disorder, bipolar type, mixed with psychotic features. Rest diagnosis unchanged. PLAN: The patient is on 3.5 mg of Risperdal. No clear psychotic symptoms are noted, we will gradually taper it by 0.25 mg every 2 days until we reached 2 mg a day. Continue Celexa, Keppra, BuSpar, and Depakote at current dosage. Valproic acid level is 42. Depakote has been increased and we will repeat labs on 12/16/2017 and adjust to reach a therapeutic level. MAN Alex CLARK MD DR: CADY/aggie JOB#: [id number] / [id number]
[2017-12-17 05:47] VITALS: BP 111/45
[2017-12-17] MEDS: LEVOTHYROXINE 75 MCG TABLET PO SCH (05:53)
[2017-12-17] MEDS: risperiDONE 0.25 MG TABLET. PO SCH (07:49)
[2017-12-17] MEDS: metFORMIN 500 MG TABLET PO SCH ×2 (07:49→16:50)
[2017-12-17] MEDS: CITALOPRAM 10 MG TABLET. PO SCH (07:49)
[2017-12-17] MEDS: DIVALPROEX 125 MG CAP.SPRINK PO SCH ×2 (07:49→19:33)
[2017-12-17] MEDS: ASPIRIN ENTERIC COATED 81 MG TABLET.DR. PO SCH (07:49)
[2017-12-17] MEDS: busPIRone 5 MG TABLET. PO SCH ×2 (07:49→14:00)
[2017-12-17] MEDS: SPIRONOLACTONE 25 MG TABLET PO SCH (07:52)
[2017-12-17] MEDS: LISINOPRIL 5 MG TABLET. PO SCH (07:52)
[2017-12-17] MEDS: FUROSEMIDE 20 MG TABLET PO SCH (07:52)
[2017-12-17 16:15] VITALS: BP 108/64
[2017-12-17] MEDS: CHOLECALCIFEROL (VITAMIN D3) 1,000 UNIT TABLET PO SCH (16:50)
[2017-12-17] MEDS: SENNOSIDES 8.6 MG TABLET PO SCH (19:33)
[2017-12-17] MEDS: risperiDONE 2 MG TABLET. PO SCH (19:33)
[2017-12-17] MEDS: MONTELUKAST 10 MG TABLET. PO SCH (19:33)
[2017-12-17] MEDS: MULTIVITAMIN with MINERAL TABLET. PO SCH (19:33)
[2017-12-17] MEDS: SIMVASTATIN 10 MG TABLET PO SCH (19:33)
[2017-12-17] MEDS: ENOXAPARIN 40 MG/0.4 ML DISP.SYRIN. SQ SCH (19:35)
--- NOTE | 2017-12-17 21:25 | PDOC ---
Exam Note: Alexey Note: Please also refer to the separate dictated note~for this date of service dictated separately.~Patient seen individually. Discussed the patient with Nursing staff reviewed the chart.~Reviewed interim history and current functioning. Reviewed vital signs,~Labs/ Radiology~and current medications noted below. Continue current treatment with the changes noted in the dictated addendum note Assessment: Vital Signs: Vital Signs Date Time Temp Pulse Resp B/P (MAP) Pulse Ox O2 Delivery O2 Flow Rate FiO2 12/17/17 16:15 97.2 68 16 108/64 (79) 100 Room Air I&O Intake and Output 12/17/17 07:00 Intake Total 1440 ml Balance 1440 ml Intake Oral 1440 ml # Bowel Movements 1 Current Medications: Meds: Current Medications Acetaminophen (Tylenol) 650 mg PRN Q6HRS PRN PO PAIN / TEMP Last administered on 12/11/17at 13:45; Start 12/07/17 at 17:00 Multi-Ingredient Ointment (Analgesic [place]) 1 jevon PRN QID PRN TP MUSCLE PAIN; Start 12/07/17 at 17:00 Al Hydroxide/Mg Hydroxide (Mylanta Plus Xs) 15 ml PRN AFTMEALHC PRN PO DYSPEPSIA; Start 12/07/17 at 17:00 Magnesium Hydroxide (Milk Of Magnesia) 2,400 mg PRN QHS PRN PO CONSTIPATION; Start 12/07/17 at 17:00 Aspirin (Aspirin Enteric Coated) 81 mg DAILY PO Last administered on 12/17/17at 07:49; Start 12/08/17 at 09:00 Furosemide (Lasix) 40 mg DAILY PO Last administered on 12/16/17at 08:00; Start at 09:00; Stop 12/16/17 at 14:00; Status DC Levetiracetam (Keppra) 800 mg BID PO Last administered on 12/17/17 19:37; Start 12/07/17 at 21:00 Levothyroxine Sodium (Synthroid) 75 mcg DAILYAC PO Last administered on 07:43; Start 12/08/17 at 07:30; Stop 12/09/17 at 07:46; Status DC Lisinopril (Prinivil) 10 mg DAILY PO Last administered on 12/16/17at 08:01; Start 12/08/17 at 09:00; Stop 12/16/17 at 14:00; Status DC Metformin HCl (Glucophage) 500 mg BIDWMEALS PO Last administered on 12/17/17 16:50; Start 12/08/17 at 08:00 Montelukast Sodium (Singulair) 10 mg HS PO Last administered on 12/17/17 19:33 ; Start 12/07/17 at 21:00 Risperidone (RisperDAL) 0.25 mg BID PO Last administered on 12/15/17 08:01; Start 12/07/17 at 21:00; Stop 12/15/17 at 11:52; Status DC Sennosides (Senna) 8.6 mg HS PO Last administered on 12/17/17 19:33; Start at 21:00 Simvastatin (Zocor) 10 mg DAILYWSUP PO Last administered on 12/09/17 17:02; Start 12/08/17 at 17:00; Stop 12/10/17 at 16:11; Status DC Citalopram Hydrobromide (CeleXA) 20 mg DAILY PO Last administered on 12/08/17 08:30; Start 12/08/17 at 09:00; Stop 12/08/17 at 18:24; Status DC Multivitamins/ Calcium (Thera-M Plus) 1 tab QHS PO Last administered on 19:33; Start 12/07/17 at 21:00 Spironolactone (Aldactone) 50 mg BID@0900,1500 PO Last administered on 08:01; Start 12/08/17 at 09:00; Stop 12/16/17 at 14:00; Status DC Citalopram Hydrobromide (CeleXA) 10 mg DAILY PO Last administered on 12/17/17 07:49; Start 12/09/17 at 09:00 Risperidone (RisperDAL) 3 mg HS PO Last administered on 12/17/17 19:33; Start 12/08/17 at 21:00; Stop 12/17/17 at 21:00; Status DC Divalproex Sodium (Depakote Sprinkles) 250 mg DAILY PO Last administered on 12/12 08:09; Start 12/09/17 at 09:00; Stop 12/12/17 at 18:41; Status DC Divalproex Sodium (Depakote Sprinkles) 500 mg HS PO Last administered on at 20:26; Start 12/08/17 at 21:00; Stop 12/12/17 at 18:41; Status DC Levothyroxine Sodium (Synthroid) 75 mcg DAILY06 PO Last administered on 05:53; Start 12/10/17 at 06:00 Enoxaparin Sodium (Lovenox) 40 mg Q24H SQ Last administered on 12/17/17 19:35 ; Start 12/09/17 at 22:00 Simvastatin (Zocor) 10 mg HS PO Last administered on 12/17/17 19:33; Start 12/10/17 at 21:00 Vitamin D (Vitamin D3) 2,000 unit DAILYBFRSUP PO Last administered on 16:50; Start 12/11/17 at 17:00 Divalproex Sodium (Depakote Sprinkles) 500 mg BID PO Last administered on 19:33; Start 12/12/17 at 21:00 Buspirone HCl (Buspar) 5 mg BID92 PO Last administered on 12/17/17 07:49; Start 12/14/17 at 09:00 Risperidone (RisperDAL) 0.25 mg DAILY PO Last administered on 12/17/17 07:49; Start 12/16/17 at 09:00 Risperidone (RisperDAL) 2.75 mg HS PO ; Start 12/18/17 at 21:00; Stop 12/20/17 at 20:59 Risperidone (RisperDAL) 2.5 mg QHS PO ; Start 12/21/17 at 21:00; Stop 12/23/17 at 20:59 Risperidone (RisperDAL) 2.25 mg QHS PO ; Start 12/24/17 at 21:00; Stop 12/26/17 at 20:59 Risperidone (RisperDAL) 2 mg HS PO ; Start 12/27/17 at 21:00; Stop 12/29/17 at 20:59 Risperidone (RisperDAL) 1.75 mg HS PO ; Start 2/23/18 at 21:00 Furosemide (Lasix) 20 mg DAILY PO Last administered on 12/17/17at 07:52; Start 12/17/17 at 09:00 Lisinopril (Prinivil) 5 mg DAILY PO ; Start 12/17/17 at 09:00 Spironolactone (Aldactone) 50 mg DAILY08 PO Last administered on 12/17/17at 07: 52; Start 12/17/17 at 08:00 Active Scripts Active Reported Levetiracetam 100 Mg/1 Ml Solution 8 Ml PO BID Spironolactone 50 Mg Tablet 50 Mg PO BID@0900,1500 Risperidone 0.5 Mg Tablet 0.25 Mg PO BID Escitalopram Oxalate 10 Mg Tablet 10 Mg PO QHS Senna (Sennosides) 8.6 Mg Tablet 8.6 Mg PO HS Multivitamins (Multivitamin) 1 Each Tablet 1 Tab PO QHS Metformin Hcl 500 Mg Tablet 500 Mg PO BIDWMEALS Montelukast Sodium Tablet (Montelukast Sodium) 10 Mg Tablet 10 Mg PO HS Levothyroxine Sodium 75 Mcg Tablet 75 Mcg PO DAILYAC Lasix (Furosemide) 40 Mg Tablet 40 Mg PO DAILY Lisinopril 10 Mg Tablet 10 Mg PO DAILY Aspirin Ec (Aspirin) 81 Mg Tablet. 81 Mg PO DAILY Simvastatin 10 Mg Tablet 10 Mg PO DAILYWSUP I have reviewed the current psychotropics carefully including drug interactions. Risk benefit ratio favors no change other than as noted in my dictated progress note. Diagnosis: Problems: (1) Confusion state (2) Dementia (3) DISORGANIZED SCHIZOPHRENIA (4) Schizophrenia, disorganized, subchronic with acute exacerbation (5) Mood disorder as late effect of cerebrovascular accident (CVA) MOE CLARK MD Dec 17, 2017 21:25
[2017-12-18 05:43] VITALS: BP 114/53
[2017-12-18] MEDS: LEVOTHYROXINE 75 MCG TABLET PO SCH (05:59)
[2017-12-18] MEDS: LISINOPRIL 5 MG TABLET. PO SCH (07:48)
[2017-12-18] MEDS: DIVALPROEX 125 MG CAP.SPRINK PO SCH ×2 (07:48→19:39)
[2017-12-18] MEDS: risperiDONE 0.25 MG TABLET. PO SCH (07:48)
[2017-12-18] MEDS: CITALOPRAM 10 MG TABLET. PO SCH (07:48)
[2017-12-18] MEDS: SPIRONOLACTONE 25 MG TABLET PO SCH (07:48)
[2017-12-18] MEDS: busPIRone 5 MG TABLET. PO SCH ×2 (07:48→14:02)
[2017-12-18] MEDS: metFORMIN 500 MG TABLET PO SCH ×2 (07:48→17:38)
[2017-12-18] MEDS: ASPIRIN ENTERIC COATED 81 MG TABLET.DR. PO SCH (07:48)
[2017-12-18] MEDS: FUROSEMIDE 20 MG TABLET PO SCH (07:49)
[2017-12-18 16:02] VITALS: BP 125/58
[2017-12-18] MEDS: CHOLECALCIFEROL (VITAMIN D3) 1,000 UNIT TABLET PO SCH (17:38)
[2017-12-18] MEDS: MULTIVITAMIN with MINERAL TABLET. PO SCH (19:39)
[2017-12-18] MEDS: SIMVASTATIN 10 MG TABLET PO SCH (19:39)
[2017-12-18] MEDS: MONTELUKAST 10 MG TABLET. PO SCH (19:39)
[2017-12-18] MEDS: SENNOSIDES 8.6 MG TABLET PO SCH (19:39)
[2017-12-18] MEDS: ENOXAPARIN 40 MG/0.4 ML DISP.SYRIN. SQ SCH (19:41)
[2017-12-18] MEDS: risperiDONE 1 MG TABLET. PO SCH (19:42)
--- NOTE | 2017-12-18 20:34 | PDOC ---
Exam Note: Alexey Note: Please also refer to the separate dictated note~for this date of service dictated separately.~Patient seen individually. Discussed the patient with Nursing staff reviewed the chart.~Reviewed interim history and current functioning. Reviewed vital signs,~Labs/ Radiology~and current medications noted below. Continue current treatment with the changes noted in the dictated addendum note Assessment: Vital Signs: Vital Signs Date Time Temp Pulse Resp B/P (MAP) Pulse Ox O2 Delivery O2 Flow Rate FiO2 12/18/17 16:02 97.9 74 20 125/58 (80) 97 12/17/17 16:15 Room Air I&O Intake and Output 12/18/17 07:00 Intake Total 1320 ml Balance 1320 ml Intake Oral 1320 ml Current Medications: Meds: Current Medications Acetaminophen (Tylenol) 650 mg PRN Q6HRS PRN PO PAIN / TEMP Last administered on 12/11/17at 13:45; Start 12/07/17 at 17:00 Multi-Ingredient Ointment (Analgesic [place]) 1 jevon PRN QID PRN TP MUSCLE PAIN; Start 12/07/17 at 17:00 Al Hydroxide/Mg Hydroxide (Mylanta Plus Xs) 15 ml PRN AFTMEALHC PRN PO DYSPEPSIA; Start 12/07/17 at 17:00 Magnesium Hydroxide (Milk Of Magnesia) 2,400 mg PRN QHS PRN PO CONSTIPATION; Start 12/07/17 at 17:00 Aspirin (Aspirin Enteric Coated) 81 mg DAILY PO Last administered on 12/18/17at 07:48; Start 12/08/17 at 09:00 Furosemide (Lasix) 40 mg DAILY PO Last administered on 12/16/17 08:00; Start at 09:00; Stop 12/16/17 at 14:00; Status DC Levetiracetam (Keppra) 800 mg BID PO Last administered on 12/18/17 19:40; Start 12/07/17 at 21:00 Levothyroxine Sodium (Synthroid) 75 mcg DAILYAC PO Last administered on 07:43; Start 12/08/17 at 07:30; Stop 12/09/17 at 07:46; Status DC Lisinopril (Prinivil) 10 mg DAILY PO Last administered on 12/16/17at 08:01; Start 12/08/17 at 09:00; Stop 12/16/17 at 14:00; Status DC Metformin HCl (Glucophage) 500 mg BIDWMEALS PO Last administered on 12/18/17 17:38; Start 12/08/17 at 08:00 Montelukast Sodium (Singulair) 10 mg HS PO Last administered on 12/18/17 19:39 ; Start 12/07/17 at 21:00 Risperidone (RisperDAL) 0.25 mg BID PO Last administered on 12/15/17 08:01; Start 12/07/17 at 21:00; Stop 12/15/17 at 11:52; Status DC Sennosides (Senna) 8.6 mg HS PO Last administered on 12/18/17 19:39; Start at 21:00 Simvastatin (Zocor) 10 mg DAILYWSUP PO Last administered on 12/09/17 17:02; Start 12/08/17 at 17:00; Stop 12/10/17 at 16:11; Status DC Citalopram Hydrobromide (CeleXA) 20 mg DAILY PO Last administered on 12/08/17 08:30; Start 12/08/17 at 09:00; Stop 12/08/17 at 18:24; Status DC Multivitamins/ Calcium (Thera-M Plus) 1 tab QHS PO Last administered on 19:39; Start 12/07/17 at 21:00 Spironolactone (Aldactone) 50 mg BID@0900,1500 PO Last administered on 08:01; Start 12/08/17 at 09:00; Stop 12/16/17 at 14:00; Status DC Citalopram Hydrobromide (CeleXA) 10 mg DAILY PO Last administered on 12/18/17 07:48; Start 12/09/17 at 09:00 Risperidone (RisperDAL) 3 mg HS PO Last administered on 12/17/17 19:33; Start 12/08/17 at 21:00; Stop 12/17/17 at 21:00; Status DC Divalproex Sodium (Depakote Sprinkles) 250 mg DAILY PO Last administered on 2/5 /18at 08:09; Start 12/09/17 at 09:00; Stop 12/12/17 at 18:41; Status DC Divalproex Sodium (Depakote Sprinkles) 500 mg HS PO Last administered on 20:26; Start 12/08/17 at 21:00; Stop 12/12/17 at 18:41; Status DC Levothyroxine Sodium (Synthroid) 75 mcg DAILY06 PO Last administered on 05:59; Start 12/10/17 at 06:00 Enoxaparin Sodium (Lovenox) 40 mg Q24H SQ Last administered on 12/18/17 19:41 ; Start 12/09/17 at 22:00 Simvastatin (Zocor) 10 mg HS PO Last administered on 12/18/17 19:39; Start 12/10/17 at 21:00 Vitamin D (Vitamin D3) 2,000 unit DAILYBFRSUP PO Last administered on 17:38; Start 12/11/17 at 17:00 Divalproex Sodium (Depakote Sprinkles) 500 mg BID PO Last administered on 19:39; Start 12/12/17 at 21:00 Buspirone HCl (Buspar) 5 mg BID92 PO Last administered on 12/18/17 14:02; Start 12/14/17 at 09:00 Risperidone (RisperDAL) 0.25 mg DAILY PO Last administered on 12/18/17 07:48; Start 12/16/17 at 09:00 Risperidone (RisperDAL) 2.75 mg HS PO Last administered on 12/18/17 19:42; Start 12/18/17 at 21:00; Stop 12/20/17 at 20:59 Risperidone (RisperDAL) 2.5 mg QHS PO ; Start 12/21/17 at 21:00; Stop 12/23/17 at 20:59 Risperidone (RisperDAL) 2.25 mg QHS PO ; Start 12/24/17 at 21:00; Stop 12/26/17 at 20:59 Risperidone (RisperDAL) 2 mg HS PO ; Start 12/27/17 at 21:00; Stop 12/29/17 at 20:59 Risperidone (RisperDAL) 1.75 mg HS PO ; Start 12/30/17 at 21:00 Furosemide (Lasix) 20 mg DAILY PO Last administered on 12/18/17at 07:49; Start 12/17/17 at 09:00 Lisinopril (Prinivil) 5 mg DAILY PO ; Start 12/17/17 at 09:00 Spironolactone (Aldactone) 50 mg DAILY08 PO Last administered on 12/18/17at 07: 48; Start 12/17/17 at 08:00 Active Scripts Active Reported Levetiracetam 100 Mg/1 Ml Solution 8 Ml PO BID Spironolactone 50 Mg Tablet 50 Mg PO BID@0900,1500 Risperidone 0.5 Mg Tablet 0.25 Mg PO BID Escitalopram Oxalate 10 Mg Tablet 10 Mg PO QHS Senna (Sennosides) 8.6 Mg Tablet 8.6 Mg PO HS Multivitamins (Multivitamin) 1 Each Tablet 1 Tab PO QHS Metformin Hcl 500 Mg Tablet 500 Mg PO BIDWMEALS Montelukast Sodium Tablet (Montelukast Sodium) 10 Mg Tablet 10 Mg PO HS Levothyroxine Sodium 75 Mcg Tablet 75 Mcg PO DAILYAC Lasix (Furosemide) 40 Mg Tablet 40 Mg PO DAILY Lisinopril 10 Mg Tablet 10 Mg PO DAILY Aspirin Ec (Aspirin) 81 Mg Tablet. 81 Mg PO DAILY Simvastatin 10 Mg Tablet 10 Mg PO DAILYWSUP I have reviewed the current psychotropics carefully including drug interactions. Risk benefit ratio favors no change other than as noted in my dictated progress note. Diagnosis: Problems: (1) Confusion state (2) Dementia (3) DISORGANIZED SCHIZOPHRENIA (4) Schizophrenia, disorganized, subchronic with acute exacerbation (5) Mood disorder as late effect of cerebrovascular accident (CVA) MOE CLARK MD Dec 18, 2017 20:34
--- NOTE | 2017-12-19 00:27 | PN ---
DATE: 12/16/2017 PSYCHIATRIC PROGRESS NOTE This is a late entry for 12/16/2017, covers elements not covered in my initial note of 12/16/2017. SUBJECTIVE: I met with the patient in evening of 12/16/2017. The patient has been cooperative, compliant with medications, slept 7-3/4 hours previous evening, done better previous evening, and the day of 12/16/2017. REVIEW OF SYSTEMS: Ambulation impaired, in walker. No CV, , pulmonary, eye system symptoms on review. MENTAL STATUS EXAM: Oriented to herself and situation. Speech moderate latency, low in volume. Abstraction fair, computation impaired. She is pleasant, smiling, still somewhat suspicious, but tolerating the reduction of Risperdal. LABORATORY DATA: Reviewed. IMPRESSION: Schizoaffective disorder, bipolar type, with psychotic features, in partial remission. Rest unchanged. PLAN: We will gradually taper the Risperdal. She has no overt psychotic symptoms noted and valproic acid level is therapeutic and reassess depending on how she does. Especially given the history of CVA, Risperdal should be minimized. MAN Alex CLARK MD DR: CADY/aggie JOB#: [id number] / [id number]
--- NOTE | 2017-12-19 00:33 | PN ---
DATE: 12/17/2017 This late entry, date of visit 12/17/2017, covers elements not covered in my initial note of 12/17/2017. SUBJECTIVE: Per nursing report, the patient's mood has been better, but she gets agitated if she is not given what she wants, rambling in her speech, at times quiet. REVIEW OF SYSTEMS: Ambulation impaired with walker. No CV, , pulmonary, eye system symptoms on review. MENTAL STATUS EXAM: Oriented to herself and situation. Speech is low in volume, coherent, abstraction fair, computation impaired, language function intact, attention span short. Mood and affect, lability is improved. LABORATORY DATA: Reviewed. IMPRESSION: Schizoaffective disorder, bipolar type, mixed with psychotic features. Rest unchanged. PLAN: Continue to taper the Risperdal. Maintain Keppra, Celexa, Depakote, and BuSpar at current dosage. Valproic acid level therapeutic at 66. MOE CLARK MD DR: CADY/aggie JOB#: [id number] / [id number]
[2017-12-19 05:56] VITALS: BP 103/41
[2017-12-19] MEDS: LEVOTHYROXINE 75 MCG TABLET PO SCH (06:10)
[2017-12-19 08:04] VITALS: BP 112/59
[2017-12-19] MEDS: DIVALPROEX 125 MG CAP.SPRINK PO SCH ×2 (08:22→20:21)
[2017-12-19] MEDS: FUROSEMIDE 20 MG TABLET PO SCH (08:22)
[2017-12-19] MEDS: SPIRONOLACTONE 25 MG TABLET PO SCH (08:22)
[2017-12-19] MEDS: busPIRone 5 MG TABLET. PO SCH ×2 (08:22→13:19)
[2017-12-19] MEDS: risperiDONE 0.25 MG TABLET. PO SCH (08:22)
[2017-12-19] MEDS: CITALOPRAM 10 MG TABLET. PO SCH (08:23)
[2017-12-19] MEDS: LISINOPRIL 5 MG TABLET. PO SCH (08:23)
[2017-12-19] MEDS: metFORMIN 500 MG TABLET PO SCH ×2 (08:23→16:43)
[2017-12-19] MEDS: ASPIRIN ENTERIC COATED 81 MG TABLET.DR. PO SCH (08:23)
[2017-12-19] MEDS: CHOLECALCIFEROL (VITAMIN D3) 1,000 UNIT TABLET PO SCH (08:24)
[2017-12-19 09:44] LABS: BASO % 1 % (0-3); EOS # 0.3 x10^3/uL (0.0-0.7); EOS % 5 % (0-3); HEMATOCRIT 33.4 % (36.0-47.0); HEMOGLOBIN 11.3 g/dL (12.0-15.5); LYMPH # 1.4 x10^3/uL (1.0-4.8); LYMPH % 20 % (24-48); MEAN CORPUSCULAR HEMOGLOBIN 29 pg (25-35); MEAN CORPUSCULAR HGB CONC 34 g/dL (31-37); MEAN CORPUSCULAR VOLUME 86 fL (79-100); MONO # 0.6 x10^3/uL (0.0-1.1); MONO % 8 % (0-9); NEUT # 4.6 x10^3uL (1.8-7.7); NEUT % 67 % (31-73); PLATELET COUNT 218 x10^3/uL (140-400); RED BLOOD COUNT 3.87 x10^6/uL (3.50-5.40); RED CELL DISTRIBUTION WIDTH 13.2 % (11.5-14.5); WHITE BLOOD COUNT 6.9 x10^3/uL (4.0-11.0)
[2017-12-19 09:57] LABS: ALBUMIN 3.4 g/dL (3.4-5.0); ALBUMIN/GLOBULIN RATIO 0.7 (1.0-1.7); CALCIUM 9.4 mg/dL (8.5-10.1); CREATININE 0.8 mg/dL (0.6-1.0); GFR 90.1; MAGNESIUM 1.8 mg/dL (1.8-2.4); POTASSIUM 4.5 mmol/L (3.5-5.1); TOTAL BILIRUBIN 0.2 mg/dL (0.2-1.0); TOTAL PROTEIN 8.1 g/dL (6.4-8.2)
[2017-12-19 16:27] VITALS: BP 122/64
[2017-12-19] MEDS: MONTELUKAST 10 MG TABLET. PO SCH (20:19)
[2017-12-19] MEDS: SIMVASTATIN 10 MG TABLET PO SCH (20:19)
[2017-12-19] MEDS: MULTIVITAMIN with MINERAL TABLET. PO SCH (20:19)
[2017-12-19] MEDS: risperiDONE 1 MG TABLET. PO SCH (20:20)
[2017-12-19] MEDS: SENNOSIDES 8.6 MG TABLET PO SCH (20:20)
[2017-12-19] MEDS: ENOXAPARIN 40 MG/0.4 ML DISP.SYRIN. SQ SCH (20:26)
--- NOTE | 2017-12-19 22:23 | PDOC ---
Exam Note: Alexey Note: Please also refer to the separate dictated note~for this date of service dictated separately.~Patient seen individually. Discussed the patient with Nursing staff reviewed the chart.~Reviewed interim history and current functioning. Reviewed vital signs,~Labs/ Radiology~and current medications noted below. Continue current treatment with the changes noted in the dictated addendum note Assessment: Vital Signs: Vital Signs Date Time Temp Pulse Resp B/P (MAP) Pulse Ox O2 Delivery O2 Flow Rate FiO2 12/19/17 16:27 98.4 81 18 122/64 (83) 99 12/17/17 16:15 Room Air I&O Intake and Output 12/19/17 07:00 Intake Total 965 ml Output Total 300 ml Balance 665 ml Intake Oral 965 ml Output Urine Total 300 ml Labs: Laboratory Tests Test 12/19/17 09:29 White Blood Count 6.9 x10^3/uL (4.0-11.0) Red Blood Count 3.87 x10^6/uL (3.50-5.40) Hemoglobin 11.3 g/dL (12.0-15.5) L Hematocrit 33.4 % (36.0-47.0) L Mean Corpuscular Volume 86 fL (79-100) Mean Corpuscular Hemoglobin 29 pg (25-35) Mean Corpuscular Hemoglobin Concent 34 g/dL (31-37) Red Cell Distribution Width 13.2 % (11.5-14.5) Platelet Count 218 x10^3/uL (140-400) Neutrophils (%) (Auto) 67 % (31-73) Lymphocytes (%) (Auto) 20 % (24-48) L Monocytes (%) (Auto) 8 % (0-9) Eosinophils (%) (Auto) 5 % (0-3) H Basophils (%) (Auto) 1 % (0-3) Neutrophils # (Auto) 4.6 x10^3uL (1.8-7.7) Lymphocytes # (Auto) 1.4 x10^3/uL (1.0-4.8) Monocytes # (Auto) 0.6 x10^3/uL (0.0-1.1) Eosinophils # (Auto) 0.3 x10^3/uL (0.0-0.7) Basophils # (Auto) 0.0 x10^3/uL (0.0-0.2) Sodium Level 133 mmol/L (136-145) L Potassium Level 4.5 mmol/L (3.5-5.1) Chloride Level 96 mmol/L (98-107) L Carbon Dioxide Level 28 mmol/L (21-32) Anion Gap 9 (6-14) Blood Urea Nitrogen 21 mg/dL (7-20) H Creatinine 0.8 mg/dL (0.6-1.0) Estimated GFR (Cockcroft-Gault) 90.1 BUN/Creatinine Ratio 26 (6-20) H Glucose Level 98 mg/dL (70-99) Calcium Level 9.4 mg/dL (8.5-10.1) Magnesium Level 1.8 mg/dL (1.8-2.4) Total Bilirubin 0.2 mg/dL (0.2-1.0) Aspartate Amino Transferase (AST) 14 U/L (15-37) L Alanine Aminotransferase (ALT) 21 U/L (14-59) Alkaline Phosphatase 73 U/L (46-116) Total Protein 8.1 g/dL (6.4-8.2) Albumin 3.4 g/dL (3.4-5.0) Albumin/Globulin Ratio 0.7 (1.0-1.7) L Current Medications: Meds: Current Medications Acetaminophen (Tylenol) 650 mg PRN Q6HRS PRN PO PAIN / TEMP Last administered on 12/11/17at 13:45; Start 12/07/17 at 17:00 Multi-Ingredient Ointment (Analgesic [place]) 1 jevon PRN QID PRN TP MUSCLE PAIN Last administered on 12/19/17at 13:34; Start 12/07/17 at 17:00 Al Hydroxide/Mg Hydroxide (Mylanta Plus Xs) 15 ml PRN AFTMEALHC PRN PO DYSPEPSIA; Start 12/07/17 at 17:00 Magnesium Hydroxide (Milk Of Magnesia) 2,400 mg PRN QHS PRN PO CONSTIPATION; Start 12/07/17 at 17:00 Aspirin (Aspirin Enteric Coated) 81 mg DAILY PO Last administered on 12/19/17at 08:23; Start 12/08/17 at 09:00 Furosemide (Lasix) 40 mg DAILY PO Last administered on 12/16/17at 08:00; Start at 09:00; Stop 12/16/17 at 14:00; Status DC Levetiracetam (Keppra) 800 mg BID PO Last administered on 12/19/17at 20:24; Start 12/07/17 at 21:00 Levothyroxine Sodium (Synthroid) 75 mcg DAILYAC PO Last administered on 07:43; Start 12/08/17 at 07:30; Stop 12/09/17 at 07:46; Status DC Lisinopril (Prinivil) 10 mg DAILY PO Last administered on 12/16/17 08:01; Start 12/08/17 at 09:00; Stop 12/16/17 at 14:00; Status DC Metformin HCl (Glucophage) 500 mg BIDWMEALS PO Last administered on 12/19/17 16:43; Start 12/08/17 at 08:00 Montelukast Sodium (Singulair) 10 mg HS PO Last administered on 12/19/17 20:19 ; Start 12/07/17 at 21:00 Risperidone (RisperDAL) 0.25 mg BID PO Last administered on 12/15/17 08:01; Start 12/07/17 at 21:00; Stop 12/15/17 at 11:52; Status DC Sennosides (Senna) 8.6 mg HS PO Last administered on 12/19/17 20:20; Start at 21:00 Simvastatin (Zocor) 10 mg DAILYWSUP PO Last administered on 12/09/17 17:02; Start 12/08/17 at 17:00; Stop 12/10/17 at 16:11; Status DC Citalopram Hydrobromide (CeleXA) 20 mg DAILY PO Last administered on 12/08/17at 08:30; Start 12/08/17 at 09:00; Stop 12/08/17 at 18:24; Status DC Multivitamins/ Calcium (Thera-M Plus) 1 tab QHS PO Last administered on 20:19; Start 12/07/17 at 21:00 Spironolactone (Aldactone) 50 mg BID@0900,1500 PO Last administered on at 08:01; Start 12/08/17 at 09:00; Stop 12/16/17 at 14:00; Status DC Citalopram Hydrobromide (CeleXA) 10 mg DAILY PO Last administered on 12/19/17 08:23; Start 12/09/17 at 09:00 Risperidone (RisperDAL) 3 mg HS PO Last administered on 12/17/17 19:33; Start 12/08/17 at 21:00; Stop 12/17/17 at 21:00; Status DC Divalproex Sodium (Depakote Sprinkles) 250 mg DAILY PO Last administered on 12/12 08:09; Start 12/09/17 at 09:00; Stop 12/12/17 at 18:41; Status DC Divalproex Sodium (Depakote Sprinkles) 500 mg HS PO Last administered on 20:26; Start 12/08/17 at 21:00; Stop 12/12/17 at 18:41; Status DC Levothyroxine Sodium (Synthroid) 75 mcg DAILY06 PO Last administered on 06:10; Start 12/10/17 at 06:00 Enoxaparin Sodium (Lovenox) 40 mg Q24H SQ Last administered on 12/19/17 20:26 ; Start 12/09/17 at 22:00 Simvastatin (Zocor) 10 mg HS PO Last administered on 12/19/17 20:19; Start 12/10/17 at 21:00 Vitamin D (Vitamin D3) 2,000 unit DAILYBFRSUP PO Last administered on 08:24; Start 12/11/17 at 17:00 Divalproex Sodium (Depakote Sprinkles) 500 mg BID PO Last administered on 20:21; Start 12/12/17 at 21:00 Buspirone HCl (Buspar) 5 mg BID92 PO Last administered on 12/19/17 13:19; Start 12/14/17 at 09:00 Risperidone (RisperDAL) 0.25 mg DAILY PO Last administered on 12/19/17 08:22; Start 12/16/17 at 09:00 Risperidone (RisperDAL) 2.75 mg HS PO Last administered on 2/12/18at 20:20; Start 12/18/17 at 21:00; Stop 12/20/17 at 20:59 Risperidone (RisperDAL) 2.5 mg QHS PO ; Start 12/21/17 at 21:00; Stop 12/23/17 at 20:59 Risperidone (RisperDAL) 2.25 mg QHS PO ; Start 12/24/17 at 21:00; Stop 12/26/17 at 20:59 Risperidone (RisperDAL) 2 mg HS PO ; Start 12/27/17 at 21:00; Stop 12/29/17 at 20:59 Risperidone (RisperDAL) 1.75 mg HS PO ; Start 12/30/17 at 21:00 Furosemide (Lasix) 20 mg DAILY PO Last administered on 12/19/17at 08:22; Start 12/17/17 at 09:00 Lisinopril (Prinivil) 5 mg DAILY PO ; Start 12/17/17 at 09:00 Spironolactone (Aldactone) 50 mg DAILY08 PO Last administered on 12/19/17at 08: 22; Start 12/17/17 at 08:00 Active Scripts Active Reported Levetiracetam 100 Mg/1 Ml Solution 8 Ml PO BID Spironolactone 50 Mg Tablet 50 Mg PO BID@0900,1500 Risperidone 0.5 Mg Tablet 0.25 Mg PO BID Escitalopram Oxalate 10 Mg Tablet 10 Mg PO QHS Senna (Sennosides) 8.6 Mg Tablet 8.6 Mg PO HS Multivitamins (Multivitamin) 1 Each Tablet 1 Tab PO QHS Metformin Hcl 500 Mg Tablet 500 Mg PO BIDWMEALS Montelukast Sodium Tablet (Montelukast Sodium) 10 Mg Tablet 10 Mg PO HS Levothyroxine Sodium 75 Mcg Tablet 75 Mcg PO DAILYAC Lasix (Furosemide) 40 Mg Tablet 40 Mg PO DAILY Lisinopril 10 Mg Tablet 10 Mg PO DAILY Aspirin Ec (Aspirin) 81 Mg Tablet.dr 81 Mg PO DAILY Simvastatin 10 Mg Tablet 10 Mg PO DAILYWSUP I have reviewed the current psychotropics carefully including drug interactions. Risk benefit ratio favors no change other than as noted in my dictated progress note. Diagnosis: Problems: (1) Confusion state (2) Dementia (3) DISORGANIZED SCHIZOPHRENIA (4) Schizophrenia, disorganized, subchronic with acute exacerbation (5) Mood disorder as late effect of cerebrovascular accident (CVA) EDUARDO,MAN M MD Dec 19, 2017 22:23
--- NOTE | 2017-12-20 05:04 | PN ---
DATE: 12/18/2017 This is a late entry 12/18/2017 covers elements not covered in my initial note of 12/18/2017. I met with the patient in the evening of 12/18/2017. Overall, the patient had a good day, remains somewhat withdrawn, speaks in whispers, but no aggression. REVIEW OF SYSTEMS: Ambulation impaired. No CV, , pulmonary, eye system symptoms on review. Reliability varies. MENTAL STATUS EXAM: Oriented to herself and situation. Speech coherent. As noted above, low in volume, rapid this spring. Abstraction fair, computation impaired, language function intact. Mood and affect, improved lability. LABORATORY DATA: Reviewed. IMPRESSION: Schizoaffective disorder, bipolar type, mixed with psychotic features. PLAN: Gradually reduce the Risperdal. Continue rest of the psychotropics including Depakote level is therapeutic at 66. MAN Alex CLARK MD DR: CADY/aggie JOB#: [id number] / [id number]
[2017-12-20] MEDS: LEVOTHYROXINE 75 MCG TABLET PO SCH (06:19)
[2017-12-20 06:20] VITALS: BP 98/61
[2017-12-20 07:46] VITALS: BP 111/55
[2017-12-20] MEDS: busPIRone 5 MG TABLET. PO SCH ×2 (08:35→13:30)
[2017-12-20] MEDS: DIVALPROEX 125 MG CAP.SPRINK PO SCH ×2 (08:35→19:39)
[2017-12-20] MEDS: CITALOPRAM 10 MG TABLET. PO SCH (08:35)
[2017-12-20] MEDS: risperiDONE 0.25 MG TABLET. PO SCH (08:35)
[2017-12-20] MEDS: ASPIRIN ENTERIC COATED 81 MG TABLET.DR. PO SCH (08:35)
[2017-12-20] MEDS: SPIRONOLACTONE 25 MG TABLET PO SCH (08:35)
[2017-12-20] MEDS: metFORMIN 500 MG TABLET PO SCH ×2 (08:35→16:54)
[2017-12-20] MEDS: LISINOPRIL 5 MG TABLET. PO SCH (08:36)
[2017-12-20] MEDS: FUROSEMIDE 20 MG TABLET PO SCH (08:36)
[2017-12-20 15:58] VITALS: BP 107/68
[2017-12-20] MEDS: CHOLECALCIFEROL (VITAMIN D3) 1,000 UNIT TABLET PO SCH (16:54)
[2017-12-20] MEDS: SENNOSIDES 8.6 MG TABLET PO SCH (19:39)
[2017-12-20] MEDS: SIMVASTATIN 10 MG TABLET PO SCH (19:39)
[2017-12-20] MEDS: MONTELUKAST 10 MG TABLET. PO SCH (19:40)
[2017-12-20] MEDS: risperiDONE 1 MG TABLET. PO SCH (19:40)
[2017-12-20] MEDS: MULTIVITAMIN with MINERAL TABLET. PO SCH (19:40)
--- NOTE | 2017-12-20 20:00 | PDOC ---
Exam Note: Alexey Note: Please also refer to the separate dictated note~for this date of service dictated separately.~Patient seen individually. Discussed the patient with Nursing staff reviewed the chart.~Reviewed interim history and current functioning. Reviewed vital signs,~Labs/ Radiology~and current medications noted below. Continue current treatment with the changes noted in the dictated addendum note Assessment: Vital Signs: Vital Signs Date Time Temp Pulse Resp B/P (MAP) Pulse Ox O2 Delivery O2 Flow Rate FiO2 12/20/17 15:58 99.0 86 18 107/68 (81) 96 12/17/17 16:15 Room Air I&O Intake and Output 12/20/17 07:00 Intake Total 1320 ml Balance 1320 ml Intake Oral 1320 ml # Bowel Movements 1 Current Medications: Meds: Current Medications Acetaminophen (Tylenol) 650 mg PRN Q6HRS PRN PO PAIN / TEMP Last administered on 12/11/17at 13:45; Start 12/07/17 at 17:00 Multi-Ingredient Ointment (Analgesic [place]) 1 jevon PRN QID PRN TP MUSCLE PAIN Last administered on 12/19/17at 13:34; Start 12/07/17 at 17:00 Al Hydroxide/Mg Hydroxide (Mylanta Plus Xs) 15 ml PRN AFTMEALHC PRN PO DYSPEPSIA; Start 12/07/17 at 17:00 Magnesium Hydroxide (Milk Of Magnesia) 2,400 mg PRN QHS PRN PO CONSTIPATION; Start 12/07/17 at 17:00 Aspirin (Aspirin Enteric Coated) 81 mg DAILY PO Last administered on 12/20/17at 08:35; Start 12/08/17 at 09:00 Furosemide (Lasix) 40 mg DAILY PO Last administered on 12/16/17at 08:00; Start at 09:00; Stop 12/16/17 at 14:00; Status DC Levetiracetam (Keppra) 800 mg BID PO Last administered on 12/20/17at 19:41; Start 12/07/17 at 21:00 Levothyroxine Sodium (Synthroid) 75 mcg DAILYAC PO Last administered on at 07:43; Start 12/08/17 at 07:30; Stop 12/09/17 at 07:46; Status DC Lisinopril (Prinivil) 10 mg DAILY PO Last administered on 12/16/17 08:01; Start 12/08/17 at 09:00; Stop 12/16/17 at 14:00; Status DC Metformin HCl (Glucophage) 500 mg BIDWMEALS PO Last administered on 12/20/17 16:54; Start 12/08/17 at 08:00 Montelukast Sodium (Singulair) 10 mg HS PO Last administered on 12/20/17 19:40 ; Start 12/07/17 at 21:00 Risperidone (RisperDAL) 0.25 mg BID PO Last administered on 12/15/17 08:01; Start 12/07/17 at 21:00; Stop 12/15/17 at 11:52; Status DC Sennosides (Senna) 8.6 mg HS PO Last administered on 12/20/17 19:39; Start at 21:00 Simvastatin (Zocor) 10 mg DAILYWSUP PO Last administered on 12/09/17 17:02; Start 12/08/17 at 17:00; Stop 12/10/17 at 16:11; Status DC Citalopram Hydrobromide (CeleXA) 20 mg DAILY PO Last administered on 12/08/17 08:30; Start 12/08/17 at 09:00; Stop 12/08/17 at 18:24; Status DC Multivitamins/ Calcium (Thera-M Plus) 1 tab QHS PO Last administered on 19:40; Start 12/07/17 at 21:00 Spironolactone (Aldactone) 50 mg BID@0900,1500 PO Last administered on 08:01; Start 12/08/17 at 09:00; Stop 12/16/17 at 14:00; Status DC Citalopram Hydrobromide (CeleXA) 10 mg DAILY PO Last administered on 12/20/17 08:35; Start 12/09/17 at 09:00 Risperidone (RisperDAL) 3 mg HS PO Last administered on 12/17/17 19:33; Start 12/08/17 at 21:00; Stop 12/17/17 at 21:00; Status DC Divalproex Sodium (Depakote Sprinkles) 250 mg DAILY PO Last administered on 12/12 08:09; Start 12/09/17 at 09:00; Stop 12/12/17 at 18:41; Status DC Divalproex Sodium (Depakote Sprinkles) 500 mg HS PO Last administered on 20:26; Start 12/08/17 at 21:00; Stop 12/12/17 at 18:41; Status DC Levothyroxine Sodium (Synthroid) 75 mcg DAILY06 PO Last administered on 06:19; Start 12/10/17 at 06:00 Enoxaparin Sodium (Lovenox) 40 mg Q24H SQ Last administered on 12/19/17 20:26 ; Start 12/09/17 at 22:00 Simvastatin (Zocor) 10 mg HS PO Last administered on 12/20/17 19:39; Start 12/10/17 at 21:00 Vitamin D (Vitamin D3) 2,000 unit DAILYBFRSUP PO Last administered on 16:54; Start 12/11/17 at 17:00 Divalproex Sodium (Depakote Sprinkles) 500 mg BID PO Last administered on 19:39; Start 12/12/17 at 21:00 Buspirone HCl (Buspar) 5 mg BID92 PO Last administered on 12/20/17 13:30; Start 12/14/17 at 09:00 Risperidone (RisperDAL) 0.25 mg DAILY PO Last administered on 12/20/17 08:35; Start 12/16/17 at 09:00 Risperidone (RisperDAL) 2.75 mg HS PO Last administered on 12/20/17 19:40; Start 12/18/17 at 21:00; Stop 12/20/17 at 20:59 Risperidone (RisperDAL) 2.5 mg QHS PO ; Start 12/21/17 at 21:00; Stop 12/23/17 at 20:59 Risperidone (RisperDAL) 2.25 mg QHS PO ; Start 12/24/17 at 21:00; Stop 12/26/17 at 20:59 Risperidone (RisperDAL) 2 mg HS PO ; Start 12/27/17 at 21:00; Stop 12/29/17 at 20:59 Risperidone (RisperDAL) 1.75 mg HS PO ; Start 12/30/17 at 21:00 Furosemide (Lasix) 20 mg DAILY PO Last administered on 12/20/17at 08:36; Start 12/17/17 at 09:00 Lisinopril (Prinivil) 5 mg DAILY PO Last administered on 12/20/17at 08:36; Start 12/17/17 at 09:00 Spironolactone (Aldactone) 50 mg DAILY08 PO Last administered on 12/20/17at 08: 35; Start 12/17/17 at 08:00 Active Scripts Active Reported Levetiracetam 100 Mg/1 Ml Solution 8 Ml PO BID Spironolactone 50 Mg Tablet 50 Mg PO BID@0900,1500 Risperidone 0.5 Mg Tablet 0.25 Mg PO BID Escitalopram Oxalate 10 Mg Tablet 10 Mg PO QHS Senna (Sennosides) 8.6 Mg Tablet 8.6 Mg PO HS Multivitamins (Multivitamin) 1 Each Tablet 1 Tab PO QHS Metformin Hcl 500 Mg Tablet 500 Mg PO BIDWMEALS Montelukast Sodium Tablet (Montelukast Sodium) 10 Mg Tablet 10 Mg PO HS Levothyroxine Sodium 75 Mcg Tablet 75 Mcg PO DAILYAC Lasix (Furosemide) 40 Mg Tablet 40 Mg PO DAILY Lisinopril 10 Mg Tablet 10 Mg PO DAILY Aspirin Ec (Aspirin) 81 Mg Tablet. 81 Mg PO DAILY Simvastatin 10 Mg Tablet 10 Mg PO DAILYWSUP I have reviewed the current psychotropics carefully including drug interactions. Risk benefit ratio favors no change other than as noted in my dictated progress note. Diagnosis: Problems: (1) Confusion state (2) Dementia (3) DISORGANIZED SCHIZOPHRENIA (4) Schizophrenia, disorganized, subchronic with acute exacerbation (5) Mood disorder as late effect of cerebrovascular accident (CVA) MOE CLARK MD Dec 20, 2017 20:00
[2017-12-20] MEDS: ENOXAPARIN 40 MG/0.4 ML DISP.SYRIN. SQ SCH (20:48)
--- NOTE | 2017-12-20 22:41 | PN ---
DATE: 12/19/2017 This is a late entry, 12/19/2017, covers the elements not covered in my initial note of 12/19/2017. SUBJECTIVE: I met with the patient in the evening of 12/19/2017. The patient slept 7 hours previous evening, had a good day, took morning meds crushed and had some drooling, but nursing staff have noted this is not any different from before. REVIEW OF SYSTEMS: Ambulation impaired. No CV, , pulmonary, eye system symptoms on review. MENTAL STATUS EXAM: Oriented to herself, at times, situation. Speech, low in volume, coherent, difficult to understand at other times, smiling, somewhat paranoid, suspicious, difficult to understand and train of thoughts at times. No active suicidal or homicidal ideation. LABORATORY DATA: Reviewed. IMPRESSION: Schizoaffective disorder, bipolar type, mixed with psychotic features. PLAN: Risperdal is being tapered. Continue Keppra, Celexa, and Depakote. Valproic acid level therapeutic at 66. Maintain BuSpar, may need to increase this. MAN Alex CLARK MD DR: CADY/aggie JOB#: [id number] / [id number]
[2017-12-21] MEDS: LEVOTHYROXINE 75 MCG TABLET PO SCH (06:04)
[2017-12-21 06:20] VITALS: BP 124/58
[2017-12-21] MEDS: CITALOPRAM 10 MG TABLET. PO SCH (08:59)
[2017-12-21] MEDS: LISINOPRIL 5 MG TABLET. PO SCH (08:59)
[2017-12-21] MEDS: SPIRONOLACTONE 25 MG TABLET PO SCH (08:59)
[2017-12-21] MEDS: busPIRone 5 MG TABLET. PO SCH ×2 (08:59→13:55)
[2017-12-21] MEDS: ASPIRIN ENTERIC COATED 81 MG TABLET.DR. PO SCH (09:00)
[2017-12-21] MEDS: FUROSEMIDE 20 MG TABLET PO SCH (09:00)
[2017-12-21] MEDS: metFORMIN 500 MG TABLET PO SCH ×2 (09:00→17:34)
[2017-12-21] MEDS: risperiDONE 0.25 MG TABLET. PO SCH (09:00)
[2017-12-21] MEDS: DIVALPROEX 125 MG CAP.SPRINK PO SCH ×2 (09:00→19:15)
--- NOTE | 2017-12-21 13:13 | OP ---
DATE OF SURGERY: 12/20/2017 PSYCHIATRIC PROGRESS NOTE This is a late entry 12/20/2017, covers elements not covered in my initial note of 12/20/2017. SUBJECTIVE: I met with the patient the evening of 12/20/2017. The patient slept 6-1/2 hours previous evening, did well previous night and more compliant, less labile during the day on 12/20/2017. REVIEW OF SYSTEMS: Ambulation impaired, with walker. No CV, , pulmonary, eye system symptoms on review, still had some drooling. MENTAL STATUS EXAM: Oriented to herself, situation. Speech, low in volume, somewhat whispering at times, slightly suspicious, but smiling, pleasant as I met with her. Insight fair. Judgment marginal, language function intact, attention span short. Memory is impaired. LABORATORY DATA: Reviewed. IMPRESSION: Schizoaffective disorder, bipolar type, cognitive disorder, unspecified versus major neurocognitive disorder, early vascular with delusions. PLAN: Valproic acid level is therapeutic at 66. Continue Depakote 500 b.i.d., taper the Risperdal. Continue Keppra, Celexa, and BuSpar. The latter may need to be increased for anxiety symptoms. MOE CLARK MD DR: CADY/aggie JOB#: [id number] / [id number]
[2017-12-21 16:43] VITALS: BP 99/57
[2017-12-21] MEDS: CHOLECALCIFEROL (VITAMIN D3) 1,000 UNIT TABLET PO SCH (17:34)
--- NOTE | 2017-12-21 19:04 | PDOC ---
Exam Note: Alexey Note: Please also refer to the separate dictated note~for this date of service dictated separately.~Patient seen individually. Discussed the patient with Nursing staff reviewed the chart.~Reviewed interim history and current functioning. Reviewed vital signs,~Labs/ Radiology~and current medications noted below. Continue current treatment with the changes noted in the dictated addendum note Assessment: Vital Signs: Vital Signs Date Time Temp Pulse Resp B/P (MAP) Pulse Ox O2 Delivery O2 Flow Rate FiO2 12/21/17 16:43 97.1 82 16 99/57 (71) 96 12/21/17 06:20 Room Air I&O Intake and Output 12/21/17 07:00 Intake Total 1560 ml Balance 1560 ml Intake Oral 1560 ml Current Medications: Meds: Current Medications Acetaminophen (Tylenol) 650 mg PRN Q6HRS PRN PO PAIN / TEMP Last administered on 12/11/17at 13:45; Start 12/07/17 at 17:00 Multi-Ingredient Ointment (Analgesic [place]) 1 jevon PRN QID PRN TP MUSCLE PAIN Last administered on 12/19/17at 13:34; Start 12/07/17 at 17:00 Al Hydroxide/Mg Hydroxide (Mylanta Plus Xs) 15 ml PRN AFTMEALHC PRN PO DYSPEPSIA; Start 12/07/17 at 17:00 Magnesium Hydroxide (Milk Of Magnesia) 2,400 mg PRN QHS PRN PO CONSTIPATION; Start 12/07/17 at 17:00 Aspirin (Aspirin Enteric Coated) 81 mg DAILY PO Last administered on 12/21/17at 09:00; Start 12/08/17 at 09:00 Furosemide (Lasix) 40 mg DAILY PO Last administered on 12/16/17at 08:00; Start at 09:00; Stop 12/16/17 at 14:00; Status DC Levetiracetam (Keppra) 800 mg BID PO Last administered on 12/21/17at 09:05; Start 12/07/17 at 21:00 Levothyroxine Sodium (Synthroid) 75 mcg DAILYAC PO Last administered on at 07:43; Start 12/08/17 at 07:30; Stop 12/09/17 at 07:46; Status DC Lisinopril (Prinivil) 10 mg DAILY PO Last administered on 12/16/17 08:01; Start 12/08/17 at 09:00; Stop 12/16/17 at 14:00; Status DC Metformin HCl (Glucophage) 500 mg BIDWMEALS PO Last administered on 12/21/17at 17:34; Start 12/08/17 at 08:00 Montelukast Sodium (Singulair) 10 mg HS PO Last administered on 12/20/17 19:40 ; Start 12/07/17 at 21:00 Risperidone (RisperDAL) 0.25 mg BID PO Last administered on 12/15/17 08:01; Start 12/07/17 at 21:00; Stop 12/15/17 at 11:52; Status DC Sennosides (Senna) 8.6 mg HS PO Last administered on 12/20/17 19:39; Start at 21:00 Simvastatin (Zocor) 10 mg DAILYWSUP PO Last administered on 12/09/17 17:02; Start 12/08/17 at 17:00; Stop 12/10/17 at 16:11; Status DC Citalopram Hydrobromide (CeleXA) 20 mg DAILY PO Last administered on 12/08/17 08:30; Start 12/08/17 at 09:00; Stop 12/08/17 at 18:24; Status DC Multivitamins/ Calcium (Thera-M Plus) 1 tab QHS PO Last administered on 19:40; Start 12/07/17 at 21:00 Spironolactone (Aldactone) 50 mg BID@0900,1500 PO Last administered on at 08:01; Start 12/08/17 at 09:00; Stop 12/16/17 at 14:00; Status DC Citalopram Hydrobromide (CeleXA) 10 mg DAILY PO Last administered on 12/21/17at 08:59; Start 12/09/17 at 09:00 Risperidone (RisperDAL) 3 mg HS PO Last administered on 12/17/17at 19:33; Start 12/08/17 at 21:00; Stop 12/17/17 at 21:00; Status DC Divalproex Sodium (Depakote Sprinkles) 250 mg DAILY PO Last administered on 12/12 08:09; Start 12/09/17 at 09:00; Stop 12/12/17 at 18:41; Status DC Divalproex Sodium (Depakote Sprinkles) 500 mg HS PO Last administered on 20:26; Start 12/08/17 at 21:00; Stop 12/12/17 at 18:41; Status DC Levothyroxine Sodium (Synthroid) 75 mcg DAILY06 PO Last administered on 06:04; Start 12/10/17 at 06:00 Enoxaparin Sodium (Lovenox) 40 mg Q24H SQ Last administered on 12/20/17 20:48 ; Start 12/09/17 at 22:00 Simvastatin (Zocor) 10 mg HS PO Last administered on 12/20/17 19:39; Start 12/10/17 at 21:00 Vitamin D (Vitamin D3) 2,000 unit DAILYBFRSUP PO Last administered on at 17:34; Start 12/11/17 at 17:00 Divalproex Sodium (Depakote Sprinkles) 500 mg BID PO Last administered on 09:00; Start 12/12/17 at 21:00 Buspirone HCl (Buspar) 5 mg BID92 PO Last administered on 12/21/17at 13:55; Start 12/14/17 at 09:00 Risperidone (RisperDAL) 0.25 mg DAILY PO Last administered on 12/21/17 09:00; Start 12/16/17 at 09:00 Risperidone (RisperDAL) 2.75 mg HS PO Last administered on 12/20/17at 19:40; Start 12/18/17 at 21:00; Stop 12/20/17 at 20:59; Status DC Risperidone (RisperDAL) 2.5 mg QHS PO ; Start 12/21/17 at 21:00; Stop 12/23/17 at 20:59 Risperidone (RisperDAL) 2.25 mg QHS PO ; Start 12/24/17 at 21:00; Stop 12/26/17 at 20:59 Risperidone (RisperDAL) 2 mg HS PO ; Start 12/27/17 at 21:00; Stop 12/29/17 at 20:59 Risperidone (RisperDAL) 1.75 mg HS PO ; Start 12/30/17 at 21:00 Furosemide (Lasix) 20 mg DAILY PO Last administered on 12/21/17at 09:00; Start 12/17/17 at 09:00 Lisinopril (Prinivil) 5 mg DAILY PO Last administered on 12/21/17at 08:59; Start 12/17/17 at 09:00 Spironolactone (Aldactone) 50 mg DAILY08 PO Last administered on 12/21/17at 08: 59; Start 12/17/17 at 08:00 Active Scripts Active Reported Levetiracetam 100 Mg/1 Ml Solution 8 Ml PO BID Spironolactone 50 Mg Tablet 50 Mg PO BID@0900,1500 Risperidone 0.5 Mg Tablet 0.25 Mg PO BID Escitalopram Oxalate 10 Mg Tablet 10 Mg PO QHS Senna (Sennosides) 8.6 Mg Tablet 8.6 Mg PO HS Multivitamins (Multivitamin) 1 Each Tablet 1 Tab PO QHS Metformin Hcl 500 Mg Tablet 500 Mg PO BIDWMEALS Montelukast Sodium Tablet (Montelukast Sodium) 10 Mg Tablet 10 Mg PO HS Levothyroxine Sodium 75 Mcg Tablet 75 Mcg PO DAILYAC Lasix (Furosemide) 40 Mg Tablet 40 Mg PO DAILY Lisinopril 10 Mg Tablet 10 Mg PO DAILY Aspirin Ec (Aspirin) 81 Mg Tablet. 81 Mg PO DAILY Simvastatin 10 Mg Tablet 10 Mg PO DAILYWSUP I have reviewed the current psychotropics carefully including drug interactions. Risk benefit ratio favors no change other than as noted in my dictated progress note. 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
[2017-12-21] MEDS: MONTELUKAST 10 MG TABLET. PO SCH (19:15)
[2017-12-21] MEDS: MULTIVITAMIN with MINERAL TABLET. PO SCH (19:15)
[2017-12-21] MEDS: SENNOSIDES 8.6 MG TABLET PO SCH (19:15)
[2017-12-21] MEDS: SIMVASTATIN 10 MG TABLET PO SCH (19:15)
[2017-12-21] MEDS: risperiDONE 1 MG TABLET. PO SCH (19:43)
[2017-12-21] MEDS: ENOXAPARIN 40 MG/0.4 ML DISP.SYRIN. SQ SCH (19:44)
[2017-12-22] MEDS: LEVOTHYROXINE 75 MCG TABLET PO SCH (05:54)
[2017-12-22 06:00] VITALS: BP 91/47
[2017-12-22] MEDS: SPIRONOLACTONE 25 MG TABLET PO SCH (08:00)
[2017-12-22] MEDS: LISINOPRIL 5 MG TABLET. PO SCH (09:00)
[2017-12-22] MEDS: FUROSEMIDE 20 MG TABLET PO SCH (09:00)
[2017-12-22 09:55] VITALS: BP 98/62
[2017-12-22] MEDS: busPIRone 5 MG TABLET. PO SCH ×2 (09:56→14:31)
[2017-12-22] MEDS: CITALOPRAM 10 MG TABLET. PO SCH (09:56)
[2017-12-22] MEDS: risperiDONE 0.25 MG TABLET. PO SCH (09:56)
[2017-12-22] MEDS: ASPIRIN ENTERIC COATED 81 MG TABLET.DR. PO SCH (09:57)
[2017-12-22] MEDS: DIVALPROEX 125 MG CAP.SPRINK PO SCH ×2 (09:57→19:51)
[2017-12-22] MEDS: metFORMIN 500 MG TABLET PO SCH ×2 (09:57→17:21)
[2017-12-22 15:35] VITALS: BP 112/45
[2017-12-22] MEDS: CHOLECALCIFEROL (VITAMIN D3) 1,000 UNIT TABLET PO SCH (17:21)
--- NOTE | 2017-12-22 19:30 | PDOC ---
Exam Note: Alexey Note: Please also refer to the separate dictated note~for this date of service dictated separately.~Patient seen individually. Discussed the patient with Nursing staff reviewed the chart.~Reviewed interim history and current functioning. Reviewed vital signs,~Labs/ Radiology~and current medications noted below. Continue current treatment with the changes noted in the dictated addendum note Assessment: Vital Signs: Vital Signs Date Time Temp Pulse Resp B/P (MAP) Pulse Ox O2 Delivery O2 Flow Rate FiO2 12/22/17 15:35 98.5 82 14 112/45 (67) 99 12/21/17 06:20 Room Air I&O Intake and Output 12/22/17 07:00 Intake Total 1550 ml Balance 1550 ml Intake Oral 1550 ml Current Medications: Meds: Current Medications Acetaminophen (Tylenol) 650 mg PRN Q6HRS PRN PO PAIN / TEMP Last administered on 12/11/17at 13:45; Start 12/07/17 at 17:00 Multi-Ingredient Ointment (Analgesic [place]) 1 jevon PRN QID PRN TP MUSCLE PAIN Last administered on 12/19/17at 13:34; Start 12/07/17 at 17:00 Al Hydroxide/Mg Hydroxide (Mylanta Plus Xs) 15 ml PRN AFTMEALHC PRN PO DYSPEPSIA; Start 12/07/17 at 17:00 Magnesium Hydroxide (Milk Of Magnesia) 2,400 mg PRN QHS PRN PO CONSTIPATION; Start 12/07/17 at 17:00 Aspirin (Aspirin Enteric Coated) 81 mg DAILY PO Last administered on 12/22/17at 09:57; Start 12/08/17 at 09:00 Furosemide (Lasix) 40 mg DAILY PO Last administered on 12/16/17at 08:00; Start at 09:00; Stop 12/16/17 at 14:00; Status DC Levetiracetam (Keppra) 800 mg BID PO Last administered on 12/22/17at 09:57; Start 12/07/17 at 21:00 Levothyroxine Sodium (Synthroid) 75 mcg DAILYAC PO Last administered on at 07:43; Start 12/08/17 at 07:30; Stop 12/09/17 at 07:46; Status DC Lisinopril (Prinivil) 10 mg DAILY PO Last administered on 12/16/17 08:01; Start 12/08/17 at 09:00; Stop 12/16/17 at 14:00; Status DC Metformin HCl (Glucophage) 500 mg BIDWMEALS PO Last administered on 12/22/17at 17:21; Start 12/08/17 at 08:00 Montelukast Sodium (Singulair) 10 mg HS PO Last administered on 12/21/17 19:15 ; Start 12/07/17 at 21:00 Risperidone (RisperDAL) 0.25 mg BID PO Last administered on 12/15/17 08:01; Start 12/07/17 at 21:00; Stop 12/15/17 at 11:52; Status DC Sennosides (Senna) 8.6 mg HS PO Last administered on 12/21/17 19:15; Start at 21:00 Simvastatin (Zocor) 10 mg DAILYWSUP PO Last administered on 12/09/17 17:02; Start 12/08/17 at 17:00; Stop 12/10/17 at 16:11; Status DC Citalopram Hydrobromide (CeleXA) 20 mg DAILY PO Last administered on 12/08/17 08:30; Start 12/08/17 at 09:00; Stop 12/08/17 at 18:24; Status DC Multivitamins/ Calcium (Thera-M Plus) 1 tab QHS PO Last administered on 19:15; Start 12/07/17 at 21:00 Spironolactone (Aldactone) 50 mg BID@0900,1500 PO Last administered on at 08:01; Start 12/08/17 at 09:00; Stop 12/16/17 at 14:00; Status DC Citalopram Hydrobromide (CeleXA) 10 mg DAILY PO Last administered on 12/22/17at 09:56; Start 12/09/17 at 09:00 Risperidone (RisperDAL) 3 mg HS PO Last administered on 12/17/17at 19:33; Start 12/08/17 at 21:00; Stop 12/17/17 at 21:00; Status DC Divalproex Sodium (Depakote Sprinkles) 250 mg DAILY PO Last administered on 12/12 08:09; Start 12/09/17 at 09:00; Stop 12/12/17 at 18:41; Status DC Divalproex Sodium (Depakote Sprinkles) 500 mg HS PO Last administered on 20:26; Start 12/08/17 at 21:00; Stop 12/12/17 at 18:41; Status DC Levothyroxine Sodium (Synthroid) 75 mcg DAILY06 PO Last administered on 05:54; Start 12/10/17 at 06:00 Enoxaparin Sodium (Lovenox) 40 mg Q24H SQ Last administered on 12/21/17 19:44 ; Start 12/09/17 at 22:00 Simvastatin (Zocor) 10 mg HS PO Last administered on 12/21/17 19:15; Start 12/10/17 at 21:00 Vitamin D (Vitamin D3) 2,000 unit DAILYBFRSUP PO Last administered on 17:21; Start 12/11/17 at 17:00 Divalproex Sodium (Depakote Sprinkles) 500 mg BID PO Last administered on 09:57; Start 12/12/17 at 21:00 Buspirone HCl (Buspar) 5 mg BID92 PO Last administered on 12/22/17 14:31; Start 12/14/17 at 09:00 Risperidone (RisperDAL) 0.25 mg DAILY PO Last administered on 12/22/17 09:56; Start 12/16/17 at 09:00 Risperidone (RisperDAL) 2.75 mg HS PO Last administered on 12/20/17 19:40; Start 12/18/17 at 21:00; Stop 12/20/17 at 20:59; Status DC Risperidone (RisperDAL) 2.5 mg QHS PO Last administered on 12/21/17 19:43; Start 12/21/17 at 21:00; Stop 12/23/17 at 20:59 Risperidone (RisperDAL) 2.25 mg QHS PO ; Start 12/24/17 at 21:00; Stop 12/26/17 at 20:59 Risperidone (RisperDAL) 2 mg HS PO ; Start 12/27/17 at 21:00; Stop 12/29/17 at 20:59 Risperidone (RisperDAL) 1.75 mg HS PO ; Start 12/30/17 at 21:00 Furosemide (Lasix) 20 mg DAILY PO Last administered on 12/21/17at 09:00; Start 12/17/17 at 09:00 Lisinopril (Prinivil) 5 mg DAILY PO Last administered on 12/21/17at 08:59; Start 12/17/17 at 09:00 Spironolactone (Aldactone) 50 mg DAILY08 PO Last administered on 12/21/17at 08: 59; Start 12/17/17 at 08:00 Active Scripts Active Reported Levetiracetam 100 Mg/1 Ml Solution 8 Ml PO BID Spironolactone 50 Mg Tablet 50 Mg PO BID@0900,1500 Risperidone 0.5 Mg Tablet 0.25 Mg PO BID Escitalopram Oxalate 10 Mg Tablet 10 Mg PO QHS Senna (Sennosides) 8.6 Mg Tablet 8.6 Mg PO HS Multivitamins (Multivitamin) 1 Each Tablet 1 Tab PO QHS Metformin Hcl 500 Mg Tablet 500 Mg PO BIDWMEALS Montelukast Sodium Tablet (Montelukast Sodium) 10 Mg Tablet 10 Mg PO HS Levothyroxine Sodium 75 Mcg Tablet 75 Mcg PO DAILYAC Lasix (Furosemide) 40 Mg Tablet 40 Mg PO DAILY Lisinopril 10 Mg Tablet 10 Mg PO DAILY Aspirin Ec (Aspirin) 81 Mg Tablet. 81 Mg PO DAILY Simvastatin 10 Mg Tablet 10 Mg PO DAILYWSUP I have reviewed the current psychotropics carefully including drug interactions. Risk benefit ratio favors no change other than as noted in my dictated progress note. Diagnosis: Problems: (1) Confusion state (2) Dementia (3) DISORGANIZED SCHIZOPHRENIA (4) Schizophrenia, disorganized, subchronic with acute exacerbation (5) Mood disorder as late effect of cerebrovascular accident (CVA) MOE CLARK MD Dec 22, 2017 19:30
[2017-12-22] MEDS: SENNOSIDES 8.6 MG TABLET PO SCH (19:52)
[2017-12-22] MEDS: risperiDONE 1 MG TABLET. PO SCH (19:52)
[2017-12-22] MEDS: MONTELUKAST 10 MG TABLET. PO SCH (19:53)
[2017-12-22] MEDS: MULTIVITAMIN with MINERAL TABLET. PO SCH (19:53)
[2017-12-22] MEDS: SIMVASTATIN 10 MG TABLET PO SCH (19:53)
[2017-12-22] MEDS: ENOXAPARIN 40 MG/0.4 ML DISP.SYRIN. SQ SCH (19:54)
[2017-12-23] MEDS: LEVOTHYROXINE 75 MCG TABLET PO SCH (05:47)
[2017-12-23 05:58] VITALS: BP 108/52
[2017-12-23] MEDS: ASPIRIN ENTERIC COATED 81 MG TABLET.DR. PO SCH (07:40)
[2017-12-23] MEDS: busPIRone 5 MG TABLET. PO SCH ×2 (07:41→12:44)
[2017-12-23] MEDS: FUROSEMIDE 20 MG TABLET PO SCH (07:41)
[2017-12-23] MEDS: risperiDONE 0.25 MG TABLET. PO SCH (07:41)
[2017-12-23] MEDS: metFORMIN 500 MG TABLET PO SCH ×2 (07:41→17:50)
[2017-12-23] MEDS: CITALOPRAM 10 MG TABLET. PO SCH (07:41)
[2017-12-23] MEDS: SPIRONOLACTONE 25 MG TABLET PO SCH (07:41)
[2017-12-23] MEDS: DIVALPROEX 125 MG CAP.SPRINK PO SCH ×2 (07:42→19:32)
[2017-12-23] MEDS: LISINOPRIL 5 MG TABLET. PO SCH (07:42)
[2017-12-23] MEDS: CHOLECALCIFEROL (VITAMIN D3) 1,000 UNIT TABLET PO SCH (07:44)
[2017-12-23 16:05] VITALS: BP 150/61
[2017-12-23] MEDS: MONTELUKAST 10 MG TABLET. PO SCH (19:32)
[2017-12-23] MEDS: MULTIVITAMIN with MINERAL TABLET. PO SCH (19:33)
[2017-12-23] MEDS: SIMVASTATIN 10 MG TABLET PO SCH (19:33)
[2017-12-23] MEDS: SENNOSIDES 8.6 MG TABLET PO SCH (19:33)
[2017-12-23] MEDS: ENOXAPARIN 40 MG/0.4 ML DISP.SYRIN. SQ SCH (19:34)
--- NOTE | 2017-12-23 19:40 | PDOC ---
Exam Note: Alexey Note: Please also refer to the separate dictated note~for this date of service dictated separately.~Patient seen individually. Discussed the patient with Nursing staff reviewed the chart.~Reviewed interim history and current functioning. Reviewed vital signs,~Labs/ Radiology~and current medications noted below. Continue current treatment with the changes noted in the dictated addendum note Assessment: Vital Signs: Vital Signs Date Time Temp Pulse Resp B/P (MAP) Pulse Ox O2 Delivery O2 Flow Rate FiO2 12/23/17 16:05 97.6 85 18 150/61 (90) 96 12/21/17 06:20 Room Air I&O Intake and Output 12/23/17 07:00 Intake Total 1560 ml Balance 1560 ml Intake Oral 1560 ml # Bowel Movements 1 Current Medications: Meds: Current Medications Acetaminophen (Tylenol) 650 mg PRN Q6HRS PRN PO PAIN / TEMP Last administered on 12/11/17at 13:45; Start 12/07/17 at 17:00 Multi-Ingredient Ointment (Analgesic [place]) 1 jevon PRN QID PRN TP MUSCLE PAIN Last administered on 12/19/17at 13:34; Start 12/07/17 at 17:00 Al Hydroxide/Mg Hydroxide (Mylanta Plus Xs) 15 ml PRN AFTMEALHC PRN PO DYSPEPSIA; Start 12/07/17 at 17:00 Magnesium Hydroxide (Milk Of Magnesia) 2,400 mg PRN QHS PRN PO CONSTIPATION; Start 12/07/17 at 17:00 Aspirin (Aspirin Enteric Coated) 81 mg DAILY PO Last administered on 12/23/17at 07:40; Start 12/08/17 at 09:00 Furosemide (Lasix) 40 mg DAILY PO Last administered on 12/16/17at 08:00; Start at 09:00; Stop 12/16/17 at 14:00; Status DC Levetiracetam (Keppra) 800 mg BID PO Last administered on 12/23/17at 19:33; Start 12/07/17 at 21:00 Levothyroxine Sodium (Synthroid) 75 mcg DAILYAC PO Last administered on at 07:43; Start 12/08/17 at 07:30; Stop 12/09/17 at 07:46; Status DC Lisinopril (Prinivil) 10 mg DAILY PO Last administered on 12/16/17 08:01; Start 12/08/17 at 09:00; Stop 12/16/17 at 14:00; Status DC Metformin HCl (Glucophage) 500 mg BIDWMEALS PO Last administered on 12/23/17at 17:50; Start 12/08/17 at 08:00 Montelukast Sodium (Singulair) 10 mg HS PO Last administered on 12/23/17 19:32 ; Start 12/07/17 at 21:00 Risperidone (RisperDAL) 0.25 mg BID PO Last administered on 12/15/17 08:01; Start 12/07/17 at 21:00; Stop 12/15/17 at 11:52; Status DC Sennosides (Senna) 8.6 mg HS PO Last administered on 12/23/17 19:33; Start at 21:00 Simvastatin (Zocor) 10 mg DAILYWSUP PO Last administered on 12/09/17 17:02; Start 12/08/17 at 17:00; Stop 12/10/17 at 16:11; Status DC Citalopram Hydrobromide (CeleXA) 20 mg DAILY PO Last administered on 12/08/17 08:30; Start 12/08/17 at 09:00; Stop 12/08/17 at 18:24; Status DC Multivitamins/ Calcium (Thera-M Plus) 1 tab QHS PO Last administered on 19:33; Start 12/07/17 at 21:00 Spironolactone (Aldactone) 50 mg BID@0900,1500 PO Last administered on 08:01; Start 12/08/17 at 09:00; Stop 12/16/17 at 14:00; Status DC Citalopram Hydrobromide (CeleXA) 10 mg DAILY PO Last administered on 12/23/17at 07:41; Start 12/09/17 at 09:00 Risperidone (RisperDAL) 3 mg HS PO Last administered on 12/17/17at 19:33; Start 12/08/17 at 21:00; Stop 12/17/17 at 21:00; Status DC Divalproex Sodium (Depakote Sprinkles) 250 mg DAILY PO Last administered on 12/12 08:09; Start 12/09/17 at 09:00; Stop 12/12/17 at 18:41; Status DC Divalproex Sodium (Depakote Sprinkles) 500 mg HS PO Last administered on 20:26; Start 12/08/17 at 21:00; Stop 12/12/17 at 18:41; Status DC Levothyroxine Sodium (Synthroid) 75 mcg DAILY06 PO Last administered on 05:47; Start 12/10/17 at 06:00 Enoxaparin Sodium (Lovenox) 40 mg Q24H SQ Last administered on 12/23/17 19:34 ; Start 12/09/17 at 22:00 Simvastatin (Zocor) 10 mg HS PO Last administered on 12/23/17 19:33; Start 12/10/17 at 21:00 Vitamin D (Vitamin D3) 2,000 unit DAILYBFRSUP PO Last administered on 07:44; Start 12/11/17 at 17:00 Divalproex Sodium (Depakote Sprinkles) 500 mg BID PO Last administered on 19:32; Start 12/12/17 at 21:00 Buspirone HCl (Buspar) 5 mg BID92 PO Last administered on 12/23/17 12:44; Start 12/14/17 at 09:00 Risperidone (RisperDAL) 0.25 mg DAILY PO Last administered on 12/23/17 07:41; Start 12/16/17 at 09:00 Risperidone (RisperDAL) 2.75 mg HS PO Last administered on 12/20/17 19:40; Start 12/18/17 at 21:00; Stop 12/20/17 at 20:59; Status DC Risperidone (RisperDAL) 2.5 mg QHS PO Last administered on 12/22/17 19:52; Start 12/21/17 at 21:00; Stop 12/23/17 at 20:59 Risperidone (RisperDAL) 2.25 mg QHS PO ; Start 12/24/17 at 21:00; Stop 12/26/17 at 20:59 Risperidone (RisperDAL) 2 mg HS PO ; Start 12/27/17 at 21:00; Stop 12/29/17 at 20:59 Risperidone (RisperDAL) 1.75 mg HS PO ; Start 12/30/17 at 21:00 Furosemide (Lasix) 20 mg DAILY PO Last administered on 12/23/17at 07:41; Start 12/17/17 at 09:00 Lisinopril (Prinivil) 5 mg DAILY PO Last administered on 12/21/17at 08:59; Start 12/17/17 at 09:00 Spironolactone (Aldactone) 50 mg DAILY08 PO Last administered on 12/23/17at 07: 41; Start 12/17/17 at 08:00 Active Scripts Active Reported Levetiracetam 100 Mg/1 Ml Solution 8 Ml PO BID Spironolactone 50 Mg Tablet 50 Mg PO BID@0900,1500 Risperidone 0.5 Mg Tablet 0.25 Mg PO BID Escitalopram Oxalate 10 Mg Tablet 10 Mg PO QHS Senna (Sennosides) 8.6 Mg Tablet 8.6 Mg PO HS Multivitamins (Multivitamin) 1 Each Tablet 1 Tab PO QHS Metformin Hcl 500 Mg Tablet 500 Mg PO BIDWMEALS Montelukast Sodium Tablet (Montelukast Sodium) 10 Mg Tablet 10 Mg PO HS Levothyroxine Sodium 75 Mcg Tablet 75 Mcg PO DAILYAC Lasix (Furosemide) 40 Mg Tablet 40 Mg PO DAILY Lisinopril 10 Mg Tablet 10 Mg PO DAILY Aspirin Ec (Aspirin) 81 Mg Tablet. 81 Mg PO DAILY Simvastatin 10 Mg Tablet 10 Mg PO DAILYWSUP I have reviewed the current psychotropics carefully including drug interactions. Risk benefit ratio favors no change other than as noted in my dictated progress note. Diagnosis: Problems: (1) Confusion state (2) Dementia (3) DISORGANIZED SCHIZOPHRENIA (4) Schizophrenia, disorganized, subchronic with acute exacerbation (5) Mood disorder as late effect of cerebrovascular accident (CVA) MOE CLARK MD Dec 23, 2017 19:40
[2017-12-24] MEDS: LEVOTHYROXINE 75 MCG TABLET PO SCH (06:19)
[2017-12-24 06:36] VITALS: BP 102/63
[2017-12-24] MEDS: FUROSEMIDE 20 MG TABLET PO SCH (07:53)
[2017-12-24] MEDS: busPIRone 5 MG TABLET. PO SCH ×2 (07:54→13:08)
[2017-12-24] MEDS: SPIRONOLACTONE 25 MG TABLET PO SCH (07:54)
[2017-12-24] MEDS: ASPIRIN ENTERIC COATED 81 MG TABLET.DR. PO SCH (07:54)
[2017-12-24] MEDS: CITALOPRAM 10 MG TABLET. PO SCH (07:54)
[2017-12-24] MEDS: DIVALPROEX 125 MG CAP.SPRINK PO SCH ×2 (07:54→20:12)
[2017-12-24] MEDS: risperiDONE 0.25 MG TABLET. PO SCH (07:54)
[2017-12-24] MEDS: metFORMIN 500 MG TABLET PO SCH ×2 (07:54→18:24)
--- NOTE | 2017-12-24 07:54 | PN ---
DATE: 12/21/2017 PSYCHIATRIC PROGRESS NOTE This is a late entry 12/21/2017 covers elements not covered in my initial note of 12/21/2017. Met with the patient in the evening of 12/21/2017. Overall, the patient's speech is little better, still somewhat anxious, disorganized. Slept 6 hours. REVIEW OF SYSTEMS: Ambulation impaired with walker. No CV, , pulmonary, eye system symptoms on review. MENTAL STATUS EXAM: Oriented to self, pleasant, difficult to understand. Abstraction fair, computation impaired, language function intact. Memory is impaired. No active suicidal or homicidal ideation. IMPRESSION: Schizoaffective disorder, bipolar type, mixed anxiety disorder, unspecified; cognitive disorder, unspecified. PLAN: Continue current psychotropics. Risperdal is being tapered. Depakote is being adjusted to reach a therapeutic level for her schizoaffective disorder. MAN Alex CLARK MD DR: CADY/aggie JOB#: [id number] / [id number]
[2017-12-24] MEDS: LISINOPRIL 5 MG TABLET. PO SCH (07:57)
[2017-12-24 08:21] LABS: BASO % 0 % (0-3); EOS # 0.4 x10^3/uL (0.0-0.7); EOS % 6 % (0-3); HEMATOCRIT 33.1 % (36.0-47.0); HEMOGLOBIN 11.2 g/dL (12.0-15.5); LYMPH # 1.7 x10^3/uL (1.0-4.8); LYMPH % 23 % (24-48); MEAN CORPUSCULAR HEMOGLOBIN 30 pg (25-35); MEAN CORPUSCULAR HGB CONC 34 g/dL (31-37); MEAN CORPUSCULAR VOLUME 87 fL (79-100); MONO # 0.7 x10^3/uL (0.0-1.1); MONO % 9 % (0-9); NEUT # 4.7 x10^3uL (1.8-7.7); NEUT % 63 % (31-73); PLATELET COUNT 237 x10^3/uL (140-400); RED CELL DISTRIBUTION WIDTH 13.2 % (11.5-14.5); WHITE BLOOD COUNT 7.5 x10^3/uL (4.0-11.0)
--- NOTE | 2017-12-24 08:29 | PN ---
DATE: 12/22/2017 This late entry 12/22/2017 covers elements not covered in my initial note 12/22/2017. Met with the patient evening of 12/22/2017. The patient was also staffed at a treatment team meeting with the entire team morning of 12/22/2017. Sleeping about 6-1/2 to 7 hours at night. Appetite 100%. Rambling in her speech, somewhat quiet, still paranoid, but calmer. REVIEW OF SYSTEMS: Ambulation impaired with walker. No CV, , pulmonary, eye system symptoms on review. MENTAL STATUS EXAM: Oriented to herself and situation. Speech moderate latency, low in volume, somewhat whispering at times. Abstraction fair, computation impaired, language function intact. He is somewhat paranoid. LABORATORY DATA: Reviewed. IMPRESSION: Schizoaffective disorder, bipolar type, mixed with psychotic features; cognitive disorder, unspecified. PLAN: Taper the Risperdal as we are doing, maintain, rest unchanged. Follow labs on the Depakote to ensure it is therapeutic. Continue Shruthi Guerrero BuSpar for now. MAN Alex CLARK MD DR: CADY/aggie JOB#: [id number] / [id number]
[2017-12-24 08:49] LABS: ALBUMIN 3.2 g/dL (3.4-5.0); ALBUMIN/GLOBULIN RATIO 0.7 (1.0-1.7); CALCIUM 9.4 mg/dL (8.5-10.1); CREATININE 0.7 mg/dL (0.6-1.0); GFR 105.1; POTASSIUM 4.8 mmol/L (3.5-5.1); TOTAL BILIRUBIN 0.1 mg/dL (0.2-1.0); TOTAL PROTEIN 7.8 g/dL (6.4-8.2)
[2017-12-24 10:00] LABS: VAL ACID 56 mcg/mL (50-100)
[2017-12-24 17:54] VITALS: BP 106/59
[2017-12-24] MEDS: CHOLECALCIFEROL (VITAMIN D3) 1,000 UNIT TABLET PO SCH (18:24)
[2017-12-24] MEDS: SENNOSIDES 8.6 MG TABLET PO SCH (20:12)
[2017-12-24] MEDS: SIMVASTATIN 10 MG TABLET PO SCH (20:12)
[2017-12-24] MEDS: MULTIVITAMIN with MINERAL TABLET. PO SCH (20:12)
[2017-12-24] MEDS: MONTELUKAST 10 MG TABLET. PO SCH (20:12)
[2017-12-24] MEDS: ENOXAPARIN 40 MG/0.4 ML DISP.SYRIN. SQ SCH (20:12)
[2017-12-24] MEDS: risperiDONE 1 MG TABLET. PO SCH (20:16)
--- NOTE | 2017-12-24 22:20 | PDOC ---
Exam Note: Alexey Note: Please also refer to the separate dictated note~for this date of service dictated separately.~Patient seen individually. Discussed the patient with Nursing staff reviewed the chart.~Reviewed interim history and current functioning. Reviewed vital signs,~Labs/ Radiology~and current medications noted below. Continue current treatment with the changes noted in the dictated addendum note Assessment: Vital Signs: Vital Signs Date Time Temp Pulse Resp B/P (MAP) Pulse Ox O2 Delivery O2 Flow Rate FiO2 12/24/17 17:54 97.8 69 20 106/59 (75) 99 12/21/17 06:20 Room Air I&O Intake and Output 12/24/17 07:00 Intake Total 840 ml Balance 840 ml Intake Oral 840 ml Labs: Laboratory Tests Test 12/24/17 07:48 White Blood Count 7.5 x10^3/uL (4.0-11.0) Red Blood Count 3.80 x10^6/uL (3.50-5.40) Hemoglobin 11.2 g/dL (12.0-15.5) L Hematocrit 33.1 % (36.0-47.0) L Mean Corpuscular Volume 87 fL (79-100) Mean Corpuscular Hemoglobin 30 pg (25-35) Mean Corpuscular Hemoglobin Concent 34 g/dL (31-37) Red Cell Distribution Width 13.2 % (11.5-14.5) Platelet Count 237 x10^3/uL (140-400) Neutrophils (%) (Auto) 63 % (31-73) Lymphocytes (%) (Auto) 23 % (24-48) L Monocytes (%) (Auto) 9 % (0-9) Eosinophils (%) (Auto) 6 % (0-3) H Basophils (%) (Auto) 0 % (0-3) Neutrophils # (Auto) 4.7 x10^3uL (1.8-7.7) Lymphocytes # (Auto) 1.7 x10^3/uL (1.0-4.8) Monocytes # (Auto) 0.7 x10^3/uL (0.0-1.1) Eosinophils # (Auto) 0.4 x10^3/uL (0.0-0.7) Basophils # (Auto) 0.0 x10^3/uL (0.0-0.2) Sodium Level 134 mmol/L (136-145) L Potassium Level 4.8 mmol/L (3.5-5.1) Chloride Level 98 mmol/L (98-107) Carbon Dioxide Level 27 mmol/L (21-32) Anion Gap 9 (6-14) Blood Urea Nitrogen 17 mg/dL (7-20) Creatinine 0.7 mg/dL (0.6-1.0) Estimated GFR (Cockcroft-Gault) 105.1 BUN/Creatinine Ratio 24 (6-20) H Glucose Level 92 mg/dL (70-99) Calcium Level 9.4 mg/dL (8.5-10.1) Total Bilirubin 0.1 mg/dL (0.2-1.0) L Aspartate Amino Transferase (AST) 14 U/L (15-37) L Alanine Aminotransferase (ALT) 18 U/L (14-59) Alkaline Phosphatase 62 U/L (46-116) Total Protein 7.8 g/dL (6.4-8.2) Albumin 3.2 g/dL (3.4-5.0) L Albumin/Globulin Ratio 0.7 (1.0-1.7) L Valproic Acid Level 56 mcg/mL (50-100) Valproic Acid Last Dose Date 12/23/17 Valproic Acid Last Dose Time 2100 Current Medications: Meds: Current Medications Acetaminophen (Tylenol) 650 mg PRN Q6HRS PRN PO PAIN / TEMP Last administered on 12/11/17at 13:45; Start 12/07/17 at 17:00 Multi-Ingredient Ointment (Analgesic [place]) 1 jevon PRN QID PRN TP MUSCLE PAIN Last administered on 12/19/17at 13:34; Start 12/07/17 at 17:00 Al Hydroxide/Mg Hydroxide (Mylanta Plus Xs) 15 ml PRN AFTMEALHC PRN PO DYSPEPSIA Last administered on 12/24/17at 09:31; Start 12/07/17 at 17:00 Magnesium Hydroxide (Milk Of Magnesia) 2,400 mg PRN QHS PRN PO CONSTIPATION; Start 12/07/17 at 17:00 Aspirin (Aspirin Enteric Coated) 81 mg DAILY PO Last administered on 12/24/17at 07:54; Start 12/08/17 at 09:00 Furosemide (Lasix) 40 mg DAILY PO Last administered on 12/16/17 08:00; Start at 09:00; Stop 12/16/17 at 14:00; Status DC Levetiracetam (Keppra) 800 mg BID PO Last administered on 12/24/17at 20:16; Start 12/07/17 at 21:00 Levothyroxine Sodium (Synthroid) 75 mcg DAILYAC PO Last administered on at 07:43; Start 12/08/17 at 07:30; Stop 12/09/17 at 07:46; Status DC Lisinopril (Prinivil) 10 mg DAILY PO Last administered on 12/16/17at 08:01; Start 12/08/17 at 09:00; Stop 12/16/17 at 14:00; Status DC Metformin HCl (Glucophage) 500 mg BIDWMEALS PO Last administered on 12/24/17at 18:24; Start 12/08/17 at 08:00 Montelukast Sodium (Singulair) 10 mg HS PO Last administered on 12/24/17at 20:12 ; Start 12/07/17 at 21:00 Risperidone (RisperDAL) 0.25 mg BID PO Last administered on 12/15/17at 08:01; Start 12/07/17 at 21:00; Stop 12/15/17 at 11:52; Status DC Sennosides (Senna) 8.6 mg HS PO Last administered on 12/24/17at 20:12; Start at 21:00 Simvastatin (Zocor) 10 mg DAILYWSUP PO Last administered on 12/09/17at 17:02; Start 12/08/17 at 17:00; Stop 12/10/17 at 16:11; Status DC Citalopram Hydrobromide (CeleXA) 20 mg DAILY PO Last administered on 12/08/17at 08:30; Start 12/08/17 at 09:00; Stop 12/08/17 at 18:24; Status DC Multivitamins/ Calcium (Thera-M Plus) 1 tab QHS PO Last administered on at 20:12; Start 12/07/17 at 21:00 Spironolactone (Aldactone) 50 mg BID@0900,1500 PO Last administered on at 08:01; Start 12/08/17 at 09:00; Stop 12/16/17 at 14:00; Status DC Citalopram Hydrobromide (CeleXA) 10 mg DAILY PO Last administered on 12/24/17at 07:54; Start 12/09/17 at 09:00 Risperidone (RisperDAL) 3 mg HS PO Last administered on 12/17/17at 19:33; Start 12/08/17 at 21:00; Stop 12/17/17 at 21:00; Status DC Divalproex Sodium (Depakote Sprinkles) 250 mg DAILY PO Last administered on 12/12 08:09; Start 12/09/17 at 09:00; Stop 12/12/17 at 18:41; Status DC Divalproex Sodium (Depakote Sprinkles) 500 mg HS PO Last administered on at 20:26; Start 12/08/17 at 21:00; Stop 12/12/17 at 18:41; Status DC Levothyroxine Sodium (Synthroid) 75 mcg DAILY06 PO Last administered on 06:19; Start 12/10/17 at 06:00 Enoxaparin Sodium (Lovenox) 40 mg Q24H SQ Last administered on 12/24/17at 20:12 ; Start 12/09/17 at 22:00 Simvastatin (Zocor) 10 mg HS PO Last administered on 12/24/17at 20:12; Start 12/10/17 at 21:00 Vitamin D (Vitamin D3) 2,000 unit DAILYBFRSUP PO Last administered on at 18:24; Start 12/11/17 at 17:00 Divalproex Sodium (Depakote Sprinkles) 500 mg BID PO Last administered on at 20:12; Start 12/12/17 at 21:00 Buspirone HCl (Buspar) 5 mg BID92 PO Last administered on 12/24/17at 13:08; Start 12/14/17 at 09:00 Risperidone (RisperDAL) 0.25 mg DAILY PO Last administered on 12/24/17at 07:54; Start 12/16/17 at 09:00 Risperidone (RisperDAL) 2.75 mg HS PO Last administered on 12/20/17at 19:40; Start 12/18/17 at 21:00; Stop 12/20/17 at 20:59; Status DC Risperidone (RisperDAL) 2.5 mg QHS PO Last administered on 12/22/17at 19:52; Start 12/21/17 at 21:00; Stop 12/23/17 at 20:59; Status DC Risperidone (RisperDAL) 2.25 mg QHS PO Last administered on 12/24/17at 20:16; Start 12/24/17 at 21:00; Stop 12/26/17 at 20:59 Risperidone (RisperDAL) 2 mg HS PO ; Start 12/27/17 at 21:00; Stop 12/29/17 at 20:59 Risperidone (RisperDAL) 1.75 mg HS PO ; Start 12/30/17 at 21:00 Furosemide (Lasix) 20 mg DAILY PO Last administered on 12/24/17at 07:53; Start 12/17/17 at 09:00 Lisinopril (Prinivil) 5 mg DAILY PO Last administered on 12/21/17at 08:59; Start 12/17/17 at 09:00 Spironolactone (Aldactone) 50 mg DAILY08 PO Last administered on 12/24/17at 07: 54; Start 12/17/17 at 08:00 Active Scripts Active Reported Levetiracetam 100 Mg/1 Ml Solution 8 Ml PO BID Spironolactone 50 Mg Tablet 50 Mg PO BID@0900,1500 Risperidone 0.5 Mg Tablet 0.25 Mg PO BID Escitalopram Oxalate 10 Mg Tablet 10 Mg PO QHS Senna (Sennosides) 8.6 Mg Tablet 8.6 Mg PO HS Multivitamins (Multivitamin) 1 Each Tablet 1 Tab PO QHS Metformin Hcl 500 Mg Tablet 500 Mg PO BIDWMEALS Montelukast Sodium Tablet (Montelukast Sodium) 10 Mg Tablet 10 Mg PO HS Levothyroxine Sodium 75 Mcg Tablet 75 Mcg PO DAILYAC Lasix (Furosemide) 40 Mg Tablet 40 Mg PO DAILY Lisinopril 10 Mg Tablet 10 Mg PO DAILY Aspirin Ec (Aspirin) 81 Mg Tablet. 81 Mg PO DAILY Simvastatin 10 Mg Tablet 10 Mg PO DAILYWSUP I have reviewed the current psychotropics carefully including drug interactions. Risk benefit ratio favors no change other than as noted in my dictated progress note. Diagnosis: Problems: (1) Confusion state (2) Dementia (3) DISORGANIZED SCHIZOPHRENIA (4) Schizophrenia, disorganized, subchronic with acute exacerbation (5) Mood disorder as late effect of cerebrovascular accident (CVA) MOE CLARK MD Dec 24, 2017 22:20
[2017-12-25] MEDS: LEVOTHYROXINE 75 MCG TABLET PO SCH (05:55)
[2017-12-25 06:25] VITALS: BP 116/68
[2017-12-25] MEDS: metFORMIN 500 MG TABLET PO SCH ×2 (07:37→18:32)
[2017-12-25] MEDS: SPIRONOLACTONE 25 MG TABLET PO SCH (07:37)
[2017-12-25] MEDS: risperiDONE 0.25 MG TABLET. PO SCH (07:37)
[2017-12-25] MEDS: busPIRone 5 MG TABLET. PO SCH ×2 (07:37→13:29)
[2017-12-25] MEDS: LISINOPRIL 5 MG TABLET. PO SCH (07:37)
[2017-12-25] MEDS: CITALOPRAM 10 MG TABLET. PO SCH (07:37)
[2017-12-25] MEDS: FUROSEMIDE 20 MG TABLET PO SCH (07:38)
[2017-12-25] MEDS: ASPIRIN ENTERIC COATED 81 MG TABLET.DR. PO SCH (07:38)
[2017-12-25] MEDS: DIVALPROEX 125 MG CAP.SPRINK PO SCH ×2 (07:38→20:12)
--- NOTE | 2017-12-25 15:01 | PN ---
DATE: 12/23/2017 This late entry 12/23/2017 covers elements not covered in my initial note 12/23/2017. SUBJECTIVE: I met with the patient in the evening of 12/23/2017. The patient has been somewhat drowsy at times, but not aggressive. She is still a little labile in her mood, irritable. Valproic acid level at last check was 66. REVIEW OF SYSTEMS: Ambulation impaired with walker. No CV, , pulmonary, eye, ENT system symptoms on review. MENTAL STATUS EXAM: Oriented to herself and situation. Speech moderate latency, often responses monosyllabic. Abstraction fair, computation impaired, language function intact. Mood and affect at times somewhat labile. LABORATORY DATA: Reviewed. IMPRESSION: Schizoaffective disorder, bipolar type, with psychotic features. Rest unchanged. PLAN: Continue to taper Risperdal. Continue rest unchanged. MAN Alex CLARK MD DR: CADY/aggie JOB#: [id number] / [id number]
[2017-12-25 15:54] VITALS: BP 98/66
[2017-12-25] MEDS: CHOLECALCIFEROL (VITAMIN D3) 1,000 UNIT TABLET PO SCH (18:33)
--- NOTE | 2017-12-25 19:56 | PDOC ---
Exam Note: Alexey Note: Please also refer to the separate dictated note~for this date of service dictated separately.~Patient seen individually. Discussed the patient with Nursing staff reviewed the chart.~Reviewed interim history and current functioning. Reviewed vital signs,~Labs/ Radiology~and current medications noted below. Continue current treatment with the changes noted in the dictated addendum note Assessment: Vital Signs: Vital Signs Date Time Temp Pulse Resp B/P (MAP) Pulse Ox O2 Delivery O2 Flow Rate FiO2 12/25/17 15:54 97.3 71 20 98/66 (77) 96 12/21/17 06:20 Room Air I&O Intake and Output 12/25/17 07:00 Intake Total 1320 ml Balance 1320 ml Intake Oral 1320 ml # Bowel Movements 1 Current Medications: Meds: Current Medications Acetaminophen (Tylenol) 650 mg PRN Q6HRS PRN PO PAIN / TEMP Last administered on 12/11/17 13:45; Start 12/07/17 at 17:00 Multi-Ingredient Ointment (Analgesic [place]) 1 jevon PRN QID PRN TP MUSCLE PAIN Last administered on 12/19/17at 13:34; Start 12/07/17 at 17:00 Al Hydroxide/Mg Hydroxide (Mylanta Plus Xs) 15 ml PRN AFTMEALHC PRN PO DYSPEPSIA Last administered on 12/24/17at 09:31; Start 12/07/17 at 17:00 Magnesium Hydroxide (Milk Of Magnesia) 2,400 mg PRN QHS PRN PO CONSTIPATION; Start 12/07/17 at 17:00 Aspirin (Aspirin Enteric Coated) 81 mg DAILY PO Last administered on 12/25/17at 07:38; Start 12/08/17 at 09:00 Furosemide (Lasix) 40 mg DAILY PO Last administered on 12/16/17at 08:00; Start at 09:00; Stop 12/16/17 at 14:00; Status DC Levetiracetam (Keppra) 800 mg BID PO Last administered on 12/25/17at 07:38; Start 12/07/17 at 21:00 Levothyroxine Sodium (Synthroid) 75 mcg DAILYAC PO Last administered on 07:43; Start 12/08/17 at 07:30; Stop 12/09/17 at 07:46; Status DC Lisinopril (Prinivil) 10 mg DAILY PO Last administered on 12/16/17at 08:01; Start 12/08/17 at 09:00; Stop 12/16/17 at 14:00; Status DC Metformin HCl (Glucophage) 500 mg BIDWMEALS PO Last administered on 12/25/17at 18:32; Start 12/08/17 at 08:00 Montelukast Sodium (Singulair) 10 mg HS PO Last administered on 12/24/17at 20:12 ; Start 12/07/17 at 21:00 Risperidone (RisperDAL) 0.25 mg BID PO Last administered on 12/15/17at 08:01; Start 12/07/17 at 21:00; Stop 12/15/17 at 11:52; Status DC Sennosides (Senna) 8.6 mg HS PO Last administered on 12/24/17at 20:12; Start at 21:00 Simvastatin (Zocor) 10 mg DAILYWSUP PO Last administered on 12/09/17at 17:02; Start 12/08/17 at 17:00; Stop 12/10/17 at 16:11; Status DC Citalopram Hydrobromide (CeleXA) 20 mg DAILY PO Last administered on 12/08/17at 08:30; Start 12/08/17 at 09:00; Stop 12/08/17 at 18:24; Status DC Multivitamins/ Calcium (Thera-M Plus) 1 tab QHS PO Last administered on at 20:12; Start 12/07/17 at 21:00 Spironolactone (Aldactone) 50 mg BID@0900,1500 PO Last administered on at 08:01; Start 12/08/17 at 09:00; Stop 12/16/17 at 14:00; Status DC Citalopram Hydrobromide (CeleXA) 10 mg DAILY PO Last administered on 12/25/17at 07:37; Start 12/09/17 at 09:00 Risperidone (RisperDAL) 3 mg HS PO Last administered on 12/17/17at 19:33; Start 12/08/17 at 21:00; Stop 12/17/17 at 21:00; Status DC Divalproex Sodium (Depakote Sprinkles) 250 mg DAILY PO Last administered on 12/12 08:09; Start 12/09/17 at 09:00; Stop 12/12/17 at 18:41; Status DC Divalproex Sodium (Depakote Sprinkles) 500 mg HS PO Last administered on 20:26; Start 12/08/17 at 21:00; Stop 12/12/17 at 18:41; Status DC Levothyroxine Sodium (Synthroid) 75 mcg DAILY06 PO Last administered on 05:55; Start 12/10/17 at 06:00 Enoxaparin Sodium (Lovenox) 40 mg Q24H SQ Last administered on 12/24/17 20:12 ; Start 12/09/17 at 22:00 Simvastatin (Zocor) 10 mg HS PO Last administered on 12/24/17 20:12; Start 12/10/17 at 21:00 Vitamin D (Vitamin D3) 2,000 unit DAILYBFRSUP PO Last administered on at 18:33; Start 12/11/17 at 17:00 Divalproex Sodium (Depakote Sprinkles) 500 mg BID PO Last administered on 07:38; Start 12/12/17 at 21:00 Buspirone HCl (Buspar) 5 mg BID92 PO Last administered on 12/25/17 13:29; Start 12/14/17 at 09:00 Risperidone (RisperDAL) 0.25 mg DAILY PO Last administered on 12/25/17at 07:37; Start 12/16/17 at 09:00 Risperidone (RisperDAL) 2.75 mg HS PO Last administered on 12/20/17 19:40; Start 12/18/17 at 21:00; Stop 12/20/17 at 20:59; Status DC Risperidone (RisperDAL) 2.5 mg QHS PO Last administered on 12/22/17at 19:52; Start 12/21/17 at 21:00; Stop 12/23/17 at 20:59; Status DC Risperidone (RisperDAL) 2.25 mg QHS PO Last administered on 12/24/17at 20:16; Start 12/24/17 at 21:00; Stop 12/26/17 at 20:59 Risperidone (RisperDAL) 2 mg HS PO ; Start 12/27/17 at 21:00; Stop 12/29/17 at 20:59 Risperidone (RisperDAL) 1.75 mg HS PO ; Start 12/30/17 at 21:00 Furosemide (Lasix) 20 mg DAILY PO Last administered on 12/25/17at 07:38; Start 12/17/17 at 09:00 Lisinopril (Prinivil) 5 mg DAILY PO Last administered on 12/25/17at 07:37; Start 12/17/17 at 09:00 Spironolactone (Aldactone) 50 mg DAILY08 PO Last administered on 12/25/17at 07: 37; Start 12/17/17 at 08:00 Active Scripts Active Reported Levetiracetam 100 Mg/1 Ml Solution 8 Ml PO BID Spironolactone 50 Mg Tablet 50 Mg PO BID@0900,1500 Risperidone 0.5 Mg Tablet 0.25 Mg PO BID Escitalopram Oxalate 10 Mg Tablet 10 Mg PO QHS Senna (Sennosides) 8.6 Mg Tablet 8.6 Mg PO HS Multivitamins (Multivitamin) 1 Each Tablet 1 Tab PO QHS Metformin Hcl 500 Mg Tablet 500 Mg PO BIDWMEALS Montelukast Sodium Tablet (Montelukast Sodium) 10 Mg Tablet 10 Mg PO HS Levothyroxine Sodium 75 Mcg Tablet 75 Mcg PO DAILYAC Lasix (Furosemide) 40 Mg Tablet 40 Mg PO DAILY Lisinopril 10 Mg Tablet 10 Mg PO DAILY Aspirin Ec (Aspirin) 81 Mg Tablet. 81 Mg PO DAILY Simvastatin 10 Mg Tablet 10 Mg PO DAILYWSUP I have reviewed the current psychotropics carefully including drug interactions. Risk benefit ratio favors no change other than as noted in my dictated progress note. Diagnosis: Problems: (1) Confusion state (2) Dementia (3) DISORGANIZED SCHIZOPHRENIA (4) Schizophrenia, disorganized, subchronic with acute exacerbation (5) Mood disorder as late effect of cerebrovascular accident (CVA) MOE CLARK MD Dec 25, 2017 19:56
[2017-12-25] MEDS: MULTIVITAMIN with MINERAL TABLET. PO SCH (20:12)
[2017-12-25] MEDS: SIMVASTATIN 10 MG TABLET PO SCH (20:12)
[2017-12-25] MEDS: SENNOSIDES 8.6 MG TABLET PO SCH (20:12)
[2017-12-25] MEDS: MONTELUKAST 10 MG TABLET. PO SCH (20:12)
[2017-12-25] MEDS: risperiDONE 1 MG TABLET. PO SCH (20:12)
[2017-12-25] MEDS: ENOXAPARIN 40 MG/0.4 ML DISP.SYRIN. SQ SCH (20:13)
[2017-12-25] MEDS: ACETAMINOPHEN 325 MG TABLET PO PRN (20:59)
--- NOTE | 2017-12-25 22:43 | PN ---
DATE: 12/24/2017 PSYCHIATRIC PROGRESS NOTE This is a late entry of 12/24/2017, covers elements not covered in the initial note of 12/24/2017. HISTORY OF PRESENT ILLNESS: I met with the patient evening of 12/24/2017. The patient slept 6 hours previous evening. Risperdal is being tapered. She is still drowsy. Ambulates with a walker. No CV, , pulmonary, eye system symptoms on review. MENTAL STATUS EXAM: Oriented to herself. Speech is low in volume, often responses monosyllabic, smiling. Abstraction fair, computation impaired, language function intact. No overt psychosis noted. No suicidal or homicidal ideation. IMPRESSION: Schizoaffective disorder, bipolar type. Rest unchanged. PLAN: Taper the Risperdal. Adjust further as clinically indicated. MAN Alex CLARK MD DR: CADY/aggie JOB#: [id number] / [id number]
[2017-12-26] MEDS: LEVOTHYROXINE 75 MCG TABLET PO SCH (05:11)
[2017-12-26 06:09] VITALS: BP 114/56
[2017-12-26] MEDS: busPIRone 5 MG TABLET. PO SCH ×2 (08:23→13:49)
[2017-12-26] MEDS: risperiDONE 0.25 MG TABLET. PO SCH (08:23)
[2017-12-26] MEDS: CITALOPRAM 10 MG TABLET. PO SCH (08:23)
[2017-12-26] MEDS: FUROSEMIDE 20 MG TABLET PO SCH (08:23)
[2017-12-26] MEDS: metFORMIN 500 MG TABLET PO SCH ×2 (08:23→17:29)
[2017-12-26] MEDS: ASPIRIN ENTERIC COATED 81 MG TABLET.DR. PO SCH (08:23)
[2017-12-26] MEDS: LISINOPRIL 5 MG TABLET. PO SCH (08:24)
[2017-12-26] MEDS: SPIRONOLACTONE 25 MG TABLET PO SCH (08:24)
[2017-12-26] MEDS: DIVALPROEX 125 MG CAP.SPRINK PO SCH ×2 (08:24→20:31)
[2017-12-26 15:54] VITALS: BP 101/64
[2017-12-26] MEDS: CHOLECALCIFEROL (VITAMIN D3) 1,000 UNIT TABLET PO SCH (17:29)
--- NOTE | 2017-12-26 19:51 | PDOC ---
Exam Note: Alexey Note: Please also refer to the separate dictated note~for this date of service dictated separately.~Patient seen individually. Discussed the patient with Nursing staff reviewed the chart.~Reviewed interim history and current functioning. Reviewed vital signs,~Labs/ Radiology~and current medications noted below. Continue current treatment with the changes noted in the dictated addendum note Assessment: Vital Signs: Vital Signs Date Time Temp Pulse Resp B/P (MAP) Pulse Ox O2 Delivery O2 Flow Rate FiO2 12/26/17 15:54 98.1 77 16 101/64 (76) 98 12/21/17 06:20 Room Air I&O Intake and Output 12/26/17 07:00 Intake Total 965 ml Balance 965 ml Intake Oral 965 ml Current Medications: Meds: Current Medications Acetaminophen (Tylenol) 650 mg PRN Q6HRS PRN PO PAIN / TEMP Last administered on 12/25/17at 20:59; Start 12/07/17 at 17:00 Multi-Ingredient Ointment (Analgesic [place]) 1 jevon PRN QID PRN TP MUSCLE PAIN Last administered on 12/19/17at 13:34; Start 12/07/17 at 17:00 Al Hydroxide/Mg Hydroxide (Mylanta Plus Xs) 15 ml PRN AFTMEALHC PRN PO DYSPEPSIA Last administered on 12/24/17at 09:31; Start 12/07/17 at 17:00 Magnesium Hydroxide (Milk Of Magnesia) 2,400 mg PRN QHS PRN PO CONSTIPATION; Start 12/07/17 at 17:00 Aspirin (Aspirin Enteric Coated) 81 mg DAILY PO Last administered on 12/26/17at 08:23; Start 12/08/17 at 09:00 Furosemide (Lasix) 40 mg DAILY PO Last administered on 12/16/17 08:00; Start at 09:00; Stop 12/16/17 at 14:00; Status DC Levetiracetam (Keppra) 800 mg BID PO Last administered on 12/26/17 08:23; Start 12/07/17 at 21:00 Levothyroxine Sodium (Synthroid) 75 mcg DAILYAC PO Last administered on 07:43; Start 12/08/17 at 07:30; Stop 12/09/17 at 07:46; Status DC Lisinopril (Prinivil) 10 mg DAILY PO Last administered on 12/16/17 08:01; Start 12/08/17 at 09:00; Stop 12/16/17 at 14:00; Status DC Metformin HCl (Glucophage) 500 mg BIDWMEALS PO Last administered on 12/26/17at 17:29; Start 12/08/17 at 08:00 Montelukast Sodium (Singulair) 10 mg HS PO Last administered on 12/25/17at 20:12 ; Start 12/07/17 at 21:00 Risperidone (RisperDAL) 0.25 mg BID PO Last administered on 12/15/17 08:01; Start 12/07/17 at 21:00; Stop 12/15/17 at 11:52; Status DC Sennosides (Senna) 8.6 mg HS PO Last administered on 12/25/17 20:12; Start at 21:00 Simvastatin (Zocor) 10 mg DAILYWSUP PO Last administered on 12/09/17 17:02; Start 12/08/17 at 17:00; Stop 12/10/17 at 16:11; Status DC Citalopram Hydrobromide (CeleXA) 20 mg DAILY PO Last administered on 12/08/17at 08:30; Start 12/08/17 at 09:00; Stop 12/08/17 at 18:24; Status DC Multivitamins/ Calcium (Thera-M Plus) 1 tab QHS PO Last administered on 20:12; Start 12/07/17 at 21:00 Spironolactone (Aldactone) 50 mg BID@0900,1500 PO Last administered on at 08:01; Start 12/08/17 at 09:00; Stop 12/16/17 at 14:00; Status DC Citalopram Hydrobromide (CeleXA) 10 mg DAILY PO Last administered on 12/26/17at 08:23; Start 12/09/17 at 09:00 Risperidone (RisperDAL) 3 mg HS PO Last administered on 12/17/17at 19:33; Start 12/08/17 at 21:00; Stop 12/17/17 at 21:00; Status DC Divalproex Sodium (Depakote Sprinkles) 250 mg DAILY PO Last administered on 12/12 08:09; Start 12/09/17 at 09:00; Stop 12/12/17 at 18:41; Status DC Divalproex Sodium (Depakote Sprinkles) 500 mg HS PO Last administered on 20:26; Start 12/08/17 at 21:00; Stop 12/12/17 at 18:41; Status DC Levothyroxine Sodium (Synthroid) 75 mcg DAILY06 PO Last administered on 05:11; Start 12/10/17 at 06:00 Enoxaparin Sodium (Lovenox) 40 mg Q24H SQ Last administered on 12/25/17 20:13 ; Start 12/09/17 at 22:00 Simvastatin (Zocor) 10 mg HS PO Last administered on 12/25/17 20:12; Start 12/10/17 at 21:00 Vitamin D (Vitamin D3) 2,000 unit DAILYBFRSUP PO Last administered on 17:29; Start 12/11/17 at 17:00 Divalproex Sodium (Depakote Sprinkles) 500 mg BID PO Last administered on 08:24; Start 12/12/17 at 21:00 Buspirone HCl (Buspar) 5 mg BID92 PO Last administered on 12/26/17 13:49; Start 12/14/17 at 09:00 Risperidone (RisperDAL) 0.25 mg DAILY PO Last administered on 12/26/17at 08:23; Start 12/16/17 at 09:00 Risperidone (RisperDAL) 2.75 mg HS PO Last administered on 12/20/17at 19:40; Start 12/18/17 at 21:00; Stop 12/20/17 at 20:59; Status DC Risperidone (RisperDAL) 2.5 mg QHS PO Last administered on 12/22/17at 19:52; Start 12/21/17 at 21:00; Stop 12/23/17 at 20:59; Status DC Risperidone (RisperDAL) 2.25 mg QHS PO Last administered on 12/25/17at 20:12; Start 12/24/17 at 21:00; Stop 12/26/17 at 20:59 Risperidone (RisperDAL) 2 mg HS PO ; Start 12/27/17 at 21:00; Stop 12/29/17 at 20:59 Risperidone (RisperDAL) 1.75 mg HS PO ; Start 12/30/17 at 21:00 Furosemide (Lasix) 20 mg DAILY PO Last administered on 12/26/17at 08:23; Start 12/17/17 at 09:00 Lisinopril (Prinivil) 5 mg DAILY PO Last administered on 12/26/17at 08:24; Start 12/17/17 at 09:00 Spironolactone (Aldactone) 50 mg DAILY08 PO Last administered on 12/26/17at 08: 24; Start 12/17/17 at 08:00 Active Scripts Active Reported Levetiracetam 100 Mg/1 Ml Solution 8 Ml PO BID Spironolactone 50 Mg Tablet 50 Mg PO BID@0900,1500 Risperidone 0.5 Mg Tablet 0.25 Mg PO BID Escitalopram Oxalate 10 Mg Tablet 10 Mg PO QHS Senna (Sennosides) 8.6 Mg Tablet 8.6 Mg PO HS Multivitamins (Multivitamin) 1 Each Tablet 1 Tab PO QHS Metformin Hcl 500 Mg Tablet 500 Mg PO BIDWMEALS Montelukast Sodium Tablet (Montelukast Sodium) 10 Mg Tablet 10 Mg PO HS Levothyroxine Sodium 75 Mcg Tablet 75 Mcg PO DAILYAC Lasix (Furosemide) 40 Mg Tablet 40 Mg PO DAILY Lisinopril 10 Mg Tablet 10 Mg PO DAILY Aspirin Ec (Aspirin) 81 Mg Tablet. 81 Mg PO DAILY Simvastatin 10 Mg Tablet 10 Mg PO DAILYWSUP I have reviewed the current psychotropics carefully including drug interactions. Risk benefit ratio favors no change other than as noted in my dictated progress note. Diagnosis: Problems: (1) Confusion state (2) Dementia (3) DISORGANIZED SCHIZOPHRENIA (4) Schizophrenia, disorganized, subchronic with acute exacerbation (5) Mood disorder as late effect of cerebrovascular accident (CVA) MOE LCARK MD Dec 26, 2017 19:51
[2017-12-26] MEDS: SENNOSIDES 8.6 MG TABLET PO SCH (20:32)
[2017-12-26] MEDS: MONTELUKAST 10 MG TABLET. PO SCH (20:32)
[2017-12-26] MEDS: MULTIVITAMIN with MINERAL TABLET. PO SCH (20:33)
[2017-12-26] MEDS: SIMVASTATIN 10 MG TABLET PO SCH (20:33)
[2017-12-26] MEDS: ENOXAPARIN 40 MG/0.4 ML DISP.SYRIN. SQ SCH (20:33)
[2017-12-26] MEDS: risperiDONE 1 MG TABLET. PO SCH (20:34)
[2017-12-27] MEDS: LEVOTHYROXINE 75 MCG TABLET PO SCH (05:49)
[2017-12-27 06:04] VITALS: BP 107/49
[2017-12-27] MEDS: CITALOPRAM 10 MG TABLET. PO SCH (07:45)
[2017-12-27] MEDS: metFORMIN 500 MG TABLET PO SCH ×2 (07:45→17:46)
[2017-12-27] MEDS: ASPIRIN ENTERIC COATED 81 MG TABLET.DR. PO SCH (07:45)
[2017-12-27] MEDS: risperiDONE 0.25 MG TABLET. PO SCH (07:45)
[2017-12-27] MEDS: FUROSEMIDE 20 MG TABLET PO SCH (07:45)
[2017-12-27] MEDS: DIVALPROEX 125 MG CAP.SPRINK PO SCH ×2 (07:45→19:47)
[2017-12-27] MEDS: busPIRone 5 MG TABLET. PO SCH ×2 (07:46→13:43)
[2017-12-27 07:48] VITALS: BP 118/56
[2017-12-27] MEDS: LISINOPRIL 5 MG TABLET. PO SCH (07:49)
[2017-12-27] MEDS: SPIRONOLACTONE 25 MG TABLET PO SCH (07:49)
[2017-12-27 16:20] VITALS: BP 110/52
[2017-12-27] MEDS: CHOLECALCIFEROL (VITAMIN D3) 1,000 UNIT TABLET PO SCH (17:46)
[2017-12-27] MEDS: SIMVASTATIN 10 MG TABLET PO SCH (19:47)
[2017-12-27] MEDS: MULTIVITAMIN with MINERAL TABLET. PO SCH (19:47)
[2017-12-27] MEDS: MONTELUKAST 10 MG TABLET. PO SCH (19:48)
[2017-12-27] MEDS: SENNOSIDES 8.6 MG TABLET PO SCH (19:49)
[2017-12-27] MEDS: ENOXAPARIN 40 MG/0.4 ML DISP.SYRIN. SQ SCH (19:51)
--- NOTE | 2017-12-27 19:53 | PDOC ---
Exam Note: Alexey Note: Please also refer to the separate dictated note~for this date of service dictated separately.~Patient seen individually. Discussed the patient with Nursing staff reviewed the chart.~Reviewed interim history and current functioning. Reviewed vital signs,~Labs/ Radiology~and current medications noted below. Continue current treatment with the changes noted in the dictated addendum note Assessment: Vital Signs: Vital Signs Date Time Temp Pulse Resp B/P (MAP) Pulse Ox O2 Delivery O2 Flow Rate FiO2 12/27/17 16:20 98.2 77 18 110/52 (71) 99 I&O Intake and Output 12/27/17 07:00 Intake Total 1440 ml Balance 1440 ml Intake Oral 1440 ml # Voids 1 Current Medications: Meds: Current Medications Acetaminophen (Tylenol) 650 mg PRN Q6HRS PRN PO PAIN / TEMP Last administered on 12/25/17at 20:59; Start 12/07/17 at 17:00 Multi-Ingredient Ointment (Analgesic [place]) 1 jevon PRN QID PRN TP MUSCLE PAIN Last administered on 12/19/17at 13:34; Start 12/07/17 at 17:00 Al Hydroxide/Mg Hydroxide (Mylanta Plus Xs) 15 ml PRN AFTMEALHC PRN PO DYSPEPSIA Last administered on 12/24/17at 09:31; Start 12/07/17 at 17:00 Magnesium Hydroxide (Milk Of Magnesia) 2,400 mg PRN QHS PRN PO CONSTIPATION; Start 12/07/17 at 17:00 Aspirin (Aspirin Enteric Coated) 81 mg DAILY PO Last administered on 12/27/17at 07:45; Start 12/08/17 at 09:00 Furosemide (Lasix) 40 mg DAILY PO Last administered on 12/16/17at 08:00; Start at 09:00; Stop 12/16/17 at 14:00; Status DC Levetiracetam (Keppra) 800 mg BID PO Last administered on 12/27/17at 19:49; Start 12/07/17 at 21:00 Levothyroxine Sodium (Synthroid) 75 mcg DAILYAC PO Last administered on 07:43; Start 12/08/17 at 07:30; Stop 12/09/17 at 07:46; Status DC Lisinopril (Prinivil) 10 mg DAILY PO Last administered on 12/16/17 08:01; Start 12/08/17 at 09:00; Stop 12/16/17 at 14:00; Status DC Metformin HCl (Glucophage) 500 mg BIDWMEALS PO Last administered on 12/27/17at 17:46; Start 12/08/17 at 08:00 Montelukast Sodium (Singulair) 10 mg HS PO Last administered on 12/27/17 19:48 ; Start 12/07/17 at 21:00 Risperidone (RisperDAL) 0.25 mg BID PO Last administered on 12/15/17 08:01; Start 12/07/17 at 21:00; Stop 12/15/17 at 11:52; Status DC Sennosides (Senna) 8.6 mg HS PO Last administered on 12/27/17 19:49; Start at 21:00 Simvastatin (Zocor) 10 mg DAILYWSUP PO Last administered on 12/09/17 17:02; Start 12/08/17 at 17:00; Stop 12/10/17 at 16:11; Status DC Citalopram Hydrobromide (CeleXA) 20 mg DAILY PO Last administered on 12/08/17 08:30; Start 12/08/17 at 09:00; Stop 12/08/17 at 18:24; Status DC Multivitamins/ Calcium (Thera-M Plus) 1 tab QHS PO Last administered on at 19:47; Start 12/07/17 at 21:00 Spironolactone (Aldactone) 50 mg BID@0900,1500 PO Last administered on at 08:01; Start 12/08/17 at 09:00; Stop 12/16/17 at 14:00; Status DC Citalopram Hydrobromide (CeleXA) 10 mg DAILY PO Last administered on 12/27/17at 07:45; Start 12/09/17 at 09:00 Risperidone (RisperDAL) 3 mg HS PO Last administered on 12/17/17at 19:33; Start 12/08/17 at 21:00; Stop 12/17/17 at 21:00; Status DC Divalproex Sodium (Depakote Sprinkles) 250 mg DAILY PO Last administered on 12/12 08:09; Start 12/09/17 at 09:00; Stop 12/12/17 at 18:41; Status DC Divalproex Sodium (Depakote Sprinkles) 500 mg HS PO Last administered on 20:26; Start 12/08/17 at 21:00; Stop 12/12/17 at 18:41; Status DC Levothyroxine Sodium (Synthroid) 75 mcg DAILY06 PO Last administered on 05:49; Start 12/10/17 at 06:00 Enoxaparin Sodium (Lovenox) 40 mg Q24H SQ Last administered on 12/27/17 19:51 ; Start 12/09/17 at 22:00 Simvastatin (Zocor) 10 mg HS PO Last administered on 12/27/17 19:47; Start 12/10/17 at 21:00 Vitamin D (Vitamin D3) 2,000 unit DAILYBFRSUP PO Last administered on 17:46; Start 12/11/17 at 17:00 Divalproex Sodium (Depakote Sprinkles) 500 mg BID PO Last administered on 19:47; Start 12/12/17 at 21:00 Buspirone HCl (Buspar) 5 mg BID92 PO Last administered on 12/27/17 13:43; Start 12/14/17 at 09:00 Risperidone (RisperDAL) 0.25 mg DAILY PO Last administered on 12/27/17 07:45; Start 12/16/17 at 09:00 Risperidone (RisperDAL) 2.75 mg HS PO Last administered on 12/20/17 19:40; Start 12/18/17 at 21:00; Stop 12/20/17 at 20:59; Status DC Risperidone (RisperDAL) 2.5 mg QHS PO Last administered on 12/22/17 19:52; Start 12/21/17 at 21:00; Stop 12/23/17 at 20:59; Status DC Risperidone (RisperDAL) 2.25 mg QHS PO Last administered on 12/26/17at 20:34; Start 12/24/17 at 21:00; Stop 12/26/17 at 20:59; Status DC Risperidone (RisperDAL) 2 mg HS PO Last administered on 12/27/17at 19:50; Start 12/27/17 at 21:00; Stop 12/29/17 at 20:59 Risperidone (RisperDAL) 1.75 mg HS PO ; Start 12/30/17 at 21:00 Furosemide (Lasix) 20 mg DAILY PO Last administered on 12/27/17at 07:45; Start 12/17/17 at 09:00 Lisinopril (Prinivil) 5 mg DAILY PO Last administered on 12/27/17at 07:49; Start 12/17/17 at 09:00 Spironolactone (Aldactone) 50 mg DAILY08 PO Last administered on 12/27/17at 07: 49; Start 12/17/17 at 08:00 Active Scripts Active Reported Levetiracetam 100 Mg/1 Ml Solution 8 Ml PO BID Spironolactone 50 Mg Tablet 50 Mg PO BID@0900,1500 Risperidone 0.5 Mg Tablet 0.25 Mg PO BID Escitalopram Oxalate 10 Mg Tablet 10 Mg PO QHS Senna (Sennosides) 8.6 Mg Tablet 8.6 Mg PO HS Multivitamins (Multivitamin) 1 Each Tablet 1 Tab PO QHS Metformin Hcl 500 Mg Tablet 500 Mg PO BIDWMEALS Montelukast Sodium Tablet (Montelukast Sodium) 10 Mg Tablet 10 Mg PO HS Levothyroxine Sodium 75 Mcg Tablet 75 Mcg PO DAILYAC Lasix (Furosemide) 40 Mg Tablet 40 Mg PO DAILY Lisinopril 10 Mg Tablet 10 Mg PO DAILY Aspirin Ec (Aspirin) 81 Mg Tablet. 81 Mg PO DAILY Simvastatin 10 Mg Tablet 10 Mg PO DAILYWSUP I have reviewed the current psychotropics carefully including drug interactions. Risk benefit ratio favors no change other than as noted in my dictated progress note. 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
[2017-12-27] MEDS ORDERED: risperiDONE 2 MG TABLET. PO SCH (21:00)
--- NOTE | 2017-12-27 22:58 | PN ---
DATE: 12/25/2017 This is a late entry of 12/25/2017, covers the elements not covered in my initial note of 12/25/2017. SUBJECTIVE: I met with the patient in the evening of 12/25/2017. The patient has been incontinent on the floor, had a good day otherwise, somewhat animated overly so, repeatedly telling me how she thought was very good looking. We will have to monitor this closely as we are tapering her Risperdal. REVIEW OF SYSTEMS: Ambulation impaired with walker. No CV, , pulmonary, eye, ENT system symptoms on review. MENTAL STATUS EXAM: Oriented to herself and situation. Speech, low in volume, coherent, abstraction fair, computation impaired, language function intact, attention span short. Mood and affect somewhat overly animated at times. LABORATORY DATA: Reviewed. IMPRESSION: Schizoaffective disorder, bipolar type, mixed cognitive disorder, unspecified. Rest unchanged. PLAN: Continue current psychotropics. Adjust further as clinically indicated. MAN Alex CLARK MD DR: CADY/aggie JOB#: [id number] / [id number]
--- NOTE | 2017-12-27 22:59 | PN ---
DATE: 12/26/2017 This is a late entry, 12/26/2017, covers the elements not covered in my initial note, 12/26/2017. SUBJECTIVE: I met with the patient in the evening of 12/26/2017. Overall, the patient has been fairly appropriate on the unit, quite animated, as I met with her, stating how much she liked to me. REVIEW OF SYSTEMS: Ambulation impaired with walker. No CV, , pulmonary, eye system symptoms on review. MENTAL STATUS EXAM: Oriented to herself and situation. Speech, low in volume; coherent; abstraction fair; computation impaired; language function intact; attention span short. Mood and affect somewhat labile, but showing improvement. LABORATORY DATA: Reviewed. IMPRESSION: Schizoaffective disorder, bipolar type, mixed. Rest unchanged. PLAN: Continue to taper the Risperdal. Valproic acid level therapeutic at 56. MAN Alex CLARK MD DR: CADY/aggie JOB#: [id number] / [id number]
[2017-12-27] MEDS ORDERED: ACET325T9 PO (23:52)
[2017-12-27] MEDS ORDERED: CHOL10003 PO (23:53)
[2017-12-27] MEDS ORDERED: DIVA125C PO (23:55)
[2017-12-27] MEDS ORDERED: ENOX40DI SQ (23:58)
[2017-12-28] MEDS ORDERED: FURO20TA3 PO
[2017-12-28] MEDS ORDERED: LISI-338 PO (00:03)
[2017-12-28] MEDS ORDERED: MAG30ORA2 PO (00:05)
[2017-12-28] MEDS ORDERED: MAGN2400 PO (00:06)
[2017-12-28] MEDS ORDERED: METH29OI TP (00:07)
[2017-12-28] MEDS ORDERED: BUSP5TAB PO (00:14)
[2017-12-28] MEDS ORDERED: RISP0.2519 PO (00:15)
[2017-12-28] MEDS ORDERED: RISP2TAB33 PO ×2 (00:16→00:19)
[2017-12-28] MEDS: LEVOTHYROXINE 75 MCG TABLET PO SCH (05:33)
[2017-12-28 05:40] VITALS: BP 117/56
[2017-12-28] MEDS: SPIRONOLACTONE 25 MG TABLET PO SCH (09:32)
[2017-12-28 09:33] VITALS: BP 117/56
[2017-12-28] MEDS: CITALOPRAM 10 MG TABLET. PO SCH (09:33)
[2017-12-28] MEDS: busPIRone 5 MG TABLET. PO SCH (09:33)
[2017-12-28] MEDS: LISINOPRIL 5 MG TABLET. PO SCH (09:33)
[2017-12-28] MEDS: FUROSEMIDE 20 MG TABLET PO SCH (09:33)
[2017-12-28] MEDS: metFORMIN 500 MG TABLET PO SCH (09:35)
[2017-12-28] MEDS: risperiDONE 0.25 MG TABLET. PO SCH (09:35)
[2017-12-28] MEDS: DIVALPROEX 125 MG CAP.SPRINK PO SCH (09:35)
[2017-12-28] MEDS: ASPIRIN ENTERIC COATED 81 MG TABLET.DR. PO SCH (09:35)
--- NOTE | 2017-12-28 19:02 | PDOC ---
Exam Note: Alexey Note: Please also refer to the separate dictated note~for this date of service dictated separately.~Patient seen individually. Discussed the patient with Nursing staff reviewed the chart.~Reviewed interim history and current functioning. Reviewed vital signs,~Labs/ Radiology~and current medications noted below. Continue current treatment with the changes noted in the dictated addendum note Assessment: Vital Signs: Vital Signs Date Time Temp Pulse Resp B/P (MAP) Pulse Ox O2 Delivery O2 Flow Rate FiO2 12/28/17 09:33 75 117/56 12/28/17 05:40 96.7 20 97 Room Air I&O Intake and Output 12/28/17 07:00 Intake Total 1080 ml Balance 1080 ml Intake Oral 1080 ml # Voids 3 # Bowel Movements 1 Current Medications: Meds: Current Medications Acetaminophen (Tylenol) 650 mg PRN Q6HRS PRN PO PAIN / TEMP Last administered on 12/25/17at 20:59; Start 12/07/17 at 17:00; Stop 12/28/17 at 10:51; Status DC Multi-Ingredient Ointment (Analgesic [place]) 1 ottoniel PRN QID PRN TP MUSCLE PAIN Last administered on 12/19/17at 13:34; Start 12/07/17 at 17:00; Stop 12/28/17 at 10:51; Status DC Al Hydroxide/Mg Hydroxide (Mylanta Plus Xs) 15 ml PRN AFTMEALHC PRN PO DYSPEPSIA Last administered on 12/24/17at 09:31; Start 12/07/17 at 17:00; Stop at 10:51; Status DC Magnesium Hydroxide (Milk Of Magnesia) 2,400 mg PRN QHS PRN PO CONSTIPATION; Start 12/07/17 at 17:00; Stop 12/28/17 at 10:51; Status DC Aspirin (Aspirin Enteric Coated) 81 mg DAILY PO Last administered on 12/28/17at 09:35; Start 12/08/17 at 09:00; Stop 12/28/17 at 10:51; Status DC Furosemide (Lasix) 40 mg DAILY PO Last administered on 12/16/17at 08:00; Start at 09:00; Stop 12/16/17 at 14:00; Status DC Levetiracetam (Keppra) 800 mg BID PO Last administered on 12/28/17at 09:00; Start 12/07/17 at 21:00; Stop 12/28/17 at 10:51; Status DC Levothyroxine Sodium (Synthroid) 75 mcg DAILYAC PO Last administered on at 07:43; Start 12/08/17 at 07:30; Stop 12/09/17 at 07:46; Status DC Lisinopril (Prinivil) 10 mg DAILY PO Last administered on 12/16/17at 08:01; Start 12/08/17 at 09:00; Stop 12/16/17 at 14:00; Status DC Metformin HCl (Glucophage) 500 mg BIDWMEALS PO Last administered on 12/28/17at 09:35; Start 12/08/17 at 08:00; Stop 12/28/17 at 10:51; Status DC Montelukast Sodium (Singulair) 10 mg HS PO Last administered on 12/27/17at 19:48 ; Start 12/07/17 at 21:00; Stop 12/28/17 at 10:51; Status DC Risperidone (RisperDAL) 0.25 mg BID PO Last administered on 12/15/17at 08:01; Start 12/07/17 at 21:00; Stop 12/15/17 at 11:52; Status DC Sennosides (Senna) 8.6 mg HS PO Last administered on 12/27/17at 19:49; Start at 21:00; Stop 12/28/17 at 10:51; Status DC Simvastatin (Zocor) 10 mg DAILYWSUP PO Last administered on 12/09/17at 17:02; Start 12/08/17 at 17:00; Stop 12/10/17 at 16:11; Status DC Citalopram Hydrobromide (CeleXA) 20 mg DAILY PO Last administered on 12/08/17at 08:30; Start 12/08/17 at 09:00; Stop 12/08/17 at 18:24; Status DC Multivitamins/ Calcium (Thera-M Plus) 1 tab QHS PO Last administered on at 19:47; Start 12/07/17 at 21:00; Stop 12/28/17 at 10:51; Status DC Spironolactone (Aldactone) 50 mg BID@0900,1500 PO Last administered on at 08:01; Start 12/08/17 at 09:00; Stop 12/16/17 at 14:00; Status DC Citalopram Hydrobromide (CeleXA) 10 mg DAILY PO Last administered on 12/28/17at 09:33; Start 12/09/17 at 09:00; Stop 12/28/17 at 10:51; Status DC Risperidone (RisperDAL) 3 mg HS PO Last administered on 12/17/17at 19:33; Start 12/08/17 at 21:00; Stop 12/17/17 at 21:00; Status DC Divalproex Sodium (Depakote Sprinkles) 250 mg DAILY PO Last administered on 12/12at 08:09; Start 12/09/17 at 09:00; Stop 12/12/17 at 18:41; Status DC Divalproex Sodium (Depakote Sprinkles) 500 mg HS PO Last administered on at 20:26; Start 12/08/17 at 21:00; Stop 12/12/17 at 18:41; Status DC Levothyroxine Sodium (Synthroid) 75 mcg DAILY06 PO Last administered on at 05:33; Start 12/10/17 at 06:00; Stop 12/28/17 at 10:51; Status DC Enoxaparin Sodium (Lovenox) 40 mg Q24H SQ Last administered on 12/27/17at 19:51 ; Start 12/09/17 at 22:00; Stop 12/28/17 at 10:51; Status DC Simvastatin (Zocor) 10 mg HS PO Last administered on 12/27/17at 19:47; Start 12/10/17 at 21:00; Stop 12/28/17 at 10:51; Status DC Vitamin D (Vitamin D3) 2,000 unit DAILYBFRSUP PO Last administered on at 17:46; Start 12/11/17 at 17:00; Stop 12/28/17 at 10:51; Status DC Divalproex Sodium (Depakote Sprinkles) 500 mg BID PO Last administered on at 09:35; Start 12/12/17 at 21:00; Stop 12/28/17 at 10:51; Status DC Buspirone HCl (Buspar) 5 mg BID92 PO Last administered on 12/28/17at 09:33; Start 12/14/17 at 09:00; Stop 12/28/17 at 10:51; Status DC Risperidone (RisperDAL) 0.25 mg DAILY PO Last administered on 12/28/17at 09:35; Start 12/16/17 at 09:00; Stop 12/28/17 at 10:51; Status DC Risperidone (RisperDAL) 2.75 mg HS PO Last administered on 12/20/17at 19:40; Start 12/18/17 at 21:00; Stop 12/20/17 at 20:59; Status DC Risperidone (RisperDAL) 2.5 mg QHS PO Last administered on 12/22/17at 19:52; Start 12/21/17 at 21:00; Stop 12/23/17 at 20:59; Status DC Risperidone (RisperDAL) 2.25 mg QHS PO Last administered on 12/26/17at 20:34; Start 12/24/17 at 21:00; Stop 12/26/17 at 20:59; Status DC Risperidone (RisperDAL) 2 mg HS PO Last administered on 12/27/17at 19:50; Start 12/27/17 at 21:00; Stop 12/28/17 at 10:51; Status DC Risperidone (RisperDAL) 1.75 mg HS PO ; Start 12/30/17 at 21:00; Stop 12/30/17 at 21:00; Status DC Furosemide (Lasix) 20 mg DAILY PO Last administered on 12/28/17at 09:33; Start 12/17/17 at 09:00; Stop 12/28/17 at 10:51; Status DC Lisinopril (Prinivil) 5 mg DAILY PO Last administered on 12/28/17at 09:33; Start 12/17/17 at 09:00; Stop 12/28/17 at 10:51; Status DC Spironolactone (Aldactone) 50 mg DAILY08 PO Last administered on 12/28/17at 09: 32; Start 12/17/17 at 08:00; Stop 2/21/18 at 10:51; Status DC Active Scripts Active Reported Risperdal (Risperidone) 2 Mg Tablet 1.75 Mg PO HS Risperdal (Risperidone) 2 Mg Tablet 2 Mg PO HS Risperdal (Risperidone) 0.25 Mg Tablet 0.25 Mg PO DAILY Buspirone Hcl 5 Mg Tablet 5 Mg PO BID92 Analgesic [place] (Methyl Salicylate/Menthol) 28 Gm Oint...g. 1 Ottoniel TP PRN QID PRN Milk Of Magnesia (Magnesium Hydroxide) 2,400 Mg/10 Ml Oral.susp 2,400 Mg PO PRN QHS PRN Mag-Al Plus Xs Suspension (Mag Hydrox/Al Hydrox/Simeth) 30 Ml Oral.susp 15 Ml PO PRN AFTMEALHC PRN Lisinopril 5 Mg Tablet 5 Mg PO DAILY Furosemide 20 Mg Tablet 20 Mg PO DAILY Depakote Sprinkle (Divalproex Sodium) 125 Mg Cap.sprink 500 Mg PO BID Vitamin D3 (Cholecalciferol (Vitamin D3)) 1,000 Unit Tablet 2,000 Unit PO DAILYBFRSUP Tylenol (Acetaminophen) 325 Mg Tablet 650 Mg PO PRN Q6HRS PRN Levetiracetam 100 Mg/1 Ml Solution 8 Ml PO BID Spironolactone 50 Mg Tablet 50 Mg PO DAILY08 Escitalopram Oxalate 10 Mg Tablet 10 Mg PO DAILY Senna (Sennosides) 8.6 Mg Tablet 8.6 Mg PO HS Multivitamins (Multivitamin) 1 Each Tablet 1 Tab PO QHS Metformin Hcl 500 Mg Tablet 500 Mg PO BIDWMEALS Montelukast Sodium Tablet (Montelukast Sodium) 10 Mg Tablet 10 Mg PO HS Levothyroxine Sodium 75 Mcg Tablet 75 Mcg PO DAILY06 Aspirin Ec (Aspirin) 81 Mg Tablet. 81 Mg PO DAILY Simvastatin 10 Mg Tablet 10 Mg PO HS I have reviewed the current psychotropics carefully including drug interactions. Risk benefit ratio favors no change other than as noted in my dictated progress note. Diagnosis: Problems: (1) DISORGANIZED SCHIZOPHRENIA (2) Schizophrenia, disorganized, subchronic with acute exacerbation (3) Mood disorder as late effect of cerebrovascular accident (CVA) MOE CLARK MD Dec 28, 2017 19:02
--- NOTE | 2017-12-28 20:59 | PN ---
DATE: 12/27/2017 This is a late entry for 12/27/2017 and covers elements not covered in my initial note of 12/27/2017. I met with the patient the evening of 12/27/2017. The patient slept 6-3/4 hours previous evening, urinated on the floor, then was quite abrasive with the staff stating that it was "their job to clean it up," somewhat entitled. Otherwise, she has done reasonably well, still has some mood lability. No active psychotic symptoms. REVIEW OF SYSTEMS: Ambulation impaired, with walker. No CV, , pulmonary, eye system symptoms on review. No drooling noted. MENTAL STATUS EXAM: Oriented to herself and situation. Speech, often responses monosyllabic. Abstraction fair, computation impaired, language function intact, attention span short. Mood and affect, somewhat withdrawn at times. No suicidal or homicidal ideation. LABORATORY DATA: Reviewed. IMPRESSION: Schizoaffective disorder, bipolar type, mixed, in partial remission. Rest unchanged. PLAN: Continue to taper the Risperdal, which is currently on 0.25 mg in the morning, 2 mg in the evening. Continue rest unchanged. MAN Alex CLARK MD DR: CADY/aggie JOB#: [id number] / [id number]
--- NOTE | 2017-12-29 21:49 | DS ---
DATE OF DISCHARGE: 12/28/2017 DISCHARGE SUMMARY/PSYCHIATRIC PROGRESS NOTE REASON FOR ADMISSION: Please refer to the admission history for details. This note covers elements not covered in my initial note of 12/28/2017. Briefly, the patient is a 57-year-old female referred to us from [facility] by her primary care physician and admitted by the [facility] salesforce administrator who is her legal guardian on account of worsening symptoms of bipolar disorder, refusing medications, being combative with cares, increased agitation, hoarding behaviors, incontinent, uncooperative, resistive with cares. The patient was grandiose, labile, had failed outpatient psychiatric interventions resulting in this referral. SIGNIFICANT FINDINGS AND CLINICAL COURSE: Following admission, the patient was seen daily individually by myself, followed medically per Dr. Zarate/Dr. Arellano. She is quite withdrawn, isolative, and given the fact that she had had a CVA and was on fairly large dosages of Risperdal at admission, it was decided to gradually taper the Risperdal. The taper was initiated and it is recommended that once she is back at [facility] post-discharge, attempt should be made to continuously taper the Risperdal until it can be dropped down to perhaps 0.5 mg total dosage in a 24-hour period. The reduction could be by an element of 0.25 mg a day every 3-5 days until we reached the target dosage mentioned. At discharge, she was also on Keppra 800 mg per 8 mL b.i.d., Celexa 10 mg a day, Depakote 500 mg b.i.d. with Valproic acid level of therapeutic at 56, BuSpar 5 mg b.i.d. REVIEW OF SYSTEMS: Prior to discharge on 12/28/2017, ambulation impaired, in wheelchair. No CV, , pulmonary, eye system symptoms on review. MENTAL STATUS EXAM: Oriented to herself and situation. Speech has some latency, low in volume, coherent, but this typical for her, pleasant, smiling. Abstraction fair, computation impaired, language function intact, attention span short. Mood and affect improved. No suicidal or homicidal ideation. No clear psychotic symptoms. CONDITION AT DISCHARGE: Improved. FINAL DIAGNOSES: Bipolar 1 disorder, mixed with psychotic features, in partial remission; schizoaffective disorder, bipolar type, mixed with psychotic features, in partial remission; Rest unchanged from admission. DISCHARGE MEDICATIONS: Please refer to the EMRAD and the taper of Risperdal noted above. Time for discharge day management greater than 30 minutes. Outpatient medical and psychiatric followup at the care home. MAN Alex CLARK MD DR: CADY/aggie JOB#: [id number] / [id number]
[2017-12-30] MEDS ORDERED: risperiDONE 0.5 MG TABLET. PO SCH (21:00)
== END 2017-12-28 10:15 | disposition home or self-care (01) | DRG 885 ==
LOC: ER 13:21 → EEVIPCON 13:21 → GEROPSY 16:45
PROVIDERS: ADMIT Psychiatry & Neurology Psychiatry; ATTEND Psychiatry & Neurology Psychiatry
DX: F25.0 Schizoaffective disorder, bipolar type (principal); F03.90 Unspecified dementia, unspecified severity, without behavioral disturbance, psychotic disturbance, mood disturbance, and anxiety; I69.351 Hemiplegia and hemiparesis following cerebral infarction affecting right dominant side; Z68.41 Body mass index [BMI] 40.0-44.9, adult; I69.315 Cognitive social or emotional deficit following cerebral infarction; E03.9 Hypothyroidism, unspecified; F09 Unspecified mental disorder due to known physiological condition; I10 Essential (primary) hypertension; J45.909 Unspecified asthma, uncomplicated; E66.9 Obesity, unspecified; R41.83 Borderline intellectual functioning; Z99.3 Dependence on wheelchair; F41.9 Anxiety disorder, unspecified; E11.9 Type 2 diabetes mellitus without complications; E78.5 Hyperlipidemia, unspecified; G40.909 Epilepsy, unspecified, not intractable, without status epilepticus; Z79.899 Other long term (current) drug therapy; Z87.891 Personal history of nicotine dependence; I69.898 Other sequelae of other cerebrovascular disease; I69.320 Aphasia following cerebral infarction
CPT/HCPCS: 36415; 80053; 80061; 80164; 80307; 81001; 82306; 82607; 83036; 83540; 83550; 83735; 84436; 84443; 84480; 84484; 85025; 86593; 93005; 93971; G0480; J1650; 97110; 97116; 97530; 99285-25; G0479